=== PATIENT | male | born 1965 | race Two or more races ===

== ENCOUNTER 2020-04-29 16:09 | Outpatient (REF) | payer MEDICARE, MEDICAID, SELFPAY ==
--- NOTE | 2020-04-29 16:18 | XR_ITS ---
EXAMINATION: XR HAND, RIGHT CLINICAL INFORMATION: Pain in right hand COMPARISON: None TECHNIQUE: PA, lateral, and oblique views of the right hand. FINDINGS: The bones and soft tissues are normal. No fracture. Alignment is anatomic. Joint spaces are maintained. No erosions or soft tissue calcifications. XR/XR hand RT 2V IMPRESSION: Normal right hand.
== END 2020-04-29 16:10 | disposition home or self-care (01) ==
LOC: HO.XRAY 16:09
PROVIDERS: PCP Internal Medicine; Visit Provider Internal Medicine
DX: M79.641 Pain in right hand (principal)
CPT/HCPCS: 73120

== ENCOUNTER 2020-09-09 07:27 | Outpatient (REF) | payer MEDICARE, MEDICAID, SELFPAY | END 2020-09-09 07:28 | disposition home or self-care (01) | LOC: HO.HOSX 07:27 | PROVIDERS: Visit Provider Orthopaedic Surgery | DX: Z13.89 Encounter for screening for other disorder (principal) ==

== ENCOUNTER 2020-11-25 08:09 | Outpatient (REF) | payer MEDICARE, MEDICAID, SELFPAY ==
--- NOTE | ~2020-11-25 | XR_ITS ---
EXAMINATION: XR PELVIS CLINICAL INFORMATION: Pain COMPARISON: Previous x-ray March 2019 TECHNIQUE: AP view of the pelvis. FINDINGS: There is a left hip replacement in satisfactory position. No fracture or dislocation or x-ray evidence of loosening is seen. The right hip joint is normal. Bones of the pelvis are normal. XR/XR pelvis 1-2V IMPRESSION: Satisfactory appearance of left hip replacement.
== END 2020-11-25 08:10 | disposition home or self-care (01) ==
LOC: HO.HOSX 08:09
PROVIDERS: Visit Provider Orthopaedic Surgery
DX: M25.552 Pain in left hip (principal); Z96.649 Presence of unspecified artificial hip joint
CPT/HCPCS: 72170; 99212

== ENCOUNTER → 2021-07-22 12:50 | Outpatient (BNVA) | payer MEDICARE, MEDICAID, OTHER, SELFPAY | PROVIDERS: PCP Internal Medicine; Referring Provider Internal Medicine; Visit Provider Nurse Practitioner Family | DX: Z12.11 Encounter for screening for malignant neoplasm of colon (principal); K21.9 Gastro-esophageal reflux disease without esophagitis | CPT/HCPCS: 99202 ==

== ENCOUNTER 2021-09-17 10:38 | Outpatient (REF) | payer MEDICARE, OTHER, SELFPAY ==
[2021-09-17 11:14] LABS: MANUAL DIFF FLAG NO
[2021-09-17 12:11] LABS: Basophils Absolute Auto 0.1 X10*3/uL (0.0-0.2); Basophils Percent Auto 1.4 % (0-2); Eosinophils Absolute Auto 0.2 X10*3/uL (0.0-0.4); Eosinophils Percent Auto 2.9 % (0-4); Hematocrit 42.9 % (42.0-52.0); Hemoglobin 14.8 g/dl (14.0-18.0); Imm Gran Abs Auto 0.02 X10*3/uL (0.00-0.03); Imm Gran Pct Auto 0.3 % (0.0-0.4); Lymphocytes Absolute Auto 1.6 X10*3/uL (1.2-4.9); Lymphocytes Percent Auto 23.8 % (20-40); Mean Corpuscular HGB Conc 34.5 g/dl (31.0-36.0); Mean Corpuscular Hemoglobin 32.7 pg (27.0-33.0); Mean Corpuscular Volume 94.9 fL (80.0-98.0); Mean Platelet Volume 9.6 fL (9.4-12.4); Monocytes Absolute Auto 0.7 X10*3/uL (0.1-1.2); Monocytes Percent Auto 10.1 % (2-11); Neutrophils Percent Auto 61.5 % (45-73); Platelet Count 465 X10*3/uL (160-400); Red Blood Count 4.52 X10*6/uL (4.60-5.80); Red Cell Distribution Width 12.9 % (11.0-16.0); White Blood Count 6.5 X10*3/uL (4.8-10.8)
[2021-09-17 13:11] LABS: Thyroid Stimulating Hormone 0.95 uIU/mL (0.32-4.0)
[2021-09-17 13:12] LABS: Alanine Aminotransferase 90 U/L (0-40); Alkaline Phosphatase 281 U/L (39-117); Anion Gap 13 (12-20); Aspartate Amino Transferase 173 U/L (5-37); Bilirubin Total 0.2 mg/dL (0.0-1.0); Blood Urea Nitrogen 8 mg/dL (9-16); Calcium 8.8 mg/dL (8.4-10.2); Carbon Dioxide 24 mmol/L (22-29); Chloride 101 mmol/L (96-108); Cholesterol 176 mg/dL; Estimated Glomerular Filt Rate > 60; Glucose Random 108 mg/dL (60-115); HDL Cholesterol 38 mg/dL; Potassium 4.1 mmol/L (3.3-5.1); Sodium 134 mmol/L (135-145); Total Protein 7.4 g/dL (6.5-8.0); Triglycerides 570 mg/dL
[2021-09-17 13:28] LABS: Folate 12.7 ng/mL (> or = 4.0); Vitamin B12 345 pg/mL (200-900)
[2021-09-21 13:27] LABS: Vitamin D 25-OH, D2 <4 ng/mL; Vitamin D 25-OH, D3 23 ng/mL; Vitamin D 25-OH, Total 23 ng/mL (30-100)
== END 2021-09-17 10:39 | disposition home or self-care (01) ==
LOC: HO.LAB 10:38
PROVIDERS: Absent Provider Nurse Practitioner Family; PCP Internal Medicine; Visit Provider Nurse Practitioner Acute Care
DX: E78.00 Pure hypercholesterolemia, unspecified (principal); E55.9 Vitamin D deficiency, unspecified
CPT/HCPCS: 36415; 80053; 80061; 82306; 82607; 82746; 84443; 85025

== ENCOUNTER 2021-09-18 12:38 | Outpatient (REF) | payer MEDICARE, OTHER, SELFPAY | END 2021-09-18 12:39 | disposition home or self-care (01) | LOC: HO.LNP 12:38 | PROVIDERS: Visit Provider Nurse Practitioner Family | DX: K21.9 Gastro-esophageal reflux disease without esophagitis (principal) | CPT/HCPCS: 87338 ==

== ENCOUNTER 2022-11-13 06:05 | Emergency (ER) | payer MEDICARE, MEDICAID, SELFPAY ==
[2022-11-13] VITALS (7 sets, daily range): BP systolic 115–204; BP diastolic 72–136; PULSE 84–97; RESP 14–21; TEMP 36.6; O2SAT 95–100; BMI 23.8
--- NOTE | ~2022-11-13 | CT_ITS ---
EXAMINATION: CT HEAD WITHOUT CONTRAST CLINICAL INFORMATION: Facial numbness COMPARISON: 05/26/2018 TECHNIQUE: Contiguous axial imaging was performed from the skull base to vertex without intravenous administration of contrast. This CT examination was performed using dose optimization techniques as appropriate, variously including the following: *Automated exposure control *Adjustment of mA and/or kV according to patient size (this includes techniques or standardized protocols for targeted exams where dose is matched to indication/reason for exam; i.e. extremities or head) *Use of iterative reconstruction technique DLP: 611 mGy-cm FINDINGS: There is no evidence of acute intracranial hemorrhage or territorial infarction. No abnormal mass effect or midline shift is seen. Raman to white matter differentiation is well preserved. No extra-axial fluid collections are identified. No hydrocephalus. No significant volume loss. There is no abnormal attenuation within the brain parenchyma. No acute osseous or soft tissue abnormality. The mastoid air cells and visualized portions of the paranasal sinuses are well aerated. CT/CT head/brain wo IV con IMPRESSION: No acute intracranial pathology.
--- NOTE | 2022-11-13 06:11 | ECG_ITS ---
Test Reason : NUMBNESS Blood Pressure : / mmHG Vent. Rate : 086 BPM Atrial Rate : 086 BPM P-R Int : 144 ms QRS Dur : 080 ms QT Int : 382 ms P-R-T Axes : 027 -07 041 degrees QTc Int : 457 ms Normal sinus rhythm Minimal voltage criteria for LVH, may be normal variant ( R in aVL ) Nonspecific ST abnormality Abnormal ECG When compared with ECG of 14-MAY-2019 13:55, No significant change was found Referred By: Lisa Ward Electronically Signed By:NOE TRACY
--- NOTE | 2022-11-13 06:14 | ED.GENADULT ---
HPI - General Adult General Chief complaint: General Medical Stated complaint: Chest pain Time Seen by Provider: 11/13/22 06:10 Source: patient and family Mode of arrival: ambulatory Limitations: no limitations History of Present Illness HPI narrative: Patient comes to the emergency room complaining of right-sided chest pain, bilateral facial numbness, slurred speech, bilateral leg cramping. Patient states that all of his symptoms started approximately 6-1/2 hours ago. Related Data Home Medications Medication Instructions Recorded Confirmed thiamine HCl (vitamin B1) 100 mg 100 mg PO DAILY 04/26/20 11/13/22 tablet omeprazole 20 mg capsule,delayed 20 mg PO BID@0630,1630 11/13/22 11/13/22 release Previous Rx's Medication Instructions Recorded hydroxyzine HCl 50 mg tablet 50 mg PO BID #180 tabs 09/14/22 fluticasone propionate 50 1 spray intranasal DAILY #16 mL 10/10/22 mcg/actuation nasal spray,suspension tramadol 50 mg tablet 50 mg PO BID PRN pain #56 tabs 10/29/22 clonazepam 1 mg tablet 1 mg PO DAILY PRN anxiety 30 days 11/03/22 #30 tabs gabapentin 300 mg capsule 300 mg PO BID #180 caps 11/06/22 calcium carbonate 500 mg calcium 500 mg PO DAILY #30 tabs 11/13/22 (1,250 mg) tablet magnesium oxide 500 mg capsule 500 mg PO DAILY #30 caps 11/13/22 Allergies Allergy/AdvReac Type Severity Reaction Status Date / Time fenofibrate [Tricor] Allergy Unknown nausea, Verified 11/13/22 06:18 altered taste Review of Systems Review of Systems: Constitutional : No Weight loss, No Fever, No Chills, No Night Sweats, No Fatigue, No Malaise ENT/Mouth : No Hearing loss, No Ear Pain, No Nasal Congestion, No Sinus Pain, No Hoarseness, No sore throat, No Rhinorrhea, No Swallowing Difficulty Eyes: No Eye Pain, No Swelling, No Redness, No Foreign Body, No Discharge, No Vision Changes Cardiovascular : Complaining of right-sided Chest Pain, No SOB, No Dyspnea on Exertion, No Orthopnea, No Edema, No Palpitations Respiratory : No Cough, No Sputum, No Wheezing, No Smoke Exposure, No Dyspnea Gastrointestinal : No Nausea, No Vomiting, No Diarrhea, No Constipation, No abdominal Pain, No Hematochezia, No Melena Genitourinary : no irregular bleeding, No Dysuria, No Urinary Frequency, No Hematuria, No Urinary Incontinence, No Urgency, No Flank Pain, No Urinary Flow Changes, No Hesitancy Musculoskeletal : No joint pain, No Myalgias, No Joint Swelling Skin : No Skin Lesions, No rash Neuro : No Weakness, No Numbness, complain of paresthesias in the face bilaterally, both arms, both legs No Loss of Consciousness, No Dizziness, No Headache Psych : No Anxiety/Panic, No Depression, No SI/HI/AH/VH, No Social Issues, Heme/Lymph: No Bruising, No Bleeding,No Lymphadenopathy Endocrine : No Polyuria, No Polydipsia, No Temperature Intolerance FOR[facility], LAT[facility] Past Medical History Medical History Alcohol abuse Anxiety and depression Avascular necrosis of bone of left hip Colon cancer screening declined GERD (gastroesophageal reflux disease) History of pancreatitis Hypercholesterolemia Hypertriglyceridemia Insomnia Polysubstance abuse Surgical History H/O total hip arthroplasty History of drainage of abscess Family History Family History Father CAD (coronary artery disease) S/P CABG x 2 Mother Hypertension Osteoarthritis Brother Alive and well Sister Deaf Maternal Grandmother Cancer Maternal Grandfather Dementia Family/Other Alzheimers disease Social History Social History Housing: Apartment Alcohol intake: current Alcohol intake frequency: holidays/special occasions only Patient Tobacco Use Status: Former Tobacco user Tobacco use type: Cigarette Years Smoked: 2010 quit e-Cigarette/Vaping Use: Never Used Second Hand Smoke Exposure: No Advance Directives: No Advance Directives Information Provided: Yes Current occupational status: disabled and other Current occupation: right handed. Cognitive needs: No Hearing needs: No Vision needs: No Physical Exam ED Vital Signs: Vital Signs - 24 hr 11/13/22 06:11 11/13/22 06:25 11/13/22 06:43 Temperature 97.8 F Pulse Rate 97 87 85 Respiratory Rate 19 14 18 Blood Pressure 204/136 H 196/124 H 166/108 H Pulse Oximetry 100 98 97 Oxygen Delivery Method Room Air Room Air Room Air 05/26/23 08:44 11/13/22 10:09 11/13/22 10:10 Temperature Pulse Rate 91 84 85 Respiratory Rate 21 H 21 H 18 Blood Pressure 161/89 H 134/94 H 134/94 H Pulse Oximetry 97 95 Oxygen Delivery Method Room Air Room Air Room Air 11/13/22 11:41 Temperature Pulse Rate 94 Respiratory Rate 18 Blood Pressure 115/72 Pulse Oximetry 95 Oxygen Delivery Method Room Air BMI result Body Mass Index 23.8 Const Other: Constitutional : No Weight loss, No Fever, No Chills, No Night Sweats, No Fatigue, No Malaise ENT/Mouth : No Hearing loss, No Ear Pain, No Nasal Congestion, No Sinus Pain, No Hoarseness, No sore throat, No Rhinorrhea, No Swallowing Difficulty Eyes: No Eye Pain, No Swelling, No Redness, No Foreign Body, No Discharge, No Vision Changes Cardiovascular : No Chest Pain, No SOB, No Dyspnea on Exertion, No Orthopnea, No Edema, No Palpitations Respiratory : No Cough, No Sputum, No Wheezing, No Smoke Exposure, No Dyspnea Gastrointestinal : No Nausea, No Vomiting, No Diarrhea, No Constipation, No abdominal Pain, No Hematochezia, No Melena Genitourinary : no irregular bleeding, No Dysuria, No Urinary Frequency, No Hematuria, No Urinary Incontinence, No Urgency, No Flank Pain, No Urinary Flow Changes, No Hesitancy Musculoskeletal : No joint pain, No Myalgias, No Joint Swelling Skin : No Skin Lesions, No rash Neuro : No Weakness, No Numbness, No Paresthesias, No Loss of Consciousness, No Dizziness, No Headache Psych : No Anxiety/Panic, No Depression, No SI/HI/AH/VH, No Social Issues, Heme/Lymph: No Bruising, No Bleeding,No Lymphadenopathy Endocrine : No Polyuria, No Polydipsia, No Temperature Intolerance NIH Stroke Scale Level of Consciousness: Alert Level of Consciousness Questions: Answers both questions correctly Level of Consciousness Commands: Performs both tasks correctly Best Gaze: Normal Visual: No visual loss Facial Palsy: Normal Motor Arm (Right): No drift Motor Arm (Left): No drift Motor Leg (Right): No drift Motor Leg (Left): No drift Limb Ataxia: Absent Sensory: Normal Best Language: No aphasia Dysarthia: Normal Extinction and Inattention: No abnormality Score: 0 Course Course Course Narrative: -patient seems very anxious. Patient's description of symptoms do not match specific area of stroke. Patient is outside of the window of treatment, patient arrived 6-1/2 hours after the onset of treatment. Symptoms are very mild, NIH score 0, patient is not a candidate for tPA -of patient's labs and imaging pending Reevaluation(s) Reevaluation #1: Patient is feeling much better following treatment. He has received magnesium calcium and potassium. His paresthesias have resolved. Will place patient on oral supplementation and he already has follow-up on the 15 of November. I am recommending repeat blood work at that time Time: 11:52 Medications Administered Discontinued Medications Generic Name Dose Route Start Last Admin Trade Name [place] PRN Reason Stop Dose Admin Amlodipine Besylate 10 mg 11/13/22 06:29 11/13/22 06:44 Amlodipine Besylate 10 Mg Tablet PO 11/13/22 06:30 10 mg ONCE ONE Administration Protocol Aspirin 325 mg 11/13/22 06:12 11/13/22 06:20 Aspirin Enteric Coated 325 Mg Tablet. PO 11/13/22 06:13 325 mg ONCE ONE Administration Calcium Carbonate/Cholecalciferol 500 mg 11/13/22 08:09 11/13/22 08:21 Calcium + Vitamin D 250 Mg Tablet PO 11/13/22 08:10 500 mg ONCE ONE Administration Folic Acid 1 mg 11/13/22 08:08 11/13/22 08:21 Folic Acid 1 Mg Tablet PO 11/13/22 08:09 1 mg ONCE ONE Administration Magnesium Sulfate 2 gm in 50 mls @ 25 mls/hr 11/13/22 07:39 11/13/22 10:10 Magnesium Sulfate/H2o IV 11/13/22 09:38 Infused ONCE ONE Infusion Lorazepam 1 mg 11/13/22 06:12 11/13/22 06:24 Lorazepam 1 Mg Tablet PO 11/13/22 06:13 1 mg ONCE ONE Administration Magnesium Oxide 800 mg 11/13/22 11:12 11/13/22 11:40 Magnesium Oxide 400 Mg Tablet PO 11/13/22 11:13 800 mg ONCE ONE Administration Multivitamins/Vitamin C 1 tab 11/13/22 08:08 11/13/22 08:21 Multivitamin Tablet PO 11/13/22 08:09 1 tab ONCE ONE Administration Potassium Chloride 40 meq 11/13/22 07:40 11/13/22 08:09 Potassium Chloride Er 20 Meq Tab.Er.Prt PO 11/13/22 07:41 40 meq ONCE ONE Administration Thiamine HCl 100 mg 11/13/22 08:08 11/13/22 08:21 Thiamine Hcl 100 Mg Tablet PO 11/13/22 08:09 100 mg ONCE ONE Administration Medical Decision Making Medical Decision Making MDM Narrative: -NIH score 0, patient is outside of the window of treatment for tPA, patient is at 6 and 1/2 hours on arrival daily. -patient noted to be hypertensive on arrival, 204/136, patient states he has never been told he is hypertensive. Patient given p.o. amlodipine 10 mg -my interpretation head CT, no intracranial bleed Lab Data 11/13/22 06:17 11/13/22 06:17 Labs: Lab Results 11/13/22 11/13/22 11/13/22 Range/Units 06:17 06:17 06:17 WBC 9.3 (4.8-10.8) X10*3/uL RBC 4.35 L (4.60-5.80) X10*6/uL Hgb 14.6 (14.0-18.0) g/dl Hct 40.9 L (42.0-52.0) % MCV 94.0 (80.0-98.0) fL MCH 33.6 H (27.0-33.0) pg MCHC 35.7 (31.0-36.0) g/dl RDW 13.3 (11.0-16.0) % Plt Count 345 D (160-400) X10*3/uL MPV 9.6 (9.4-12.4) fL Immature Gran % (Auto) 0.6 H (0.0-0.4) % Neut % (Auto) 46.3 (45-73) % Lymph % (Auto) 38.7 (20-40) % [place] % (Auto) 10.3 (2-11) % Eos % (Auto) 2.9 (0-4) % Baso % (Auto) 1.2 (0-2) % Lymph # (Auto) 3.6 (1.2-4.9) X10*3/uL [place] # (Auto) 1.0 (0.1-1.2) X10*3/uL Eos # (Auto) 0.3 (0.0-0.4) X10*3/uL Baso # (Auto) 0.1 (0.0-0.2) X10*3/uL Abs Immat Gran (auto) 0.06 H (0.00-0.03) X10*3/uL Absolute Neuts (auto) 4.3 (2.0-8.3) x10*3/uL Absolute Nucleated RBC 0.030 H (0.0-0.012) X10*3/uL Nucleated RBC % (auto) 0.3 H (0.0-0.2) /100WBC Sodium 140 (135-145) mmol/L Potassium 3.7 (3.3-5.1) mmol/L Chloride 101 (96-108) mmol/L Carbon Dioxide 25 (22-29) mmol/L Anion Gap 18 (12-20) BUN 10 (9-16) mg/dL Creatinine 0.77 (0.5-1.4) mg/dL Estim Creat Clear Calc 82.7 Estimated GFR > 60 Random Glucose 94 (60-115) mg/dL Calcium 6.6 L D (8.4-10.2) mg/dL Phosphorus (2.7-4.5) mg/dL Magnesium < 0.6 L* (1.6-2.6) mg/dL Total Bilirubin 0.3 (0.0-1.0) mg/dL Direct Bilirubin < 0.1 (0.0-0.5) mg/dL AST 103 H (5-37) U/L ALT 35 (0-40) U/L Alkaline Phosphatase 140 H (39-117) U/L Troponin I High Sens 3.3 (<3.5-35.0) ng/L Total Protein 7.9 (6.5-8.0) g/dL Albumin 3.9 (3.5-5.0) g/dL Vitamin B12 (200-900) pg/mL Folate (> or = 4.0) ng/mL Urine Color Urine Appearance Urine pH (5.0-9.0) Ur Specific [place] (1.005-1.025) Urine Protein (Neg-Trace) mg/dL Urine Glucose (UA) (Negative) mg/dL Urine Ketones (Negative) mg/dL Urine Blood (Negative) Urine Nitrite (Negative) Ur Leukocyte Esterase (Negative) Urine Opiates Screen (Not Detect) Urine Fentanyl Screen (Not Detect) Ur Barbiturates Screen (Not Detect) Ur Phencyclidine Scrn (Not Detect) Ur Amphetamines Screen (Not Detect) U Benzodiazepines Scrn (Not Detect) Urine Cocaine Screen (Not Detect) U Marijuana (THC) Screen (Not Detect) Ethyl Alcohol < 10 mg/dL 11/13/22 11/13/22 11/13/22 Range/Units 10:16 10:16 10:16 WBC (4.8-10.8) X10*3/uL RBC (4.60-5.80) X10*6/uL Hgb (14.0-18.0) g/dl Hct (42.0-52.0) % MCV (80.0-98.0) fL MCH (27.0-33.0) pg MCHC (31.0-36.0) g/dl RDW (11.0-16.0) % Plt Count (160-400) X10*3/uL MPV (9.4-12.4) fL Immature Gran % (Auto) (0.0-0.4) % Neut % (Auto) (45-73) % Lymph % (Auto) (20-40) % [place] % (Auto) (2-11) % Eos % (Auto) (0-4) % Baso % (Auto) (0-2) % Lymph # (Auto) (1.2-4.9) X10*3/uL [place] # (Auto) (0.1-1.2) X10*3/uL Eos # (Auto) (0.0-0.4) X10*3/uL Baso # (Auto) (0.0-0.2) X10*3/uL Abs Immat Gran (auto) (0.00-0.03) X10*3/uL Absolute Neuts (auto) (2.0-8.3) x10*3/uL Absolute Nucleated RBC (0.0-0.012) X10*3/uL Nucleated RBC % (auto) (0.0-0.2) /100WBC Sodium 141 (135-145) mmol/L Potassium 3.3 (3.3-5.1) mmol/L Chloride 102 (96-108) mmol/L Carbon Dioxide 28 (22-29) mmol/L Anion Gap 14 (12-20) BUN 9 (9-16) mg/dL Creatinine 0.72 (0.5-1.4) mg/dL Estim Creat Clear Calc 88.4 Estimated GFR > 60 Random Glucose 110 (60-115) mg/dL Calcium 6.6 L (8.4-10.2) mg/dL Phosphorus 3.8 (2.7-4.5) mg/dL Magnesium 1.3 L* (1.6-2.6) mg/dL Total Bilirubin (0.0-1.0) mg/dL Direct Bilirubin (0.0-0.5) mg/dL AST (5-37) U/L ALT (0-40) U/L Alkaline Phosphatase (39-117) U/L Troponin I High Sens (<3.5-35.0) ng/L Total Protein (6.5-8.0) g/dL Albumin (3.5-5.0) g/dL Vitamin B12 261 (200-900) pg/mL Folate > 20.0 (> or = 4.0) ng/mL Urine Color Yellow Urine Appearance Clear Urine pH 6.0 (5.0-9.0) Ur Specific [place] 1.010 (1.005-1.025) Urine Protein Negative (Neg-Trace) mg/dL Urine Glucose (UA) Negative (Negative) mg/dL Urine Ketones Negative (Negative) mg/dL Urine Blood Negative (Negative) Urine Nitrite Negative (Negative) Ur Leukocyte Esterase Negative (Negative) Urine Opiates Screen Not Detected (Not Detect) Urine Fentanyl Screen Not Detected (Not Detect) Ur Barbiturates Screen Not Detected (Not Detect) Ur Phencyclidine Scrn Not Detected (Not Detect) Ur Amphetamines Screen Not Detected (Not Detect) U Benzodiazepines Scrn Not Detected (Not Detect) Urine Cocaine Screen POSITIVE H (Not Detect) U Marijuana (THC) Screen Not Detected (Not Detect) Ethyl Alcohol mg/dL Radiology Impression Discussion of test interpretation with radiology: I have reviewed the radiologist's reading. Radiologist Impression: FINDINGS: There is no evidence of acute intracranial hemorrhage or territorial infarction. No abnormal mass effect or midline shift is seen. Raman to white matter differentiation is well preserved. No extra-axial fluid collections are identified. No hydrocephalus. No significant volume loss. There is no abnormal attenuation within the brain parenchyma. No acute osseous or soft tissue abnormality. The mastoid air cells and visualized portions of the paranasal sinuses are well aerated. ? CT/CT head/brain wo IV con IMPRESSION: No acute intracranial pathology. Critical Care Time Critical Care Time Critical Care Time: Yes Total Critical Care Time: 35 Attestation: 35 minutes of a of critical care time spent outside of any procedures including bedside re-evaluations, interpretation of medical data, re-evaluations, documentation in terms of a potentially severe morbidity related illness including severe electrolyte abnormalities with neurologic manifestations Discharge Plan Discharge Clinical Impression: Chest pain, Hypomagnesemia, Hypocalcemia, Paresthesia, Alcohol abuse, Elevated LFTs Patient Disposition: Home, Self-Care Instructions: Chest Pain (DC), Abuse of Alcohol (DC), Paresthesia (ED), Hypocalcemia (ED), Hypomagnesemia (ED) Prescriptions: New magnesium oxide 500 mg capsule 500 mg PO DAILY Qty: 30 0RF calcium carbonate 500 mg calcium (1,250 mg) tablet 500 mg PO DAILY Qty: 30 0RF No Action hydroxyzine HCl 50 mg tablet 50 mg PO BID Qty: 180 2RF fluticasone propionate 50 mcg/actuation spray,suspension 1 spray intranasal DAILY Qty: 16 5RF tramadol 50 mg tablet 50 mg PO BID PRN (Reason: pain) Qty: 56 0RF clonazepam 1 mg tablet 1 mg PO DAILY PRN (Reason: anxiety) 30 Days Qty: 30 0RF gabapentin 300 mg capsule 300 mg PO BID Qty: 180 2RF omeprazole 20 mg Capsule,Delayed Release(Dr/Ec) 20 mg PO BID@0630,1630 thiamine HCl (vitamin B1) 100 mg tablet 100 mg PO DAILY Referrals: Physician,Unknown J [Primary Care Provider] - 3 days
--- NOTE | 2022-11-13 06:18 | PC.NURSE ---
Pt to CT.
[2022-11-13] MEDS: Aspirin Enteric Coated 325 MG TABLET.DR PO (06:20)
[2022-11-13 06:24] LABS: MANUAL DIFF FLAG NO
[2022-11-13] MEDS: LORazepam 1 MG TABLET PO (06:24)
[2022-11-13 06:31] LABS: Basophils Absolute Auto 0.1 X10*3/uL (0.0-0.2); Basophils Percent Auto 1.2 % (0-2); Eosinophils Absolute Auto 0.3 X10*3/uL (0.0-0.4); Eosinophils Percent Auto 2.9 % (0-4); Hematocrit 40.9 % (42.0-52.0); Hemoglobin 14.6 g/dl (14.0-18.0); Imm Gran Abs Auto 0.06 X10*3/uL (0.00-0.03); Imm Gran Pct Auto 0.6 % (0.0-0.4); Lymphocytes Absolute Auto 3.6 X10*3/uL (1.2-4.9); Lymphocytes Percent Auto 38.7 % (20-40); Mean Corpuscular HGB Conc 35.7 g/dl (31.0-36.0); Mean Corpuscular Hemoglobin 33.6 pg (27.0-33.0); Mean Platelet Volume 9.6 fL (9.4-12.4); Monocytes Percent Auto 10.3 % (2-11); NRBC Pct Auto 0.3 /100WBC (0.0-0.2); Neutrophils Absolute Auto 4.3 x10*3/uL (2.0-8.3); Neutrophils Percent Auto 46.3 % (45-73); Platelet Count 345 X10*3/uL (160-400); Red Blood Count 4.35 X10*6/uL (4.60-5.80); Red Cell Distribution Width 13.3 % (11.0-16.0); White Blood Count 9.3 X10*3/uL (4.8-10.8)
[2022-11-13] MEDS: amLODIPine Besylate 10 MG TABLET PO (06:44)
[2022-11-13 07:04] LABS: Troponin-I High Sensitivity 3.3 ng/L (<3.5-35.0)
--- NOTE | 2022-11-13 07:14 | PC.NURSE ---
Resumed care of this patient, He is a/ox4, reporting he is feeling much better, the numbness is gone, stating he is feeling much better, he feels it may have been an anxiety attack. Awaiting lab results at this time
[2022-11-13 07:18] LABS: Alanine Aminotransferase 35 U/L (0-40); Albumin Level 3.9 g/dL (3.5-5.0); Alkaline Phosphatase 140 U/L (39-117); Anion Gap 18 (12-20); Aspartate Amino Transferase 103 U/L (5-37); Bilirubin Direct < 0.1 mg/dL (0.0-0.5); Bilirubin Total 0.3 mg/dL (0.0-1.0); Blood Urea Nitrogen 10 mg/dL (9-16); Calcium 6.6 mg/dL (8.4-10.2); Carbon Dioxide 25 mmol/L (22-29); Chloride 101 mmol/L (96-108); Creatinine Clr Calc Pharmacy 82.7; Estimated Glomerular Filt Rate > 60; Ethanol < 10 mg/dL; Glucose Random 94 mg/dL (60-115); Potassium 3.7 mmol/L (3.3-5.1); Sodium 140 mmol/L (135-145); Total Protein 7.9 g/dL (6.5-8.0)
[2022-11-13 07:39] LABS: Magnesium < 0.6 mg/dL (1.6-2.6)
[2022-11-13] MEDS: Magnesium Sulfate/H2O 2 GM/50 ML PIGGYBACK IV (08:09)
[2022-11-13] MEDS: Potassium Chloride ER 20 MEQ TAB.ER.PRT 40 MEQ PO (08:09)
[2022-11-13] MEDS: Folic Acid 1 MG TABLET PO (08:21)
[2022-11-13] MEDS: Thiamine HCL 100 MG TABLET PO (08:21)
[2022-11-13] MEDS: Calcium + Vitamin D 250 MG TABLET 500 MG PO (08:21)
[2022-11-13] MEDS: Multivitamin TABLET 1 TAB PO (08:21)
--- NOTE | 2022-11-13 08:22 | PC.NURSE ---
plan to repeat labs when Mg is done, PO replacement given, per
--- NOTE | 2022-11-13 10:29 | PHA.MEDREC ---
Addendum entered by Kumar Mccord 11/13/22 10:48: Patient mentioned that they are supposed to be on calcitriol for their hip replacement surgery, but admitted that they haven't taken the medication in months. Patient's pharmacy states that they haven't filled calcitriol since 09/22/21. Original Note: Pharmacy Consult ? Medication Reconciliation Pharmacy has completed the medication reconciliation. Spoke to patient to confirm meds.
[2022-11-13 10:39] LABS: Appearance Urine Clear; Color Urine Yellow; Glucose Urine UA Negative (Negative); Leukocyte Esterase Urine Negative (Negative); Nitrite Urine Negative (Negative); Urine Blood Negative (Negative); Urine Ketones Negative (Negative); Urine Protein Negative (Neg-Trace)
[2022-11-13 10:47] LABS: Amphetamine Screen Urine Not Detected (Not Detect); Barbiturates, Urine Not Detected (Not Detect); Benzodiazepines Screen Urine Not Detected (Not Detect); Cannabinoid Screen Urine Not Detected (Not Detect); Cocaine Screen Urine POSITIVE (Not Detect); Fentanyl, urine Not Detected (Not Detect); Opiate Screen Urine Not Detected (Not Detect); Phencyclidine Screen Urine Not Detected (Not Detect)
[2022-11-13 11:02] LABS: Anion Gap 14 (12-20); Blood Urea Nitrogen 9 mg/dL (9-16); Calcium 6.6 mg/dL (8.4-10.2); Carbon Dioxide 28 mmol/L (22-29); Chloride 102 mmol/L (96-108); Creatinine Clr Calc Pharmacy 88.4; Estimated Glomerular Filt Rate > 60; Glucose Random 110 mg/dL (60-115); Magnesium 1.3 mg/dL (1.6-2.6); Phosphorus 3.8 mg/dL (2.7-4.5); Potassium 3.3 mmol/L (3.3-5.1); Sodium 141 mmol/L (135-145)
[2022-11-13 11:30] LABS: Folate > 20.0 ng/mL (> or = 4.0); Vitamin B12 261 pg/mL (200-900)
[2022-11-13] MEDS: Magnesium Oxide 400 MG TABLET 800 MG PO (11:40)
== END 2022-11-13 12:02 | disposition home or self-care (01) ==
PROVIDERS: Emergency Medicine; Emergency Provider Emergency Medicine
DX: R07.9 Chest pain, unspecified (principal); E83.42 Hypomagnesemia; E83.51 Hypocalcemia; R20.2 Paresthesia of skin; F10.10 Alcohol abuse, uncomplicated; Y90.0 Blood alcohol level of less than 20 mg/100 ml; R79.89 Other specified abnormal findings of blood chemistry; F19.10 Other psychoactive substance abuse, uncomplicated; Z79.899 Other long term (current) drug therapy
CPT/HCPCS: 36415; 70450; 80048; 80076; 80307; 81003; 82607; 82746; 83735; 84100; 84484; 85025; 93005; 96365; 96366; 99285; J3475

== ENCOUNTER 2022-11-19 12:17 | Outpatient (REF) | payer MEDICARE, MEDICAID, SELFPAY | END 2022-11-19 12:18 | disposition home or self-care (01) | LOC: HO.HOSX 12:17 | PROVIDERS: Visit Provider Orthopaedic Surgery | DX: Z13.89 Encounter for screening for other disorder (principal) ==

== ENCOUNTER 2023-01-28 11:41 | Outpatient (REF) | payer MEDICARE, MEDICAID, SELFPAY ==
[2023-01-28 14:54] LABS: Alanine Aminotransferase 28 U/L (0-40); Albumin Level 4.3 g/dL (3.5-5.0); Alkaline Phosphatase 101 U/L (39-117); Anion Gap 17 (12-20); Aspartate Amino Transferase 52 U/L (5-37); Bilirubin Total 0.5 mg/dL (0.0-1.0); Blood Urea Nitrogen 7 mg/dL (9-16); Calcium 8.5 mg/dL (8.4-10.2); Carbon Dioxide 30 mmol/L (22-29); Chloride 97 mmol/L (96-108); Cholesterol 224 mg/dL; Estimated Glomerular Filt Rate > 60; Glucose Random 95 mg/dL (60-115); HDL Cholesterol 64 mg/dL; LDL Cholesterol Calculated 97 mg/dl; Potassium 2.8 mmol/L (3.3-5.1); Sodium 141 mmol/L (135-145); Triglycerides 318 mg/dL
== END 2023-01-28 11:42 | disposition home or self-care (01) ==
LOC: HO.LAB 11:41
PROVIDERS: PCP Internal Medicine; Visit Provider Internal Medicine
DX: E78.00 Pure hypercholesterolemia, unspecified (principal)
CPT/HCPCS: 36415; 80053; 80061

== ENCOUNTER 2023-02-16 09:34 | Outpatient (AMB) | payer MEDICARE, MEDICAID, SELFPAY ==
--- NOTE | 2023-02-16 09:37 | MHC.PC.OV ---
Vital Signs 02/16/23 09:42 Height 5 ft 2 in Weight 133 lb BMI 24.3 BP 138/72 Blood Pressure Location Lt brachial Position Sitting Pulse 82 Pulse Source Pulse Oximeter Pulse Oximetry (%) 97 Oxygen Delivery Method Room Air Intake Visit Reasons: Med visit follow up Allergies fenofibrate [Tricor] Allergy (Unknown, Verified 02/16/23 09:38) nausea, altered taste Medication List - Last Reconciled 02/16/23 by Gillian Dupree MD clonazepam 1 mg PO DAILY PRN 30 days fluticasone propionate 50 mcg/actuation 1 spray intranasal DAILY gabapentin 300 mg PO BID hydroxyzine HCl 50 mg PO BID omeprazole 20 mg PO BID@0630,1630 thiamine HCl (vitamin B1) 100 mg PO DAILY tramadol 50 mg PO BID PRN Tobacco use date assessed: 02/16/23 Dental Screening Dental Screen Date: 02/16/23 Did you have a dental visit in the last 12 months?: Yes Did you have a dental problem in the last 6 months where you did not have access to dental care?: No Was dental information given to patient?: Patient has dentist HPI Med visit follow up HPI Details 57-year-old male with a history of alcohol abuse GERD hypercholesterolemia gel as anxiety disorder last seen in November 2021. ER visit October 2022 chest pain hypo magnesemia hypocalcemia paresthesia alcohol abuse elevated liver function test replacement of the electrolytes. Discussed with the patient regarding the blood work that was done January 28 showing hypokalemia and the magnesium was not tested. Patient was given request today for blood work. Discussed the patient with the patient to take care of himself as he has not been. Patient drinks a pt of vodka week and occasional beer. Discussed the need to lower this down did notice liver function did come down but still a problem. [facility] Medical History Alcohol abuse Anxiety and depression Avascular necrosis of bone of left hip Colon cancer screening declined GERD (gastroesophageal reflux disease) History of pancreatitis Hypercholesterolemia Hypertriglyceridemia Insomnia Polysubstance abuse Surgical History H/O total hip arthroplasty History of drainage of abscess Family History (Updated 02/16/23 @ 09:40 by Perez Lau MA) Father CAD (coronary artery disease) S/P CABG x 2 Mother Hypertension Osteoarthritis Brother Alive and well Sister Deaf Maternal Grandmother Cancer Maternal Grandfather Dementia Family/Other Alzheimers disease Social History Housing: Apartment Alcohol intake: current Alcohol intake frequency: holidays/special occasions only Patient Tobacco Use Status: Former Tobacco user Tobacco use type: Cigarette Years Smoked: 2011 quit e-Cigarette/Vaping Use: Never Used Second Hand Smoke Exposure: No Current occupational status: disabled and other Current occupation: right handed. Cognitive needs: No Hearing needs: No Vision needs: No Questionnaire Thrive Questionnaire Date Thrive assessed: 02/16/23 I am a: Patient What is your living situation today?: I have a steady place to live Within the past 12 months, did the food you bought not last and you didn't have the money to get more?: Never true Within the past 12 months, did you worry whether your food would run out before you got money to buy more?: Never true Do you have trouble paying for medicines?: No Do you have trouble getting transportation to medical appointments?: No Do you have trouble paying your heating and electricity bill?: No Do you have trouble taking care of your child, family member or friend?: No Do you have trouble with day-to-day activities such as bathing, preparing meals, shopping, managing finances, etc.?: No Are you currently unemployed and looking for a job?: No Are you interested in more education?: No Please select the resources that you would like help with: None Currently or been in a relationship where the following occur: no concerns reported AUDIT C Alcohol Use Questionnaire (AUDIT-C) 1. How often do you have a drink containing alcohol?: 2-4 times a month 2. How many drinks containing alcohol do you have on a typical day when you are drinking?: 3 or 4 3. How often do you have six or more drinks on one occasion?: Never Total Score: 3 Score Reviewed/Action Taken: Yes (education provided on health risks associated with alcohol use. ) PRADIP-7 AMB Questionnaire PRADIP-7 Date PRADIP - 7 assessed: 02/16/23 Feeling nervous, anxious, or on edge: 1 = Several days Not being able to stop or control worryin = Several days Worrying too much about different things: 1 = Several days Trouble relaxin = Several days Being so restless that it is hard to sit still: 1 = Several days Becoming easily annoyed or irritable: 1 = Several days Feeling afraid as if something awful might happen: 1 = Several days Total PRADIP-7 score (0-4 normal; 5-9 mild; 10-14 moderate; 15-21 severe): 7 Source: Developed by Drs. Andrae Del Rio, Jennifer Ahmadi, Zeferino Villarreal and colleagues, with an educational medardo from [employer]. Physical exam (Primary Care) Vital Signs: Last Vital Signs Pulse 82 02/16/23 09:42 BP 138/72 02/16/23 09:42 Pulse Ox 97 02/16/23 09:42 Oxygen Delivery Method Room Air 02/16/23 09:42 BMI result Body Mass Index 24.3 Tobacco/Smoking Status: Tobacco use Status Tobacco use date assessed 02/16/23 02/16/23 09:41 Patient Tobacco Use Status Former Tobacco user 02/16/23 09:41 Tobacco use type Cigarette 02/16/23 09:41 e-Cigarette/Vaping Use Never Used 02/16/23 09:41 Thrive Assessment: Date of Thrive Assessment Date Thrive assessed 02/16/23 02/16/23 09:41 Currently or been in a relationship where the following occur: no concerns reported Const General: alert; No acute distress Eyes Conjunctivae: conjunctivae normal Resp Auscultation: clear to auscultation bilaterally Cardio Rate: regular rate Rhythm: regular rhythm GI Inspection: Yes normal to inspection Extrem General: Yes normal to inspection and No edema Assessment and Plan Assessment & Plan (1) GERD (gastroesophageal reflux disease): Code(s): K21.9 - Gastro-esophageal reflux disease without esophagitis Qualifiers: Esophagitis presence: esophagitis presence not specified Qualified Code(s): K21.9 - Gastro-esophageal reflux disease without esophagitis Plan: Avoid the foods that causes that usually spicy foods, tomato products, juices, coffee, soda and foods that your sensitive to. After eating do not lie down, allow 3-4 hours before in lie down. And keep the head of bed above 30 degrees to avoid the acid from going up. (2) Hypercholesterolemia: Code(s): E78.00 - Pure hypercholesterolemia, unspecified Plan: Avoid fried foods, chicken skin, eggs, butter margarine, pastries and meat. Be it pork or beef they have a lot of cholesterol LDL goal of less than 130 and triglyceride of less than 150 (3) Generalized anxiety disorder: Code(s): F41.1 - Generalized anxiety disorder Plan: Continue with anxiety medication (4) Colon cancer screening: Code(s): Z12.11 - Encounter for screening for malignant neoplasm of colon Plan: Patient is reminded about colonoscopy (5) Hypomagnesemia: Code(s): E83.42 - Hypomagnesemia (6) Hypokalemia: Code(s): E87.6 - Hypokalemia (7) Colonoscopy refused: Code(s): Z53.20 - Procedure and treatment not carried out because of patient's decision for unspecified reasons Orders: Orders Comprehensive Met. Panel Today E87.6 - Hypokalemia Magnesium Today E87.6 - Hypokalemia Phosphorus Today E87.6 - Hypokalemia Medications: Refilled clonazepam 1 mg PO DAILY 30 days PRN 30 tabs 0RF anxiety F32.9 - Major depressive disorder, single episode, unspecified, F41.9 - Anxiety disorder, unspecified tramadol 50 mg PO BID PRN 56 tabs 0RF pain E78.00 - Pure hypercholesterolemia, unspecified Discontinued calcium carbonate Discontinued Reason: Ancillary Entered New Order 500 mg PO DAILY 30 tabs 0RF magnesium oxide Discontinued Reason: Doctor's Order 500 mg PO DAILY 30 caps 0RF Coding Level of Care Code Est Pt Level 4 (61153) Diagnoses GERD (gastroesophageal reflux disease) K21.9 Esophagitis presence: esophagitis presence not specified Hypercholesterolemia E78.00 Generalized anxiety disorder F41.1 Colon cancer screening Z12.11 Hypomagnesemia E83.42 Hypokalemia E87.6 Colonoscopy refused Z53.20
[2023-02-16 09:42] VITALS: BP 138/72; PULSE 82; O2SAT 97; BMI 24.3
== END 2023-02-16 10:19 | disposition home or self-care (01) ==
PROVIDERS: PCP Internal Medicine; Visit Provider Internal Medicine
DX: K21.9 Gastro-esophageal reflux disease without esophagitis (principal); E78.00 Pure hypercholesterolemia, unspecified; E83.42 Hypomagnesemia; F41.1 Generalized anxiety disorder; E87.6 Hypokalemia
CPT/HCPCS: 99214

== ENCOUNTER 2023-02-25 05:20 | Emergency (ER) | payer OTHER, SELFPAY ==
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
[2023-02-25 07:47] VITALS: BP 177/113; PULSE 87; RESP 16; TEMP 36.2; O2SAT 97; BMI 24.1
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
[2023-02-25 09:48] VITALS: BP 201/117; PULSE 84; RESP 16; TEMP 36.7; O2SAT 96
[2023-02-25 10:42] VITALS: BP 212/122; PULSE 83; RESP 16; TEMP 36.6; O2SAT 99
[2023-02-25 11:02] LABS: MANUAL DIFF FLAG NO
[2023-02-25 11:05] LABS: Basophils Absolute Auto 0.1 X10*3/uL (0.0-0.2); Basophils Percent Auto 1.2 % (0-2); Eosinophils Absolute Auto 0.2 X10*3/uL (0.0-0.4); Eosinophils Percent Auto 2.6 % (0-4); Hematocrit 33.8 % (42.0-52.0); Hemoglobin 12.6 g/dl (14.0-18.0); Imm Gran Abs Auto 0.02 X10*3/uL (0.00-0.03); Imm Gran Pct Auto 0.3 % (0.0-0.4); Lymphocytes Absolute Auto 2.2 X10*3/uL (1.2-4.9); Lymphocytes Percent Auto 29.8 % (20-40); Mean Corpuscular HGB Conc 37.3 g/dl (31.0-36.0); Mean Corpuscular Hemoglobin 33.8 pg (27.0-33.0); Mean Corpuscular Volume 90.6 fL (80.0-98.0); Mean Platelet Volume 8.9 fL (9.4-12.4); Monocytes Absolute Auto 0.5 X10*3/uL (0.1-1.2); Monocytes Percent Auto 6.9 % (2-11); NRBC Pct Auto 0.3 /100WBC (0.0-0.2); Neutrophils Absolute Auto 4.3 x10*3/uL (2.0-8.3); Neutrophils Percent Auto 59.2 % (45-73); Platelet Count 363 X10*3/uL (160-400); Red Blood Count 3.73 X10*6/uL (4.60-5.80); White Blood Count 7.3 X10*3/uL (4.8-10.8)
[2023-02-25 11:21] LABS: Prothrombin Time 11.8 SEC (11.1-13.3)
[2023-02-25 11:23] LABS: Partial Thromboplastin Time 29.6 SEC (26.0-36.4)
[2023-02-25 11:28] LABS: Alanine Aminotransferase 30 U/L (0-40); Albumin Level 4.2 g/dL (3.5-5.0); Alkaline Phosphatase 122 U/L (39-117); Anion Gap 13 (12-20); Aspartate Amino Transferase 53 U/L (5-37); Bilirubin Direct 0.2 mg/dL (0.0-0.5); Bilirubin Total 0.6 mg/dL (0.0-1.0); Blood Urea Nitrogen 11 mg/dL (9-16); Calcium 9.1 mg/dL (8.4-10.2); Carbon Dioxide 28 mmol/L (22-29); Chloride 101 mmol/L (96-108); Estimated Glomerular Filt Rate > 60; Glucose Random 103 mg/dL (60-115); Magnesium 1.1 mg/dL (1.6-2.6); Potassium 3.2 mmol/L (3.3-5.1); Sodium 139 mmol/L (135-145); Total Protein 7.6 g/dL (6.5-8.0)
[2023-02-25] MEDS: iohexoL 350 MG/ML 100 ML INFUS..BTL IV (12:06)
[2023-02-25] MEDS: HYDROcodone Bit/Acetam 5/325 TABLET 1 TAB PO (12:21)
[2023-02-25] MEDS: amLODIPine Besylate 10 MG TABLET PO (12:21)
[2023-02-25] MEDS: Magnesium Sulfate/H2O 2 GM/50 ML PIGGYBACK IV (12:22)
[2023-02-25 12:56] VITALS: BP 185/106; PULSE 93; RESP 16; TEMP 36.3; O2SAT 99
[2023-02-25] MEDS: LORazepam 2 MG/ML VIAL IVPUSH (14:03)
[2023-02-25 14:16] VITALS: BP 176/112; PULSE 95; RESP 16; TEMP 36.5; O2SAT 98
--- NOTE | 2023-02-25 14:42 | PC.NURSE ---
report given to lane delgado rn at [facility]
[2023-02-25 15:12] LABS: Troponin-I High Sensitivity < 2.7 ng/L (<3.5-35.0)
--- NOTE | 2023-02-25 15:18 | PC.NURSE ---
PT TX TO [facility] CALM, COOP, NO RESPIR DISTRESS, NO PAIN VISUALIZED/REPORTED TO RN.
== END 2023-02-25 14:45 | disposition short-term general hospital (02) ==
PROVIDERS: Physician Assistant; Emergency Provider Emergency Medicine; PCP Internal Medicine
DX: S22.21XA Fracture of manubrium, initial encounter for closed fracture (principal); M54.2 Cervicalgia; M25.532 Pain in left wrist; M25.551 Pain in right hip; M25.562 Pain in left knee; V43.52XA Car driver injured in collision with other type car in traffic accident, initial encounter; Y93.9 Activity, unspecified; Y92.410 Unspecified street and highway as the place of occurrence of the external cause; Y99.9 Unspecified external cause status; Z87.891 Personal history of nicotine dependence; Z79.899 Other long term (current) drug therapy; M54.6 Pain in thoracic spine
CPT/HCPCS: 36415; 71250; 71275; 80048; 80076; 83735; 84484; 85025; 85610; 85730; 86850; 86900; 86901; 96374; 96375; 99285; J2060; J3475; Q9967

== ENCOUNTER 2023-05-20 10:52 | Outpatient (AMB) | payer MEDICARE, MEDICAID, SELFPAY ==
--- OUTSIDE RECORDS SUMMARY | 2023-05-20 10:52 | XMS_ITS | Continuity of Care Document ---
Author Name Unknown Organization [facility] Address [address] [place] [address] [address] [place] [address]- Care Team Providers Care Hoop Maker Machine Name Role Phone Arnoldo Stanley MD Primary Care Physician [phone] Encounter [facility] ACCT R [id number] Date(s): 03/24/23 - 04/30/[address] [place] [address]- Attending Physician: Uche Ojeda MD Allergies, Adverse Reactions, Alerts No Known Allergies Immunizations Given and Recorded Vaccine Date Status Refusal Reason pneumococcal 23-valent vaccine 04/11/17 Given Medications clonazePAM 0.5 mg oral tablet = 0.5 mg, By Mouth, 2 times a day, PRN Anxiety, 0 Refills, Maintenance, 04/16/17 7:21:30, Tablet Start Date: 04/16/17 Status: Ordered clonazePAM 1 mg oral tablet = 1 mg, By Mouth, Daily at bedtime, PRN Anxiety Sleep, 0 Refills, Maintenance, 04/16/17 7:21:32, Tablet Start Date: 04/16/17 Status: Ordered omeprazole 20 mg oral delayed release tablet 2 tablet = 40 mg, By Mouth, Daily, # 120 tablet, 0 Refills, Maintenance, 11/29/16 21:14:18, EC Tablet Start Date: 11/29/16 Status: Ordered traMADol 50 mg oral tablet = 50 mg, By Mouth, 3 times a day, 0 Refills, Maintenance, 04/16/17 7:21:50, Tablet Start Date: 04/16/17 Status: Ordered Zoloft 100 mg oral tablet = 100 mg, By Mouth, Daily, # 30 tablet, 1 Refills, Maintenance, 04/16/17 7:21:41, Tablet Start Date: 04/16/17 Status: Ordered Patient Care team information Care Team Personnel Name: Mica Perez RN Position: [facility] Ambulatory (view) Member Role: Primary Care Nurse Name: Arnoldo Stanley MD Position: Reference Physician Member Role: PCP Address: Address: [address] [place] [address] [place] [address]- Name: Hodan Newberry RN Position: [facility] Hospital Creative Art Director Member Role: Primary Care Nurse Care Team Related Persons Name: DOUG HENSON Address: [address] [address]
--- OUTSIDE RECORDS SUMMARY | 2023-05-20 10:52 | XMS_ITS | Continuity of Care Document ---
Author Name Unknown Organization [facility] Address [address] [place] [address] [address] [place] [address]- Care Team Providers Care Rat Poisoner Name Role Phone Arnoldo Stanley MD Primary Care Physician [phone] En[place] [facility] [place] [place] [id number] Date(s): 03/31/23 - 04/30/[address] [place], [place] [address] Attending Physician: Dayanna Rust Admitting Physician: Admtr, Dayanna Referring Physician: Admtr, Ar8 Allergies, Adverse Reactions, Alerts No Known Allergies [...] Team Personnel Name: Mica Perez RN Position: [facility] Ambulatory (view) Member Role: Primary Care Nurse Name: Arnoldo Stanley MD Position: Reference Physician Member Role: PCP Address: Address: [address] [place] [address] [place] [address]- Name: Hodan Newberry RN Position: [facility] Hospital Technician Trainee Member Role: Primary Care Nurse Care Team Related Persons Name: DOUG HENSON Address: home [address] [place] [address] [address]
--- OUTSIDE RECORDS SUMMARY | 2023-05-20 10:52 | XMS_ITS | Continuity of Care Document ---
Author Name Unknown Organization [facility] Address [address] [place] [address] [address] [place] [address]- Care Team Providers Care Dry Cleaner Helper Name Role Phone Arnoldo Stanley MD Primary Care Physician Encounter [facility] Date(s): 03/11/23 - 03/18/[address] [place], [place] [address] Attending Physician: Nicola Redmond DO Allergies, Adverse Reactions, Alerts No Known Allergies [...] 7:21:41, Tablet Start Date: 04/16/17 Status: Ordered Vital Signs Most recent to oldest [Reference Range]: 1 Height 157.48 cm (03/11/23 10:19 AM) Weight 60.5 kg (03/11/23 10:19 AM) Oxygen Saturation [94-100 %] 97 % (03/11/23 10:19 AM) Pulse Rate [55-90 bpm] 92 bpm *H* (03/11/23 10:19 AM) Body Mass Index [18.5-24.99 kg/m2] 24.4 kg/m2 (03/11/23 10:19 AM) Blood Pressure [90-138/55-84 mm Hg] 170/ 111mm Hg *H* (03/11/23 10:19 AM) Temperature [96.8-100.4 DegF] 96.9 DegF (03/11/23 10:19 AM) Mode of Delivery (Oxygen) Room air (03/11/23 10:19 AM) Blood pressure sites Arm, left (03/11/23 10:19 AM) Temperature Route Temporal (03/11/23 10:19 AM) Weight Obtained Via Standing scale (03/11/23 10:19 AM) Patient Care team information Care Team Personnel Name: Mica Perez RN Position: [facility] Ambulatory (view) Member Role: Primary Care Nurse Name: Jaden WALKER, Arnoldo Freire Position: Reference Physician Member Role: PCP Address: Address: [address] [place] [address] [place] [address]- Name: Hodan Newberry RN Position: [facility] Hospital Business Process Representative Member Role: Primary Care Nurse Care Team Related Persons Name: DAMION HENSONDIA Address: home [address] [place] [id number]
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
[2023-05-20 10:53] VITALS: BP 162/82; PULSE 81; O2SAT 98; BMI 25.4
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
--- OUTSIDE RECORDS SUMMARY | 2023-05-20 10:53 | XMS_ITS | Continuity of Care Document ---
Author Name Unknown Organization [facility] Address [address] [place] [address] [address] [place] [address]- Care Team Providers Care Custom Furrier Name Role Phone Arnoldo Stanley MD Primary Care Physician [phone] Encounter [facility] R [id number] Date(s): 03/04/23 - 04/03/[address] [place], [place] [address] Allergies, Adverse Reactions, Alerts No Known Allergies [...] Team Personnel Name: Mica Perez RN Position: [facility] Ambulatory (view) Member Role: Primary Care Nurse Name: Jaden WALKER, Arnoldo Freire Position: Reference Physician Member Role: PCP Address: Address: [address] [place] [address] [place] [address]- Name: Rohith JOVEL, Hodan [place] Position: [facility] Hospital Bus Driver Supervisor Member Role: Primary Care Nurse Care Team Related Persons Name: DOUG HENSON Address: home [address] [place] [id number]
== END 2023-05-20 12:12 | disposition home or self-care (01) ==
PROVIDERS: PCP Internal Medicine; Visit Provider Internal Medicine
DX: E83.42 Hypomagnesemia (principal); D64.9 Anemia, unspecified; E78.00 Pure hypercholesterolemia, unspecified; K21.9 Gastro-esophageal reflux disease without esophagitis; F41.1 Generalized anxiety disorder; I10 Essential (primary) hypertension
CPT/HCPCS: 99214

== ENCOUNTER 2023-09-14 13:44 | Outpatient (REF) | payer MEDICARE, MEDICAID, SELFPAY ==
[2023-09-14 13:59] LABS: MANUAL DIFF FLAG NO
[2023-09-14 14:36] LABS: Basophils Absolute Auto 0.1 X10*3/uL (0.0-0.2); Eosinophils Absolute Auto 0.2 X10*3/uL (0.0-0.4); Eosinophils Percent Auto 2.1 % (0-4); Hematocrit 35.9 % (42.0-52.0); Hemoglobin 12.8 g/dl (14.0-18.0); Imm Gran Abs Auto 0.05 X10*3/uL (0.00-0.03); Imm Gran Pct Auto 0.6 % (0.0-0.4); Immature Retic Fraction 24.1 % (2.3-13.4); Lymphocytes Percent Auto 34.2 % (20-40); Mean Corpuscular HGB Conc 35.7 g/dl (31.0-36.0); Mean Corpuscular Hemoglobin 33.9 pg (27.0-33.0); Mean Platelet Volume 9.8 fL (9.4-12.4); Monocytes Percent Auto 11.7 % (2-11); Neutrophils Absolute Auto 4.5 x10*3/uL (2.0-8.3); Neutrophils Percent Auto 50.4 % (45-73); Platelet Count 324 X10*3/uL (160-400); Red Blood Count 3.78 X10*6/uL (4.60-5.80); Red Cell Distribution Width 14.5 % (11.0-16.0); Reticulocyte Percent 4.8 % (0.5-1.8); Reticulocytes Absolute 0.181 X10*6/uL (0.026-0.095); White Blood Count 8.9 X10*3/uL (4.8-10.8)
[2023-09-14 15:22] LABS: Ferritin 121 ng/mL (20-250); Free T4 (Free Thyroxine) 0.75 ng/dL (0.71-1.85); Thyroid Stimulating Hormone 0.36 uIU/mL (0.32-4.0)
[2023-09-14 15:26] LABS: Alanine Aminotransferase 36 U/L (0-40); Albumin Level 3.9 g/dL (3.5-5.0); Alkaline Phosphatase 108 U/L (39-117); Anion Gap 14 (12-20); Aspartate Amino Transferase 62 U/L (5-37); Bilirubin Total 0.4 mg/dL (0.0-1.0); Blood Urea Nitrogen 11 mg/dL (9-16); Calcium 8.2 mg/dL (8.4-10.2); Carbon Dioxide 28 mmol/L (22-29); Chloride 105 mmol/L (96-108); Cholesterol 183 mg/dL (<200); Estimated Glomerular Filt Rate > 60; Glucose Random 109 mg/dL (60-115); HDL Cholesterol 46 mg/dL (>40); Iron 182 mcg/dL (45-160); Magnesium 0.9 mg/dL (1.6-2.6); Percent Iron Saturation 65 % (15-50); Sodium 144 mmol/L (135-145); Total Iron Binding Capacity 282 mcg/dL (228-428); Triglycerides 431 mg/dL (<150); Unsaturated Iron Binding 100 ug/dL
[2023-09-14 15:41] LABS: Folate 4.5 ng/mL (> or = 4.0); Prostate Specific Antigen Scr 1.75 ng/mL (<0.05-4.0)
[2023-09-14 19:47] LABS: Vitamin B12 335 pg/mL (200-900)
== END 2023-09-14 13:45 | disposition home or self-care (01) ==
LOC: HO.LAB 13:44
PROVIDERS: PCP Internal Medicine; Visit Provider Internal Medicine
DX: Z12.5 Encounter for screening for malignant neoplasm of prostate (principal); E87.6 Hypokalemia; E78.00 Pure hypercholesterolemia, unspecified; D64.9 Anemia, unspecified
CPT/HCPCS: 36415; 80053; 80061; 82607; 82728; 82746; 83540; 83735; 84100; 84153; 84439; 84443; 85025; 85045

== ENCOUNTER 2023-09-14 14:09 | Outpatient (AMB) | payer MEDICARE, MEDICAID, SELFPAY ==
[2023-09-14 14:17] VITALS: BP 138/76; PULSE 80; O2SAT 99; BMI 24.7
--- NOTE | 2023-09-14 14:17 | A.OFFPC_ITS ---
Vital Signs 09/14/23 14:17 Height 5 ft 2 in Weight 135 lb BMI 24.7 BP 138/76 Blood Pressure Location Lt brachial Position Sitting Pulse 80 Pulse Source Pulse Oximeter Pulse Oximetry (%) 99 Oxygen Delivery Method Room Air Intake Visit Reasons: FOLLOW UP Intake Note: Patient is here to follow up on follow up Clinic Assistant Required: No Allergies povidone-iodine Allergy (Verified 09/14/23 14:23) Rash Tobacco use date assessed: 09/14/23 Dental Screening Dental Screen Date: 09/14/23 HPI FOLLOW UP HPI Details 58-year-old male with a history of anemi a hypercholesterolemia GERD generalized anxiety disorder and hypertension last seen in April 2023. [facility] Medical History (Updated 09/14/23 @ 14:48 by Gillian Dupree MD) Anxiety and depression Blood pressure elevated without history of HTN Hypomagnesemia Colon cancer screening declined Hypertriglyceridemia Hypercholesterolemia Avascular necrosis of bone of left hip Insomnia Polysubstance abuse Alcohol abuse History of pancreatitis GERD (gastroesophageal reflux disease) Surgical History History of drainage of abscess H/O total hip arthroplasty Family History (Updated 02/16/23 @ 09:40 by DENISE Cochran) Father CAD (coronary artery disease) S/P CABG x 2 Mother Hypertension Osteoarthritis Brother Alive and well Sister Deaf Maternal Grandmother Cancer Maternal Grandfather Dementia Family/Other Alzheimers disease Social History Housing: Apartment Alcohol intake: current Alcohol intake frequency: 0-2 drinks per day Alcohol type: hard liquor Patient Tobacco Use Status: Former Tobacco user Tobacco use type: Cigarette Years Smoked: 2010 quit e-Cigarette/Vaping Use: Never Used Second Hand Smoke Exposure: No Current occupational status: disabled and other Current occupation: right handed. Cognitive needs: No Hearing needs: No Vision needs: No Questionnaire Thrive Questionnaire Date Thrive assessed: 09/14/23 I am a: Patient What is your living situation today?: I have a steady place to live Within the past 12 months, did the food you bought not last and you didn't have the money to get more?: Never true Within the past 12 months, did you worry whether your food would run out before you got money to buy more?: Never true Do you have trouble paying for medicines?: No Do you have trouble getting transportation to medical appointments?: No Do you have trouble paying your heating and electricity bill?: No Do you have trouble taking care of your child, family member or friend?: No Do you have trouble with day-to-day activities such as bathing, preparing meals, shopping, managing finances, etc.?: No Are you currently unemployed and looking for a job?: No Are you interested in more education?: No Please select the resources that you would like help with: None Currently or been in a relationship where the following occur: no concerns reported THRIVE Score: 0 AUDIT C Alcohol Use Questionnaire (AUDIT-C) 1. How often do you have a drink containing alcohol?: 2-4 times a month 2. How many drinks containing alcohol do you have on a typical day when you are drinking?: 3 or 4 3. How often do you have six or more drinks on one occasion?: Never Total Score: 3 Score Reviewed/Action Taken: Yes (education provided on health risks associated with alcohol use. ) PRADIP-7 AMB Questionnaire PRADIP-7 Date PRADIP - 7 assessed: 09/14/23 Source: Developed by Drs. Andrae Del Rio, Jennifer Ahmadi, Zeferino Villarreal and colleagues, with an educational mdeardo from [employer]. Physical exam (Primary Care) Vital Signs: Last Vital Signs Pulse 80 09/14/23 14:17 BP 138/76 09/14/23 14:17 Pulse Ox 99 09/14/23 14:17 Oxygen Delivery Method Room Air 09/14/23 14:17 BMI result Body Mass Index 24.7 Tobacco/Smoking Status: Tobacco use Status Tobacco use date assessed 09/14/23 09/14/23 14:20 Patient Tobacco Use Status Former Tobacco user 09/14/23 14:20 Tobacco use type Cigarette 09/14/23 14:20 e-Cigarette/Vaping Use Never Used 09/14/23 14:20 Thrive Assessment: Date of Thrive Assessment Date Thrive assessed 09/14/23 09/14/23 14:20 Currently or been in a relationship where the following occur: no concerns reported Const General: alert; No acute distress Eyes Conjunctivae: conjunctivae normal Resp Auscultation: clear to auscultation bilaterally Cardio Rate: regular rate Rhythm: regular rhythm GI Inspection: Yes normal to inspection Extrem General: Yes normal to inspection and No edema Assessment and Plan Assessment & Plan (1) Hypertension: Code(s): I10 - Essential (primary) hypertension Plan: Patient is presently on lisinopril 5 mg once a day (2) Anemia: Code(s): D64.9 - Anemia, unspecified Plan: Workup pending blood work (3) Generalized anxiety disorder: Comment: decline counselling referral Code(s): F41.1 - Generalized anxiety disorder Plan: Continue with present medication as needed (4) Colon cancer screening: Code(s): Z12.11 - Encounter for screening for malignant neoplasm of colon Plan: Patient is reminded about colonoscopy. colonoscopy decline , ok with cologuard (5) Hypercholesterolemia: Code(s): E78.00 - Pure hypercholesterolemia, unspecified Plan: Avoid fried foods, chicken skin, eggs, butter margarine, pastries and meat. Be it pork or beef they have a lot of cholesterol LDL goal of less than 130 and triglyceride of less than 150. (6) GERD (gastroesophageal reflux disease): Code(s): K21.9 - Gastro-esophageal reflux disease without esophagitis Qualifiers: Esophagitis presence: esophagitis presence not specified Qualified Code(s): K21.9 - Gastro-esophageal reflux disease without esophagitis Plan: Avoid the foods that causes that usually spicy foods, tomato products, juices, coffee, soda and foods that your sensitive to. After eating do not lie down, allow 3-4 hours before in lie down. And keep the head of bed above 30 degrees to avoid the acid from going up. (7) Alcohol abuse: Code(s): F10.10 - Alcohol abuse, uncomplicated Plan: Patient is aware of the damage that the alcohol can do but is hesitant with abstaining. Orders: Referrals Cologuard Test Z12.11 - Encounter for screening for malignant neoplasm of colon, Z12.12 - Encounter for screening for malignant neoplasm of rectum Coding Level of Care Code Est Pt Level 4 (11200) Diagnoses Hypertension I10 Anemia D64.9 Generalized anxiety disorder F41.1 Colon cancer screening Z12.11 Hypercholesterolemia E78.00 Gastroesophageal reflux disease, unspecified whether esophagitis present K21.9 Esophagitis presence: esophagitis presence not specified Alcohol abuse F10.10
== END 2023-09-14 14:55 | disposition home or self-care (01) ==
PROVIDERS: PCP Internal Medicine; Visit Provider Internal Medicine
DX: I10 Essential (primary) hypertension (principal); D64.9 Anemia, unspecified; F41.1 Generalized anxiety disorder; Z12.11 Encounter for screening for malignant neoplasm of colon; E78.00 Pure hypercholesterolemia, unspecified; K21.9 Gastro-esophageal reflux disease without esophagitis; F10.10 Alcohol abuse, uncomplicated
CPT/HCPCS: 99214

== ENCOUNTER 2024-04-19 09:35 | Emergency (ER) | payer OTHER, MEDICARE, MEDICAID, SELFPAY ==
[2024-04-19 09:51] VITALS: BP 166/107; PULSE 89; RESP 16; TEMP 37; O2SAT 97; BMI 22.6
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
[2024-04-19 11:31] VITALS: BP 160/120
[2024-04-19] MEDS: lisinopriL 5 MG TABLET PO (11:31)
[2024-04-19 11:35] VITALS: BP 160/120; PULSE 83; RESP 18; TEMP 36.7; O2SAT 98
--- NOTE | 2024-04-19 11:53 | PC.NURSE ---
PT wanted to leave AMA, pt aware that BP was high stated that he didn't take his BP meds today at home yet, pt medicated per mar and still wishes to leave AMA. PT verbalizes understanding of risks leaving AMA. AMA form signed, witness and PA signatures provided.
[2024-04-19 12:06] VITALS: BP 160/120; PULSE 83; RESP 18; TEMP 36.7; O2SAT 98
[2024-04-19 12:27] LABS: Influenza A PCR NEGATIVE (Negative); Influenza B PCR NEGATIVE (Negative); Resp Syncy Virus RNA Qual PCR NEGATIVE (Negative); SARS COV2 PCR INHOUSE NEGATIVE (Negative)
== END 2024-04-19 11:58 | disposition left against medical advice (07) ==
PROVIDERS: Physician Assistant; Emergency Provider Emergency Medicine Emergency Medical Services; PCP Internal Medicine
DX: M79.10 Myalgia, unspecified site (principal); Z53.29 Procedure and treatment not carried out because of patient's decision for other reasons; Z79.899 Other long term (current) drug therapy; Z03.818 Encounter for observation for suspected exposure to other biological agents ruled out
CPT/HCPCS: 0241U; 99283; 99284

== ENCOUNTER → 2024-07-21 15:11 | Outpatient (BNVA) | payer MEDICARE, MEDICAID, OTHER, SELFPAY | PROVIDERS: PCP Internal Medicine; Visit Provider Internal Medicine | DX: D64.9 Anemia, unspecified (principal); E87.6 Hypokalemia; E78.00 Pure hypercholesterolemia, unspecified; K21.9 Gastro-esophageal reflux disease without esophagitis; F10.10 Alcohol abuse, uncomplicated; F41.1 Generalized anxiety disorder; L30.9 Dermatitis, unspecified; N52.9 Male erectile dysfunction, unspecified; I10 Essential (primary) hypertension | CPT/HCPCS: 99212 ==

== ENCOUNTER 2024-07-29 08:31 | Inpatient (IN) | payer MEDICARE, MEDICAID, SELFPAY ==
[2024-07-29] VITALS (10 sets, daily range): BP systolic 111–188; BP diastolic 75–116; PULSE 68–104; RESP 16–18; TEMP 36.2–37.1; O2SAT 95–99; BMI 21.3
--- NOTE | ~2024-07-29 | CT_ITS ---
CLINICAL HISTORY: L sided abd pain CT abdomen and pelvis with contrast Comparison: CT - CT ABDOMEN PELVIS W IV CON - 07/29/24 09:50 EST US - ABDOMEN ULTRASOUND [id number] - 03/28/17 07:[address]/CA/SR - ABD PELV W IV CON ONLY [id number] - 02/27/16 03:16 EDT Findings: No acute process evident in the lower chest. Liver, gallbladder, biliary tree, pancreas, spleen, adrenals and kidneys intact. No stones or hydronephrosis. Resolution of the changes of interstitial edematous pancreatitis on prior CT. Extensive melchor colitis most pronounced in the ascending through descending colon. Sigmoid and rectosigmoid involved although less pronounced. Changes appear to spare the cecum and terminal ileum. Normal appendix. May reflect extensive infectious or inflammatory colitis. Pattern and extent atypical for ischemic colitis, with absence of significant vascular disease. No bowel obstruction. Stomach decompressed with nonspecific accentuation of the gastric mucosa. Small bowel nondilated. Trace ascites. No free air. No pathologic adenopathy. Normal caliber abdominal aorta and major branch vessels. Patent hepatic veins, IVC and portal vein. Urinary bladder intact. Mildly enlarged prostate. Pelvis detail limited due to severe streak artifact from left hip arthroplasty. No acute or aggressive appearing bone lesion. Soft tissues intact. Impression: Severe nonspecific melchor colitis either infectious or inflammatory as detailed. No apparent obstruction. Trace ascites. No pneumatosis or free air. This document has been electronically signed by: Beto Magana MD on 07/29/2024 12:00:59
--- NOTE | 2024-07-29 08:43 | ED.GENADULT ---
HPI - General Adult General Chief complaint: Abdominal Pain Stated complaint: pancreatitis , unable to eat, sweats Time Seen by Provider: 07/29/24 08:40 Source: patient Mode of arrival: ambulatory Limitations: no limitations History of Present Illness ED Provider: XIOMY Jennings HPI narrative: This is a 59-year-old male history of hypomagnesemia, polysubstance abuse, pancreatitis, GERD, alcohol use disorder, anxiety, depression, insomnia, avascular necrosis, hyperlipidemia, hypertension presenting to the emergency department with mid abdominal pain, nausea, vomiting, diarrhea ongoing for the past 2 days he also reports he has not been able to eat or drink much, he reports this feels like his typical episode of pancreatitis. Pain does not radiate. He denies fevers, chills, chest pain, shortness of breath, headache, vision changes, dizziness, weakness. Related Data Home Medications ?Medication ?Instructions ?Recorded ?Confirmed thiamine HCl (vitamin B1) 100 mg 100 mg PO DAILY 04/26/20 05/20/23 tablet omeprazole 20 mg capsule,delayed 20 mg PO BID@0630,1630 11/13/22 05/20/23 release Previous Rx's ?Medication ?Instructions ?Recorded blood pressure monitor (Blood #1 ea 05/20/23 Pressure Kit) hydroxyzine HCl 50 mg tablet 50 mg PO BID #180 tabs 07/27/23 magnesium oxide 400 mg (241.3 mg 400 mg PO BID #20 tabs 09/14/23 magnesium) tablet (MagOx) potassium chloride 20 mEq 20 meq PO BID #20 tabs 09/14/23 tablet,extended release(part/cryst) (Klor-Con M) fluticasone propionate 50 1 spray intranasal DAILY #16 mL 11/07/23 mcg/actuation nasal spray,suspension gabapentin 300 mg capsule 300 mg PO BID #180 caps 11/08/23 acetaminophen 500 mg tablet 500 mg PO Q6H PRN fever or pain 04/19/24 (Tylenol Extra Strength) #14 tabs cyclobenzaprine 5 mg tablet 5 mg PO Q8H PRN pain (scale score 04/19/24 7-10) 5 days #14 tabs lidocaine 5 % topical patch 1 patch topical DAILY PRN pain #30 04/19/24 (Lidoderm) ea naproxen 500 mg tablet 500 mg PO BID PRN pain 10 days #20 04/19/24 tabs clonazepam 1 mg tablet 1 mg PO DAILY PRN anxiety 30 days 07/21/24 #30 tabs lisinopril 5 mg tablet 5 mg PO DAILY #30 tabs 07/21/24 sildenafil 50 mg tablet 50 mg PO DAILY PRN sexual activity 07/21/24 #5 tabs tramadol 50 mg tablet 50 mg PO BID PRN pain #60 tabs 07/21/24 triamcinolone acetonide 0.5 % 1 appl topical BID #30 grams 07/21/24 topical cream Allergies Allergy/AdvReac Type Severity Reaction Status Date / Time povidone-iodine Allergy Rash Verified 07/29/24 08:36 Review of Systems Review of Systems: Yes all other systems are reviewed and are negative PMFSH Past Medical History Attestation statement: The following information was validated with the patient. Source: old records reviewed and nursing notes reviewed Medical History Blood pressure elevated without history of HTN Hypomagnesemia Colon cancer screening declined Hypertriglyceridemia Hypercholesterolemia Avascular necrosis of bone of left hip Insomnia Polysubstance abuse Anxiety and depression Alcohol abuse History of pancreatitis GERD (gastroesophageal reflux disease) Surgical History History of drainage of abscess H/O total hip arthroplasty Family History Family History Father CAD (coronary artery disease) S/P CABG x 2 Mother Hypertension Osteoarthritis Brother Alive and well Sister Deaf Maternal Grandmother Cancer Maternal Grandfather Dementia Family/Other Alzheimers disease Social History Social History Housing: Apartment Unable to assess alcohol history related to: Unknown Alcohol intake: current Alcohol intake frequency: 3 or more drinks per day Alcohol type: beer and hard liquor Patient Tobacco Use Status: Former Tobacco user Tobacco use type: Cigarette Years Smoked: 2011 quit Smoked in Last 30 Days: No e-Cigarette/Vaping Use: Never Used Second Hand Smoke Exposure: Yes Use of substances other than those prescribed or required for medical reasons: No Advance Directives: No Advance Directives Information Provided: No service: No Current occupational status: disabled and other Current occupation: right handed. Cognitive needs: No Hearing needs: No Vision needs: No Physical Exam ED Vital Signs: Vital Signs - 24 hr 07/29/24 08:35 07/29/24 10:07 07/29/24 11:37 Temperature 97.9 F 98.3 F Pulse Rate 104 H 85 90 Respiratory Rate 18 16 18 Blood Pressure 139/100 H 188/110 H 177/116 H Pulse Oximetry 99 95 97 Oxygen Delivery Method Room Air Room Air Room Air 07/29/24 12:07 07/29/24 12:36 Temperature Pulse Rate 86 Respiratory Rate Blood Pressure 152/99 H 162/100 H Pulse Oximetry Oxygen Delivery Method BMI result Body Mass Index 21.3 vss Appearance: Alert.? Oriented X3.? No acute distress.? Head: Normocephalic, atraumatic, no step-offs or deformities Eyes: Pupils equal, round and reactive to light.? ENT: Pharynx normal.? Neck: Normal inspection.? Neck supple.? CVS: Normal heart rate and rhythm.? Pulses normal.? Respiratory: No respiratory distress.? Breath sounds normal.? Abdomen: Soft and mild tenderness on epigastric/left upper quadrant region..? Skin: Skin warm and dry.? Normal skin color.? Normal skin turgor.? Extremities: No lower extremity edema.? No calf ttp. 5/5 strength to bilateral upper and lower extremities Neuro: Oriented X 3.? No motor deficit.? No sensory deficit. CN 2-12 intact Course Reevaluation(s) Reevaluation #1: Patient's see with leukocytosis and left shift, I gave him ceftriaxone and Zosyn. Chemistry with low Mag IV Mag given. Normal lactic. Mild transaminase elevation nonspecific he has abdominal pain and abdominal imaging was ordered. CT abdomen and pelvis nonspecific melchor colitis either infectious or inflammatory he is still in significant discomfort however does not at morphine. Toradol was given. Patient to be admitted as he is not tolerating p.o.. Time: 12:57 Medications Administered Generic Name Dose Route Start Last Admin Trade Name Freq PRN Reason Stop Dose Admin Piperacillin Sod/Tazobactam 50 mls @ 100 mls/hr 07/29/24 12:28 07/29/24 12:37 Sod 3.375 gm/ Sodium Chloride IV 07/29/24 12:57 100 mls/hr ONCE ONE Administration Discontinued Medications Generic Name Dose Route Start Last Admin Trade Name Freq PRN Reason Stop Dose Admin Ceftriaxone Sodium 1 gm 07/29/24 09:24 07/29/24 09:46 Ceftriaxone Sodium 1 Gm Vial IVPUSH 07/29/24 09:25 1 gm ONCE ONE Administration Sodium Chloride 1,632.93 mls @ 1,632.93 mls/hr 07/29/24 09:24 07/29/24 11:22 Ns 30 ml/kg infuse over 1 hr (1632.93 ml) 07/29/24 10:23 Infused IV Infusion .Q1H STA Magnesium Sulfate 2 gm in 50 mls @ 25 mls/hr 07/29/24 09:24 07/29/24 12:40 Magnesium Sulfate/H2o IV 07/29/24 11:23 Infused ONCE ONE Infusion Iohexol 100 ml 07/29/24 10:14 07/29/24 10:15 Iohexol 350 Mg/Ml 100 Ml Infus..Btl IV 07/29/24 10:15 85 ml ONCE ONE Administration Ketorolac Tromethamine 30 mg 07/29/24 08:53 07/29/24 09:03 Ketorolac Tromethamine 15 Mg/Ml Vial IVPUSH 07/29/24 08:54 30 mg ONCE ONE Administration Lisinopril 5 mg 07/29/24 11:38 07/29/24 12:36 Lisinopril 5 Mg Tablet PO 07/29/24 11:39 5 mg ONCE ONE Administration Protocol Ondansetron HCl 4 mg 07/29/24 08:46 07/29/24 09:03 Ondansetron Hcl 4 Mg/2 Ml Vial IVPUSH 07/29/24 08:47 4 mg ONCE ONE Administration Medical Decision Making Medical Decision Making [facility] Narrative: 59-year-old male presents with abdominal pain, nausea, vomiting, diarrhea ongoing for the past 2 days history of pancreatitis and alcohol use disorder. Not tolerating p.o.. History and physical exam epigastric and left upper quadrant tenderness to palpation on exam. History and physical exam concerning for pancreatitis versus renal colic versus viral illness. Unlikely appendicitis, obstruction, abdominal aortic aneurysm, dissection, acute abdomen, renal stones. Plan labs, imaging, NPO Differential Diagnosis Differential Diagnoses: The differential diagnosis associated with the presentation includes (History and physical exam concerning for pancreatitis versus renal colic versus viral illness. Unlikely appendicitis, obstruction, abdominal aortic aneurysm, dissection, acute abdomen, renal stones.) Admission/Observation Consideration of admission/observation: Escalation of care including admission/observation considered Lab Data MDM Lab Attestation statement: I reviewed the patient's lab results. 07/29/24 08:52 07/29/24 08:52 Labs: Lab Results 07/29/24 07/29/24 07/29/24 Range/Units 08:52 09:42 11:35 WBC 14.9 H (4.8-10.8) X10*3/uL RBC 4.33 L (4.60-5.80) X10*6/uL Hgb 13.3 L (14.0-18.0) g/dl Hct 39.2 L (42.0-52.0) % MCV 90.5 (80.0-98.0) fL MCH 30.7 (27.0-33.0) pg MCHC 33.9 (31.0-36.0) g/dl RDW 15.1 (11.0-16.0) % Plt Count 550 H D (160-400) X10*3/uL MPV 8.9 L (9.4-12.4) fL Immature Gran % (Auto) 0.5 H (0.0-0.4) % Neut % (Auto) 80.6 H (45-73) % Lymph % (Auto) 12.3 L (20-40) % [place] % (Auto) 5.6 (2-11) % Eos % (Auto) 0.3 (0-4) % Baso % (Auto) 0.7 (0-2) % Lymph # (Auto) 1.8 (1.2-4.9) X10*3/uL [place] # (Auto) 0.8 (0.1-1.2) X10*3/uL Eos # (Auto) 0.1 (0.0-0.4) X10*3/uL Baso # (Auto) 0.1 (0.0-0.2) X10*3/uL Abs Immat Gran (auto) 0.07 H (0.00-0.03) X10*3/uL Absolute Neuts (auto) 12.0 H (2.0-8.3) x10*3/uL Absolute Nucleated RBC 0.000 (0.0-0.012) X10*3/uL Nucleated RBC % (auto) 0.0 (0.0-0.2) /100WBC Sodium 137 (135-145) mmol/L Potassium 3.4 (3.3-5.1) mmol/L Chloride 103 (96-108) mmol/L Carbon Dioxide 24 (22-29) mmol/L Anion Gap 13 (12-20) BUN 11 (9-16) mg/dL Creatinine 0.77 (0.5-1.4) mg/dL Estim Creat Clear Calc 80.5 Estimated GFR > 60 Random Glucose 168 H (60-115) mg/dL Lactic Acid 1.2 (0.5-2.0) mmol/L Calcium 8.9 D (8.4-10.2) mg/dL Magnesium 1.4 L* (1.6-2.6) mg/dL Total Bilirubin 0.9 (0.0-1.0) mg/dL AST 45 H (5-37) U/L ALT 42 H (0-40) U/L Alkaline Phosphatase 165 H (39-117) U/L Total Protein 7.5 (6.5-8.0) g/dL Albumin 3.9 (3.5-5.0) g/dL Lipase 19 (8-78) U/L Urine Color Yellow Urine Appearance Clear Urine pH 6.0 (5.0-9.0) Ur Specific [place] >= 1.030 H (1.005-1.025) Urine Protein Negative (Neg-Trace) mg/dL Urine Glucose (UA) Negative (Negative) mg/dL Urine Ketones Negative (Negative) mg/dL Urine Blood Negative (Negative) Urine Nitrite Negative (Negative) Ur Leukocyte Esterase Negative (Negative) Independent Interpretation I performed an independent interpretation of an: CT Scan Radiology Impression Discussion of test interpretation with radiology: I have reviewed the radiologist's reading. Critical Care Time Critical Care Time Critical Care Time: Yes Total Critical Care Time: 35 Attestation: I attest to this time spent taking care of the patient, obtaining history, physical, reviewing labs, imaging, treatment of patients condition +/- specialist/hospitalist consult Discharge Plan Discharge Clinical Impression: Colitis, Nausea & vomiting, Acute diarrhea Patient Disposition: Admitted as Observation Prescriptions: No Action hydroxyzine HCl 50 mg tablet 50 mg PO BID Qty: 180 2RF potassium chloride [Klor-Con M20] 20 mEq tablet,ER particles/crystals 20 meq PO BID Qty: 20 0RF magnesium oxide [MagOx] 400 mg (241.3 mg magnesium) tablet 400 mg PO BID Qty: 20 0RF fluticasone propionate 50 mcg/actuation spray,suspension 1 spray intranasal DAILY Qty: 16 5RF gabapentin 300 mg capsule 300 mg PO BID Qty: 180 2RF omeprazole 20 mg Capsule,Delayed Release(Dr/Ec) 20 mg PO BID@0630,1630 acetaminophen [Tylenol Extra Strength] 500 mg tablet 500 mg PO Q6H PRN (Reason: fever or pain) Qty: 14 0RF lidocaine [Lidoderm] 5 % adhesive patch,medicated 1 patch topical DAILY MDD remove after 12 hours PRN (Reason: pain) Qty: 30 0RF Rx Instructions: leave on most painful area for up to 12 hrs naproxen 500 mg tablet 500 mg PO BID PRN (Reason: pain) 10 Days Qty: 20 0RF cyclobenzaprine 5 mg tablet 5 mg PO Q8H PRN (Reason: pain (scale score 7-10)) 5 Days Qty: 14 0RF thiamine HCl (vitamin B1) 100 mg tablet 100 mg PO DAILY (DME) blood pressure monitor [Blood Pressure Kit] Kit See Rx Instructions .ROUTE .[facility] Qty: 1 0RF Rx Instructions: As directed lisinopril 5 mg tablet 5 mg PO DAILY Qty: 30 3RF clonazepam 1 mg tablet 1 mg PO DAILY PRN (Reason: anxiety) 30 Days Qty: 30 0RF tramadol 50 mg tablet 50 mg PO BID PRN (Reason: pain) Qty: 60 3RF triamcinolone acetonide 0.5 % cream 1 appl topical BID Qty: 30 0RF sildenafil 50 mg tablet 50 mg PO DAILY PRN (Reason: sexual activity) Qty: 5 0RF Rx Instructions: administer 30 minutes to 4 hours before activity Print Language: English
[2024-07-29 08:59] LABS: MANUAL DIFF FLAG NO
[2024-07-29 09:01] LABS: Basophils Absolute Auto 0.1 X10*3/uL (0.0-0.2); Basophils Percent Auto 0.7 % (0-2); Eosinophils Absolute Auto 0.1 X10*3/uL (0.0-0.4); Eosinophils Percent Auto 0.3 % (0-4); Hematocrit 39.2 % (42.0-52.0); Hemoglobin 13.3 g/dl (14.0-18.0); Imm Gran Abs Auto 0.07 X10*3/uL (0.00-0.03); Imm Gran Pct Auto 0.5 % (0.0-0.4); Lymphocytes Absolute Auto 1.8 X10*3/uL (1.2-4.9); Lymphocytes Percent Auto 12.3 % (20-40); Mean Corpuscular HGB Conc 33.9 g/dl (31.0-36.0); Mean Corpuscular Hemoglobin 30.7 pg (27.0-33.0); Mean Corpuscular Volume 90.5 fL (80.0-98.0); Mean Platelet Volume 8.9 fL (9.4-12.4); Monocytes Absolute Auto 0.8 X10*3/uL (0.1-1.2); Monocytes Percent Auto 5.6 % (2-11); Neutrophils Percent Auto 80.6 % (45-73); Platelet Count 550 X10*3/uL (160-400); Red Blood Count 4.33 X10*6/uL (4.60-5.80); Red Cell Distribution Width 15.1 % (11.0-16.0); White Blood Count 14.9 X10*3/uL (4.8-10.8)
[2024-07-29] MEDS: Ketorolac Tromethamine 15 MG/ML VIAL 30 MG IVPUSH (09:03)
[2024-07-29] MEDS: ondansetron HCL 4 MG/2 ML VIAL IVPUSH (09:03)
[2024-07-29 09:24] LABS: Alanine Aminotransferase 42 U/L (0-40); Albumin Level 3.9 g/dL (3.5-5.0); Alkaline Phosphatase 165 U/L (39-117); Anion Gap 13 (12-20); Aspartate Amino Transferase 45 U/L (5-37); Bilirubin Total 0.9 mg/dL (0.0-1.0); Blood Urea Nitrogen 11 mg/dL (9-16); Calcium 8.9 mg/dL (8.4-10.2); Carbon Dioxide 24 mmol/L (22-29); Chloride 103 mmol/L (96-108); Creatinine Clr Calc Pharmacy 80.5; Estimated Glomerular Filt Rate > 60; Glucose Random 168 mg/dL (60-115); Lipase 19 U/L (8-78); Magnesium 1.4 mg/dL (1.6-2.6); Potassium 3.4 mmol/L (3.3-5.1); Sodium 137 mmol/L (135-145); Total Protein 7.5 g/dL (6.5-8.0)
[2024-07-29] MEDS: cefTRIAXone sodium 1 GM VIAL IVPUSH (09:46)
[2024-07-29] MEDS: 0.9 % Sodium Chloride 1,632.93 ML 1632.93 ML IV (09:46)
[2024-07-29 10:04] LABS: Lactic Acid 1.2 mmol/L (0.5-2.0)
[2024-07-29] MEDS: Magnesium Sulfate/H2O 2 GM/50 ML PIGGYBACK IV (10:13)
[2024-07-29] MEDS: iohexoL 350 MG/ML 100 ML INFUS..BTL IV (10:15)
[2024-07-29 11:52] LABS: Appearance Urine Clear; Color Urine Yellow; Glucose Urine UA Negative (Negative); Leukocyte Esterase Urine Negative (Negative); Nitrite Urine Negative (Negative); Specific Gravity - Urine >= 1.030 (1.005-1.025); Urine Blood Negative (Negative); Urine Ketones Negative (Negative); Urine Protein Negative (Neg-Trace)
[2024-07-29] MEDS: lisinopriL 5 MG TABLET PO (12:36)
[2024-07-29] MEDS: Piperacillin Sodium/Tazobactam 3.375 GM in 0.9 % Sodium Chloride 50 ML IV (12:37)
--- NOTE | 2024-07-29 13:16 | P.HPHOSP_ITS ---
History of Present Illness Date of Service: 07/29/24 Chief Complaint: abdominal pain, Colitis A 59 years old male with PMH of ED, Anxiety, Alcohol abuse, GERD, HLD among others presenting to the hospital with abdominal pain and N\V\D with decrease PO intake for the last 2 days. The patient reports 2 days of ongoing mid abdominal pain, nausea, vomiting, diarrhea and being unable to tolerate any PO or keep it down. No reported fever but had chills. No chest pain, palpitations, SOB, or urinary symptoms. He continues to drink alcohol with last drink In ED noted to have Leukocytosis, transaminitis and hypomagnesemia with CT scan showing evidence of Severe nonspecific melchor colitis either infectious or inflammatory. Started on IV fluids and IV antibiotics and admitted for further work up and management. Review of Systems 2 Review of Systems: No fever, chills No chest pain, palpitation No shortness of breath or coughing reporting abdominal pain, nausea or vomiting No urinary symptoms No any rash or wounds PMFSH Medical History Blood pressure elevated without history of HTN Hypomagnesemia Colon cancer screening declined Hypertriglyceridemia Hypercholesterolemia Avascular necrosis of bone of left hip Insomnia Polysubstance abuse Anxiety and depression Alcohol abuse History of pancreatitis GERD (gastroesophageal reflux disease) Family History Father CAD (coronary artery disease) S/P CABG x 2 Mother Hypertension Osteoarthritis Brother Alive and well Sister Deaf Maternal Grandmother Cancer Maternal Grandfather Dementia Family/Other Alzheimers disease Surgical History History of drainage of abscess H/O total hip arthroplasty Social History Housing: Apartment Unable to assess alcohol history related to: Unknown Alcohol intake: current Alcohol intake frequency: 3 or more drinks per day Alcohol type: beer and hard liquor Patient Tobacco Use Status: Former Tobacco user Tobacco use type: Cigarette Years Smoked: 2011 quit Smoked in Last 30 Days: No e-Cigarette/Vaping Use: Never Used Second Hand Smoke Exposure: Yes Use of substances other than those prescribed or required for medical reasons: No Advance Directives: No Advance Directives Information Provided: No service: No Current occupational status: disabled and other Current occupation: right handed. Cognitive needs: No Hearing needs: No Vision needs: No Meds Allergies Allergy/AdvReac Type Severity Reaction Status Date / Time povidone-iodine Allergy Rash Verified 07/29/24 08:36 Home Medications ?Medication ?Instructions ?Recorded ?Confirmed ?Last Taken ?Type thiamine HCl (vitamin B1) 100 mg 100 mg PO DAILY 04/26/20 07/29/24 07/27/24 History tablet omeprazole 20 mg capsule,delayed 20 mg PO BID@0630,1630 11/13/22 07/29/24 07/27/24 History release clonazepam 1 mg tablet 1 mg PO DAILY anxiety 07/29/24 07/29/24 07/27/24 History magnesium oxide 400 mg (241.3 mg 400 mg PO DAILY 07/29/24 07/29/24 07/27/24 History magnesium) tablet (MagOx) potassium chloride 20 mEq 20 meq PO DAILY 07/29/24 07/29/24 07/27/24 History tablet,extended release(part/cryst) (Klor-Con M) Physical Exam 2 Vital Signs and Narrative: Vital Signs: Last Vital Signs Temp 98.3 F 07/29/24 10:07 Pulse 86 07/29/24 12:07 Resp 18 07/29/24 11:37 BP 162/100 H 07/29/24 12:36 Pulse Ox 97 07/29/24 11:37 O2 Del Method Room Air 07/29/24 11:37 BMI result Body Mass Index 21.3 Const: Other: Constitutional : Awake, interactive, not in distress Neck : Normal inspection, Supple Cardiovascular : RRR, no JVP, no lower extremity edema Respiratory : good bilateral air entry, no crackles, wheezes or rhonchi Gastrointestinal: soft, lax, decreased bowel sounds, generalized tenderness with no rebound or surgical signs Skin : Warm, Dry Neurological : Alert & oriented x3, No focal deficit Results Labs 07/29/24 08:52 07/29/24 08:52 Labs: Laboratory Results - last 24 hr 07/29/24 07/29/24 07/29/24 08:52 09:42 11:35 MCV 90.5 MCH 30.7 MCHC 33.9 RDW 15.1 Plt Count 550 H D MPV 8.9 L Immature Gran % (Auto) 0.5 H Neut % (Auto) 80.6 H Lymph % (Auto) 12.3 L [place] % (Auto) 5.6 Eos % (Auto) 0.3 Baso % (Auto) 0.7 Lymph # (Auto) 1.8 [place] # (Auto) 0.8 Eos # (Auto) 0.1 Baso # (Auto) 0.1 Abs Immat Gran (auto) 0.07 H Absolute Neuts (auto) 12.0 H Absolute Nucleated RBC 0.000 Nucleated RBC % (auto) 0.0 Anion Gap 13 Estim Creat Clear Calc 80.5 Estimated GFR > 60 Random Glucose 168 H Lactic Acid 1.2 Calcium 8.9 D Magnesium 1.4 L* Total Bilirubin 0.9 AST 45 H ALT 42 H Alkaline Phosphatase 165 H Total Protein 7.5 Albumin 3.9 Lipase 19 Urine Color Yellow Urine Appearance Clear Urine pH 6.0 Ur Specific [place] >= 1.030 H Urine Protein Negative Urine Glucose (UA) Negative Urine Ketones Negative Urine Blood Negative Urine Nitrite Negative Ur Leukocyte Esterase Negative Assessment and Plan (1) Acute diarrhea: Status: Acute (2) Nausea & vomiting: Status: Acute (3) Colitis: Status: Acute Plan A 59 years old male with PMH of ED, Anxiety, Alcohol abuse, GERD, HLD among others presenting to the hospital with abdominal pain and N\V\D with decrease PO intake for the last 2 days. Acute Pancolitis Could be infectious vs inflammatory, no terminal ileum or Cecum involvement meets sepsis criteria with leukocytosis and tachycardia CT showing Severe nonspecific melchor colitis either infectious or inflammatory as detailed. pending cultures IV fluids IV Ceftriaxone and Flagyl Get GI evaluation NEuropathy Gabapentin Anxiety Hydorxyzine HTN Lisinopril GERD Omeprazole DVT PPx Lovenox The patient will need 2 overnight hospital stay for treatment of Colitis pending tolerance of PO on IV fluids and Antibiotics Quality Stroke Does the patient have a stroke diagnosis?: No VTE Prior VTE?: No VTE Risk Level:: Medical - moderate - high VTE Device Contraindication: Treatment Not Indicated VTE Drug Contraindication: N/A - Med Ordered
[2024-07-29] MEDS: metroNIDAZOLE/NS 500 MG/100 ML PIGGYBACK 100 MG IV ×2 (15:21→22:07)
[2024-07-29] MEDS: Lactated Ringers 1,000 ML 100 ML IVCONT ×2 (15:21→23:17)
[2024-07-29] MEDS: Heparin Sodium,Porcine 5,000 UNIT/ML VIAL 5000 UNIT SUBCUT ×2 (15:23→22:10)
--- NOTE | 2024-07-29 15:35 | PHA.MEDREC ---
Addendum entered by Riaz Geronimo RPh 07/29/24 16:11: Med rec was reviewed by [facility]. Original Note: Pharmacy Consult ? Medication Reconciliation Pharmacy has completed the medication reconciliation. Spoke to pt to confirm meds. Pt speaks Estonian. Patient reports to take clonazepam scheduled, no longer uses lidocaine pathces, takes magnesium daily, and takes potassium daily.
[2024-07-29] MEDS: Omeprazole 20 MG CAPSULE.DR PO (16:28)
[2024-07-29] MEDS: clonazePAM 1 MG TABLET PO (16:28)
--- NOTE | 2024-07-29 21:48 | PC.NURSE ---
Patient states drinks one sleeve of vodka nips every day. Per admission he meets positive ETOH screening but is refusing addiction intervention/consult. CIWA added to care plan. At this time CIWA is 0.
[2024-07-29] MEDS: hydrOXYzine HCL 50 MG TABLET PO (22:10)
[2024-07-29] MEDS: Gabapentin 300 MG CAPSULE PO (22:10)
[2024-07-29] MEDS: Melatonin 3 MG TABLET 6 MG PO (22:16)
[2024-07-30 03:11] VITALS: BP 128/80; PULSE 73; RESP 18; TEMP 36.3; O2SAT 98
[2024-07-30] MEDS: metroNIDAZOLE/NS 500 MG/100 ML PIGGYBACK 100 MG IV ×3 (06:12→21:46)
[2024-07-30] MEDS: Heparin Sodium,Porcine 5,000 UNIT/ML VIAL 5000 UNIT SUBCUT ×3 (06:14→22:57)
[2024-07-30] MEDS: Omeprazole 20 MG CAPSULE.DR PO ×2 (06:14→16:33)
[2024-07-30 06:44] LABS: MANUAL DIFF FLAG NO
[2024-07-30 07:03] LABS: Basophils Absolute Auto 0.1 X10*3/uL (0.0-0.2); Eosinophils Absolute Auto 0.1 X10*3/uL (0.0-0.4); Eosinophils Percent Auto 1.2 % (0-4); Hematocrit 31.6 % (42.0-52.0); Hemoglobin 10.5 g/dl (14.0-18.0); Imm Gran Abs Auto 0.02 X10*3/uL (0.00-0.03); Imm Gran Pct Auto 0.2 % (0.0-0.4); Lymphocytes Absolute Auto 2.1 X10*3/uL (1.2-4.9); Lymphocytes Percent Auto 22.8 % (20-40); Mean Corpuscular HGB Conc 33.2 g/dl (31.0-36.0); Mean Corpuscular Hemoglobin 30.7 pg (27.0-33.0); Mean Corpuscular Volume 92.4 fL (80.0-98.0); Mean Platelet Volume 9.5 fL (9.4-12.4); Monocytes Absolute Auto 0.6 X10*3/uL (0.1-1.2); Monocytes Percent Auto 7.1 % (2-11); Neutrophils Absolute Auto 6.1 x10*3/uL (2.0-8.3); Neutrophils Percent Auto 67.7 % (45-73); Platelet Count 417 X10*3/uL (160-400); Red Blood Count 3.42 X10*6/uL (4.60-5.80); Red Cell Distribution Width 15.2 % (11.0-16.0)
[2024-07-30 07:53] LABS: Alanine Aminotransferase 21 U/L (0-40); Albumin Level 2.9 g/dL (3.5-5.0); Anion Gap 10 (12-20); Aspartate Amino Transferase 30 U/L (5-37); Bilirubin Total 0.2 mg/dL (0.0-1.0); Blood Urea Nitrogen 9 mg/dL (9-16); Carbon Dioxide 24 mmol/L (22-29); Chloride 107 mmol/L (96-108); Creatinine Clr Calc Pharmacy 88.5; Estimated Glomerular Filt Rate > 60; Glucose Random 115 mg/dL (60-115); Magnesium 1.9 mg/dL (1.6-2.6); Potassium 3.1 mmol/L (3.3-5.1); Sodium 138 mmol/L (135-145); Total Protein 5.7 g/dL (6.5-8.0)
[2024-07-30 08:10] VITALS: BP 157/89; PULSE 77; RESP 18; TEMP 36.2; O2SAT 97
[2024-07-30 08:11] LABS: Alkaline Phosphatase 118 U/L (39-117); Calcium 8.1 mg/dL (8.4-10.2)
[2024-07-30] MEDS: 0.9 % Sodium Chloride Flush 3 ML SYRINGE IVFLUSH (09:39)
[2024-07-30] MEDS: hydrOXYzine HCL 50 MG TABLET PO ×2 (09:39→21:45)
[2024-07-30] MEDS: Gabapentin 300 MG CAPSULE PO ×2 (09:39→21:45)
[2024-07-30] MEDS: Potassium Chloride ER 20 MEQ TAB.ER.PRT PO (09:39)
[2024-07-30] MEDS: lisinopriL 5 MG TABLET PO (09:39)
[2024-07-30] MEDS: Thiamine HCL 100 MG TABLET PO (09:39)
[2024-07-30] MEDS: Magnesium Oxide 400 MG TABLET PO (09:39)
[2024-07-30] MEDS: cefTRIAXone sodium 1 GM VIAL IVPUSH (09:40)
--- NOTE | 2024-07-30 11:11 | MHC.CM.PN ---
IMM DELIVERED. 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 LIVES IN AN APARTMENT W/ HIS MOTHER. FUNCTIONALLY INDEPENDENT. DENIES USE OF DME OR SERVICES. PCP DR DOWELL HCP ON FILE AND VERIFIED. IMM DELIVERED. DP: HOME SELF CARE. CAR IN LOT FOR SELF TRANSPORT. CM WILL CONTINUE TO FOLLOW.
--- NOTE | 2024-07-30 11:41 | HO.PM.IMPN ---
Subjective Subjective Date of Service: 07/30/24 Interval History: seen and evaluated feels better, tolerating full liquids still reporting semi-formed diarrha no other events Review of Systems No fever, chills No chest pain, palpitation No shortness of breath or coughing improved abdominal pain, no nausea or vomiting No urinary symptoms No any rash or wounds Physical Exam Vital Signs: Vital Signs: Last Vital Signs Temp 97.1 F 07/30/24 08:10 Pulse 77 07/30/24 08:10 Resp 18 07/30/24 08:10 BP 157/89 H 07/30/24 08:10 Pulse Ox 97 07/30/24 08:10 O2 Del Method Room Air 07/30/24 08:10 BMI result Body Mass Index 21.3 Const: Other: Constitutional : Awake, interactive, not in distress Neck : Normal inspection, Supple Cardiovascular : RRR, no JVP, no lower extremity edema Respiratory : good bilateral air entry, no crackles, wheezes or rhonchi Gastrointestinal: soft, lax, bowel sounds, no significant tenderness with no rebound or surgical signs Skin : Warm, Dry Neurological : Alert & oriented x3, No focal deficit Objective Data Active Medications Acetaminophen (Acetaminophen 325 Mg Tablet) 650 mg PO Q6H PRN PRN Reason: Pain, Mild 1-3,fever,headache Calcium Carbonate (Calcium Carbonate 750 Mg Tab.Chew) 750 mg PO Q4H PRN PRN Reason: Heartburn Ceftriaxone Sodium (Ceftriaxone Sodium 1 Gm Vial) 1 gm IVPUSH Q24H [facility] Last Admin: 07/30/24 09:40 Dose: 1 gm Documented By: ADEN Clonazepam (Clonazepam 1 Mg Tablet) 1 mg PO DAILY PRN PRN Reason: Anxiety Last Admin: 07/29/24 16:28 Dose: 1 mg Documented By: BIBI Fluticasone Propionate (Fluticasone Propionate Nasal 16 Gm [place]) 1 spray NOSTRIL-B DAILY [facility] Last Admin: 07/30/24 09:42 Dose: Not Given Documented By: ADEN Non-Admin Reason: Med Not Available Gabapentin (Gabapentin 300 Mg Capsule) 300 mg PO BID [facility] Last Admin: 07/30/24 09:39 Dose: 300 mg Documented By: ADNE Heparin Sodium (Porcine) (Heparin Sodium,Porcine 5,000 Unit/Ml Vial) 5,000 unit SUBCUT Q8H [facility] Last Admin: 07/30/24 06:14 Dose: 5,000 unit Documented By: IMELDA Hydroxyzine HCl (Hydroxyzine Hcl 50 Mg Tablet) 50 mg PO BID [facility] Last Admin: 07/30/24 09:39 Dose: 50 mg Documented By: ADEN Lactated Ringer's (Lr) 1,000 mls @ 100 mls/hr IVCONT .Q10H [facility] Last Infusion: 07/30/24 06:13 Dose: 0 mls/hr Documented By: IMELDA Metronidazole (Flagyl) 500 mg in 100 mls @ 100 mls/hr IV Q8H [facility] Last Infusion: 07/30/24 07:19 Dose: Infused Documented By: ADEN Lisinopril (Lisinopril 5 Mg Tablet) 5 mg PO DAILY [facility]; Protocol Last Admin: 07/30/24 09:39 Dose: 5 mg Documented By: ADEN Magnesium Hydroxide (Milk Of Magnesia 30 Ml Oral.Susp) 30 ml PO DAILY PRN PRN Reason: Constipation Magnesium Oxide (Magnesium Oxide 400 Mg Tablet) 400 mg PO DAILY [facility] Last Admin: 07/30/24 09:39 Dose: 400 mg Documented By: ADEN Melatonin (Melatonin 3 Mg Tablet) 6 mg PO BEDTIME PRN PRN Reason: Insomnia Last Admin: 07/29/24 22:16 Dose: 6 mg Documented By: IMELDA Morphine Sulfate (Morphine Sulfate 4 Mg/Ml Cartridge) 2 mg IVPUSH Q4H PRN; Protocol PRN Reason: Pain, Severe (Pain Scale 7-10) Omeprazole (Omeprazole 20 Mg Capsule.) 20 mg PO BID@0630,1630 [facility] Last Admin: 07/30/24 06:14 Dose: 20 mg Documented By: IMELDA Ondansetron HCl (Ondansetron Hcl 4 Mg/2 Ml Vial) 4 mg IVPUSH Q8H PRN PRN Reason: Nausea and Vomiting Potassium Chloride (Potassium Chloride Er 20 Meq Tab.Er.Prt) 20 meq PO DAILY [facility] Last Admin: 07/30/24 09:39 Dose: 20 meq Documented By: ADEN Sodium Chloride (0.9 % Sodium Chloride Flush 3 Ml Syringe) 3 ml IVFLUSH QSHIFT [facility] Last Admin: 07/30/24 09:39 Dose: 3 ml Documented By: ADEN Thiamine HCl (Thiamine Hcl 100 Mg Tablet) 100 mg PO DAILY [facility] Last Admin: 07/30/24 09:39 Dose: 100 mg Documented By: ADEN Triamcinolone Acetonide (Triamcinolone Acet 0.5 % Cream 15 Gm Tube) 1 appl TOPICAL BID [facility]; Protocol Last Admin: 07/30/24 09:42 Dose: Not Given Documented By: ADEN Non-Admin Reason: Med Not Available Labs 07/30/24 05:57 07/30/24 05:57 Labs: Laboratory Results - last 24 hr 07/29/24 07/30/24 11:35 05:57 MCV 92.4 MCH 30.7 MCHC 33.2 RDW 15.2 Plt Count 417 H MPV 9.5 Immature Gran % (Auto) 0.2 Neut % (Auto) 67.7 Lymph % (Auto) 22.8 [place] % (Auto) 7.1 Eos % (Auto) 1.2 Baso % (Auto) 1.0 Lymph # (Auto) 2.1 [place] # (Auto) 0.6 Eos # (Auto) 0.1 Baso # (Auto) 0.1 Abs Immat Gran (auto) 0.02 Absolute Neuts (auto) 6.1 Absolute Nucleated RBC 0.000 Nucleated RBC % (auto) 0.0 Anion Gap 10 L Estim Creat Clear Calc 88.5 Estimated GFR > 60 Random Glucose 115 Calcium 8.1 L D Magnesium 1.9 Total Bilirubin 0.2 AST 30 ALT 21 Alkaline Phosphatase 118 H Total Protein 5.7 L Albumin 2.9 L Urine Color Yellow Urine Appearance Clear Urine pH 6.0 Ur Specific [place] >= 1.030 H Urine Protein Negative Urine Glucose (UA) Negative Urine Ketones Negative Urine Blood Negative Urine Nitrite Negative Ur Leukocyte Esterase Negative Assessment and Plan (1) Acute diarrhea: Status: Acute (2) Nausea & vomiting: Status: Acute (3) Colitis: Status: Acute (4) Sepsis: Status: Acute Plan A 59 years old male with PMH of ED, Anxiety, Alcohol abuse, GERD, HLD among others presenting to the hospital with abdominal pain and N\V\D with decrease PO intake for the last 2 days. Acute Pancolitis sepsis resolved Could be infectious vs inflammatory, no terminal ileum or Cecum involvement CT showing Severe nonspecific melchor colitis either infectious or inflammatory as detailed. pending cultures IV fluids IV Ceftriaxone and Flagyl pending stool panel Get GI evaluation if worsens otherwise OP follow up NEuropathy Gabapentin Anxiety Hydorxyzine HTN Lisinopril GERD Omeprazole DVT PPx Lovenox The patient will need overnight hospital stay for treatment of Colitis pending tolerance of PO on IV fluids and Antibiotics Quality Stroke Does the patient have a stroke diagnosis?: No VTE Prior VTE?: No VTE Risk Level:: Medical - moderate - high VTE Device Contraindication: Treatment Not Indicated VTE Drug Contraindication: N/A - Med Ordered
[2024-07-30] MEDS: Lactated Ringers 1,000 ML 100 ML IVCONT ×2 (11:46→23:00)
[2024-07-30 12:09] VITALS: BP 146/91; PULSE 85; RESP 18; TEMP 36.3; O2SAT 99
[2024-07-30 13:43] LABS: Leukocytes Stool Qualitative NEGATIVE (NEGATIVE)
[2024-07-30 14:02] LABS: Adenovirus F 40/41 Not Detected (Not Detect.); Astrovirus Not Detected (Not Detect.); Campylobacter Not Detected (Not Detect.); Cryptosporidium Not Detected (Not Detect.); Cyclospora cayetanensis Not Detected (Not Detect.); E. coli EAEC Not Detected (Not Detect.); E. coli EPEC Not Detected (Not Detect.); E. coli ETEC Not Detected (Not Detect.); E. coli STEC Not Detected (Not Detect.); Entamoeba histolytica Not Detected (Not Detect.); Giardia lamblia Not Detected (Not Detect.); Norovirus GI/GII Not Detected (Not Detect.); Plesiomonas shigelloides Not Detected (Not Detect.); Rotavirus A Not Detected (Not Detect.); Salmonella Not Detected (Not Detect.); Sapovirus Not Detected (Not Detect.); Shigella sp./EIEC Not Detected (Not Detect.); Vibrio Not Detected (Not Detect.); Vibrio Cholerae Not Detected (Not Detect.); Yersinia enterocolitica Not Detected (Not Detect.)
[2024-07-30 15:47] VITALS: BP 148/90; PULSE 89; RESP 18; TEMP 36.1; O2SAT 99
[2024-07-30 17:17] LABS: CDiff Gene PCR NEGATIVE (Negative)
[2024-07-30 19:26] VITALS: BP 172/74; PULSE 90; RESP 18; TEMP 36.2; O2SAT 99
[2024-07-30] MEDS: Acetaminophen 325 MG TABLET 650 MG PO (20:06)
--- NOTE | 2024-07-30 20:14 | PC.NURSE ---
Bloop pressure elevated 172/74, hr 90, pt reporting mild abdominal pain no other complaints at this time. Patient reports takes lisinopril 5 mg for htn at home, pt did receive the 5 mg lisinopril this morning. Dr. Uriostegui notified of elevated bp.
[2024-07-30] MEDS: clonazePAM 1 MG TABLET PO (22:57)
[2024-07-30] MEDS: Melatonin 3 MG TABLET 6 MG PO (23:06)
[2024-07-30 23:25] VITALS: BP 168/84; PULSE 80; RESP 18; TEMP 36.1; O2SAT 99
[2024-07-31 03:33] VITALS: BP 154/68; PULSE 70; RESP 18; TEMP 37.1; O2SAT 100
[2024-07-31] MEDS: metroNIDAZOLE/NS 500 MG/100 ML PIGGYBACK 100 MG IV (05:41)
[2024-07-31] MEDS: Omeprazole 20 MG CAPSULE.DR PO (05:50)
[2024-07-31 06:18] LABS: Anion Gap 10 (12-20); Blood Urea Nitrogen 5 mg/dL (9-16); Calcium 8.3 mg/dL (8.4-10.2); Carbon Dioxide 29 mmol/L (22-29); Chloride 106 mmol/L (96-108); Creatinine Clr Calc Pharmacy 87.3; Estimated Glomerular Filt Rate > 60; Glucose Random 109 mg/dL (60-115); Potassium 3.7 mmol/L (3.3-5.1); Sodium 141 mmol/L (135-145)
[2024-07-31] MEDS: Heparin Sodium,Porcine 5,000 UNIT/ML VIAL 5000 UNIT SUBCUT (06:32)
[2024-07-31 07:58] VITALS: BP 160/90; PULSE 75; RESP 18; TEMP 36.1; O2SAT 97
[2024-07-31] MEDS: lisinopriL 5 MG TABLET PO (08:40)
[2024-07-31] MEDS: hydrOXYzine HCL 50 MG TABLET PO (08:41)
[2024-07-31] MEDS: Thiamine HCL 100 MG TABLET PO (08:41)
[2024-07-31] MEDS: Gabapentin 300 MG CAPSULE PO (08:41)
[2024-07-31] MEDS: Potassium Chloride ER 20 MEQ TAB.ER.PRT PO (08:41)
[2024-07-31] MEDS: Magnesium Oxide 400 MG TABLET PO (08:41)
[2024-07-31] MEDS: cefTRIAXone sodium 1 GM VIAL IVPUSH (08:41)
--- NOTE | 2024-07-31 11:44 | PM.DS ---
DS: Providers Provider Date of Service: 07/31/24 Date of admission: 07/29/24 13:23 Date of discharge: 07/31/24 Primary care physician: Gillian Dupree MD DS: Diagnosis Discharge Diagnosis (1) Acute diarrhea: Status: Acute (2) Nausea & vomiting: Status: Acute (3) Colitis: Status: Acute (4) Sepsis: Status: Acute DS: Summary Hospital Course Hospital Course: Admission note HPI A 59 years old male with PMH of ED, Anxiety, Alcohol abuse, GERD, HLD among others presenting to the hospital with abdominal pain and N\V\D with decrease PO intake for the last 2 days. The patient reports 2 days of ongoing mid abdominal pain, nausea, vomiting, diarrhea and being unable to tolerate any PO or keep it down. No reported fever but had chills. No chest pain, palpitations, SOB, or urinary symptoms. He continues to drink alcohol with last drink In ED noted to have Leukocytosis, transaminitis and hypomagnesemia with CT scan showing evidence of Severe nonspecific melchor colitis either infectious or inflammatory. Started on IV fluids and IV antibiotics and admitted for further work up and management. Hospital course The patient was admitted for treatment of Acute Pancolitis as CT showing Severe nonspecific melchor colitis either infectious or inflammatory in nature. complicated by sepsis on admission. treated with IV fluids, IV antibiotics and advancing diet as tolerated over the course of hospital stay with good tolerance. blood cultures remained negative. Negative stool panel and stool WBCs. He was also treated for acute hypomagnesemia with IV replacement. He was advised to quit drinking alcohol. To be discharged home on Ceftin and Flagyl for 5 more days with a plan to follow with PCP to arrange for Colonoscopy as he never did it before. Discharge plan Continue Flagyl and Ceftin Advance diet as tolerated We advise you total abstinence from alcohol Magnesium supplement as prescribed Follow up with PCP to arrange for Colonoscopy Time Attestation Discharge Coordination Time (in mins): 38 Quality: Safe Use of Opioids Does Pt have an Active Cancer Diagnosis on the Problem List?: No Quality: Stroke Does the patient have a stroke diagnosis?: No Physical Exam Vital Signs: Vital Signs: Last Vital Signs Temp 97.0 F 07/31/24 07:58 Pulse 75 07/31/24 07:58 Resp 18 07/31/24 07:58 BP 160/90 H 07/31/24 07:58 Pulse Ox 97 07/31/24 07:58 O2 Del Method Room Air 07/31/24 07:58 BMI result Body Mass Index 21.3 Const: Other: Constitutional : Awake, interactive, not in distress Neck : Normal inspection, Supple Cardiovascular : RRR, no JVP, no lower extremity edema Respiratory : good bilateral air entry, no crackles, wheezes or rhonchi Gastrointestinal: soft, lax, bowel sounds, no tenderness with no rebound or surgical signs Skin : Warm, Dry Neurological : Alert & oriented x3, No focal deficit DS: Data Data Completed and Pending Labs on day of discharge: Laboratory Results - last 24 hr 07/30/24 07/30/24 07/31/24 11:58 11:59 05:28 Sodium 141 Potassium 3.7 Chloride 106 Carbon Dioxide 29 Anion Gap 10 L BUN 5 L Creatinine 0.71 Estim Creat Clear Calc 87.3 Estimated GFR > 60 Random Glucose 109 Calcium 8.3 L Stool Leukocytes, Qual NEGATIVE Stl C. cayetanensis PCR Not Detected Stool Rotavirus A PCR Not Detected Stl Adenov F 40/41 PCR Not Detected Stool Astrovirus (PCR) Not Detected Stool Campylobacter PCR Not Detected Stool Cryptosporidium PCR Not Detected Stl Sh Tox Pr E STEC PCR Not Detected Stool E coli O157 PCR Not applicable Stl Enterotoxigenic E PCR Not Detected Stool EPEC (PCR) Not Detected Stool EAEC (PCR) Not Detected Stl E. histolytica PCR Not Detected Stool Giardia Lamblia PCR Not Detected Stl P. shigelloides PCR Not Detected Stool Salmonella PCR Not Detected Stool Sapovirus (PCR) Not Detected Stl Shigella/EIEC PCR Not Detected St Y.enterocolitica PCR Not Detected Stool Vibrio (PCR) Not Detected Stl Vibrio cholerae PCR Not Detected Stl Norovirus GI/GII PCR Not Detected C. difficile Tox B Gene NEGATIVE Preliminary micro results at discharge 07/29/24 09:42 Blood Culture - Preliminary Blood - Venous No growth after 24 hours. 07/29/24 09:42 Blood Culture - Preliminary Blood - Venous No growth after [address] scan - abdomen: Radiologist's impression: Impression: Severe nonspecific melchor colitis either infectious or inflammatory as detailed. No apparent obstruction. Trace ascites. No pneumatosis or free air. This document has been electronically signed by: Beto Magana MD on 07/29/2024 12:00:59 Discharge Plan Discharge Anticipated Discharge Date/Time: 07/31/24 11:29 Patient Disposition: Home, Self-Care Discharge Diagnosis: Colitis Referrals: Po,Gillian Cook MD [Primary Care Provider] - 1 Week Discharge Medications: New metronidazole 500 mg tablet 500 mg PO Q8H Qty: 15 0RF cefuroxime axetil 500 mg tablet 500 mg PO BID Qty: 10 0RF Continued hydroxyzine HCl 50 mg tablet 50 mg PO BID Qty: 180 2RF fluticasone propionate 50 mcg/actuation spray,suspension 1 spray intranasal DAILY Qty: 16 5RF gabapentin 300 mg capsule 300 mg PO BID Qty: 180 2RF clonazepam 1 mg tablet 1 mg PO DAILY potassium chloride [Klor-Con M20] 20 mEq tablet,ER particles/crystals 20 meq PO DAILY omeprazole 20 mg Capsule,Delayed Release(Dr/Ec) 20 mg PO BID@0630,1630 acetaminophen [Tylenol Extra Strength] 500 mg tablet 500 mg PO Q6H PRN (Reason: fever or pain) Qty: 14 0RF thiamine HCl (vitamin B1) 100 mg tablet 100 mg PO DAILY (DME) blood pressure monitor [Blood Pressure Kit] Kit See Rx Instructions .ROUTE .MEDSUPPLY Qty: 1 0RF Rx Instructions: As directed lisinopril 5 mg tablet 5 mg PO DAILY Qty: 30 3RF tramadol 50 mg tablet 50 mg PO BID PRN (Reason: pain) Qty: 60 3RF triamcinolone acetonide 0.5 % cream 1 appl topical BID Qty: 30 0RF sildenafil 50 mg tablet 50 mg PO DAILY PRN (Reason: sexual activity) Qty: 5 0RF Rx Instructions: administer 30 minutes to 4 hours before activity Changed magnesium oxide [MagOx] 400 mg (241.3 mg magnesium) tablet 400 mg PO DAILY Qty: 90 0RF Discharge Orders: Discharge Order (Routine); Ordered 07/31/24 Ordered By: Amos Sahu Diet: Advance to usual diet Activity on Discharge: As tolerated Stand Alone Forms: Patient Portal Discharge page Print Language: Hebrew Care Plan Goals: Continue Flagyl and Ceftin Advance diet as tolerated We advise you total abstinence from alcohol Magnesium supplement as prescribed Follow up with PCP to arrange for Colonoscopy Health Concerns: Colitis Plan of Treatment: Antibiotics Assessment: as above
[2024-07-31 12:03] VITALS: BP 131/90; PULSE 92; RESP 18; TEMP 36.1; O2SAT 97
--- NOTE | 2024-07-31 12:08 | MHC.CM.PN ---
DP: PT HAS BEEN MEDICALLY CLEARED FOR DC HOME, NO SERVICES, CAR IS IN LOT.
== END 2024-07-31 13:16 | disposition home or self-care (01) | DRG 872 ==
LOC: HO.ED 12:59 → HO.EDOVER 13:31 → HO.S3 19:40
PROVIDERS: Physician Assistant; Admitting Provider Student in an Organized Health Care Education/Training Program; Emergency Provider Emergency Medicine; PCP Internal Medicine; Visit Provider Student in an Organized Health Care Education/Training Program
DX: A41.9 Sepsis, unspecified organism (principal); K52.9 Noninfective gastroenteritis and colitis, unspecified; F10.11 Alcohol abuse, in remission; E83.42 Hypomagnesemia; I10 Essential (primary) hypertension; G62.9 Polyneuropathy, unspecified; F41.9 Anxiety disorder, unspecified; Z87.891 Personal history of nicotine dependence; Z79.51 Long term (current) use of inhaled steroids; Z79.899 Other long term (current) drug therapy
CPT/HCPCS: 36415; 74177; 80048; 80053; 81003; 83605; 83690; 83735; 85025; 87040; 87493; 87507; 89055; 99285; J0696; J1644; J1836; J1885; J2405; J2543; J3475; J7120; Q9967

== ENCOUNTER → 2024-07-29 08:41 | Outpatient (BNV) | payer MEDICARE, MEDICAID, SELFPAY | PROVIDERS: Emergency Provider Emergency Medicine; PCP Internal Medicine; Visit Provider Radiology Diagnostic Radiology | DX: K51.018 Ulcerative (chronic) pancolitis with other complication (principal) | CPT/HCPCS: 74177 ==

== ENCOUNTER → 2024-07-29 13:23 | Outpatient (BNV) | payer MEDICARE, MEDICAID, SELFPAY | PROVIDERS: Admitting Provider Student in an Organized Health Care Education/Training Program; Emergency Provider Emergency Medicine; PCP Internal Medicine; Visit Provider Student in an Organized Health Care Education/Training Program | DX: A41.9 Sepsis, unspecified organism (principal); R11.2 Nausea with vomiting, unspecified; K52.9 Noninfective gastroenteritis and colitis, unspecified | CPT/HCPCS: 99223; 99232; 99239 ==

== ENCOUNTER 2024-08-02 13:56 | Outpatient (AMB) | payer MEDICARE, MEDICAID, SELFPAY ==
--- NOTE | 2024-08-02 14:13 | MHC.PC.OV ---
Vital Signs 08/02/24 14:15 Height 5 ft 2 in Weight 124 lb 2 oz BMI 22.7 BP 140/92 H Blood Pressure Location Lt brachial Position Sitting Pulse 94 Pulse Source Pulse Oximeter Temp 97.3 F Temp Source Skin Pulse Oximetry (%) 96 Oxygen Delivery Method Room Air Intake Visit Reasons: [facility] 07/31 Pancolitis Intake Note: Patient is here for hospital discharge and TCM follow up. Patient was discharged from [facility] on 07/31/24. Director Radio News Required: Yes Director Radio News Language: Bulgarian Information Interpreted: non-clinical & clinical Accountancy Professor: Not Required per policy Accompanied by: Self / Same As Patient Allergies povidone-iodine Allergy (Verified 08/02/24 14:15) Rash Tobacco use date assessed: 08/02/24 Dental Screening Dental Screen Date: 07/21/24 HPI [facility] 07/31 Pancolitis HPI Details 59 year old male with past history of generalized anxiety disorder, GERD, avascular necrosis of the left hip, and hypercholesterolemia last seen by Dr. Dupree 06/2024 coming in for hospital discharge follow up. In review of the notes, patient was seen in [facility] ED 07/29/2024 abdominal pain with nausea and vomiting CT scan showing evidence for pancolitis started on IV fluids and IV antibiotics and admitted for further evaluation. Patient was stabilized and discharged home on Ceftin and Flagyl and arrange for colonoscopy. Patient states he has been feeling generally well since discharge from the hospital. He has advanced to a normal diet but has been avoiding trigger foods such as foods high in fat and greasy foods. He did not take his blood pressure medication this morning because he was dealing with his mother and we will take it later today. He has been taking his blood pressure at home intermittently and states they have all been in the normal range. [facility] TCM Information Date of Discharge 07/31/24 Discharged From [facility] Interactive Contact Date (Reference documentation from this date) 08/02/24 [facility] Medical History (Updated 08/02/24 @ 14:45 by Sarahy Bledsoe PA-C) Hypomagnesemia Blood pressure elevated without history of HTN Colon cancer screening declined Hypertriglyceridemia Hypercholesterolemia Avascular necrosis of bone of left hip Insomnia Polysubstance abuse Anxiety and depression Alcohol abuse History of pancreatitis GERD (gastroesophageal reflux disease) Surgical History History of drainage of abscess H/O total hip arthroplasty Family History Father CAD (coronary artery disease) S/P CABG x 2 Mother Hypertension Osteoarthritis Brother Alive and well Sister Deaf Maternal Grandmother Cancer Maternal Grandfather Dementia Family/Other Alzheimers disease Social History Household Members: Significant Other Housing: Apartment Do you presently have visiting nurse or other home services: No Unable to assess alcohol history related to: Unknown Alcohol intake: current Alcohol intake frequency: 3 or more drinks per day Alcohol type: beer and hard liquor Patient Tobacco Use Status: Former Tobacco user Tobacco use type: Cigarette Years Smoked: 2010 quit e-Cigarette/Vaping Use: Never Used Second Hand Smoke Exposure: Yes service: No Current occupational status: disabled and other Current occupation: right handed. Cognitive needs: No Hearing needs: No Vision needs: No Questionnaire Thrive Questionnaire Date Thrive assessed: 07/30/24 PRADIP-7 AMB Questionnaire PRADIP-7 Date PRADIP - 7 assessed: 07/21/24 Source: Developed by Drs. Andrae Del Rio, Jennifer Ahmadi, Zeferino Villarreal and colleagues, with an educational medardo from [employer]. Review of Systems Const Denies body aches, Denies chills, Denies fever(s), Denies headache(s) and Denies poor appetite Eyes Reports no additional complaints ENT Denies dysphagia, Denies dizziness, Denies headache(s) and Denies odynophagia Card Denies chest pain, Denies syncope, Denies edema, Denies irregular heart rhythm, Denies lightheadedness and Denies dyspnea Resp Denies cough and Denies dyspnea GI Denies abdominal pain, Denies constipation, Denies dysphagia, Denies diarrhea, Denies nausea, Denies odynophagia and Denies vomiting Reports no additional complaints Musc Reports no additional complaints and Denies abnormal gait Skin/Breast Reports system reviewed and no additional complaints, except as documented Neuro Denies abnormal gait, Denies dizziness, Denies syncope and Denies headache(s) Psych Reports no additional complaints Physical exam (Primary Care) Vital Signs: Last Vital Signs Temp 97.3 F 08/02/24 14:15 Oxygen Delivery Method Room Air 08/02/24 14:15 BMI result Body Mass Index 22.0 Tobacco/Smoking Status: Tobacco use Status Tobacco use date assessed 07/21/24 08/02/24 14:13 Patient Tobacco Use Status Former Tobacco user 08/02/24 14:13 Tobacco use type Cigarette 08/02/24 14:13 e-Cigarette/Vaping Use Never Used 08/02/24 14:13 Thrive Assessment: Date of Thrive Assessment Date Thrive assessed 07/30/24 08/02/24 14:13 Const General: cooperative, healthy appearing, comfortable and no acute distress Orientation/consciousness: patient oriented x3 HENMT Head: Yes normocephalic Ears: hearing grossly normal bilaterally General nose exam: Normal external nose present Eyes General: appearance normal, both eyes and all related structures Conjunctivae: conjunctivae normal Neck Neck: Yes full ROM and Yes no lymphadenopathy Resp Effort & Inspection: normal respiratory effort Auscultation: clear to auscultation bilaterally, no crackles, no rales, no rhonchi and no wheezes Cardio Rate: regular rate Rhythm: regular rhythm GI Inspection: Yes normal to inspection Palpation (GI): Soft to palpation, not firm, nontender, no guarding, not rigid and No Rebound tenderness present Skin General skin exam: no rashes or lesions noted Neuro General: patient oriented x3 Gait exam (Neuro): Normal gait present Extrem General: Yes normal to inspection, Yes full ROM and No edema Psych Affect: normal affect Attitude: cooperative Insight: Good insight present (Psych) Judgement: Good judgement present (Psych) Coding Level of Care Code TCM Mod MDM <= 7 Days Complex EM visit Add On G2211 Diagnoses Pancolitis K51.00 Cough R05.9 Nausea & vomiting R11.2 Hypertension I10 Hypomagnesemia E83.42 Assessment & Plan Assessment & Plan (1) Pancolitis: Code(s): K51.00 - Ulcerative (chronic) pancolitis without complications Category: Medical Plan: Patient having been diagnosed with pancolitis while admitted to [facility]. Per hospitalist recommending follow up with GI with colonoscopy and endoscopy referral placed to GI today. Patient is asymptomatic at this time continue to avoid trigger foods and please reach out to the office if symptoms develop. Reviewed red flag symptoms and when to present for re-evaluation (2) Cough: Code(s): R05.9 - Cough, unspecified Category: Medical Plan: Patient having cough that began last night denies any chest pains or shortness of breath but does have a dry cough. Given recent hospitalization likely patient picked up a viral cough. Ordered for viral testing for COVID flu and RSV. (3) Nausea & vomiting: Code(s): R11.2 - Nausea with vomiting, unspecified Category: Medical Plan: Resolved (4) Hypertension: Code(s): I10 - Essential (primary) hypertension Category: Medical Plan: Continue on current blood pressure medication. Avoid salt intake and encourage healthy diet and regular exercise. Patient states blood pressures at home have been within normal limits. Discussed with patient his blood pressure reading today likely is not accurate due to not having taken lisinopril. Advised to continue to take blood pressures at home and please reach out to the office if blood pressures are over 140/90. (5) Hypomagnesemia: Code(s): E83.42 - Hypomagnesemia Category: Medical Plan: Patient having hypomagnesemia while admitted. Advised to continue on magnesium supplement as prescribed by hospitalist and repeat blood work next week. Plan Patient was informed and verbally consented to the use of an ambient scribe for clinic note documentation during this visit. This note was constructed using voice recognition software. While every effort has been made to ensure accuracy and craft coordinator, still areas may have been included sometimes these areas may affect the content or meeting of the given symptoms. Total time spent caring for the patient today was 20 minutes. This includes time spent before the visit reviewing the chart, time spent during the visit, and time spent after the visit and documentation. Orders: Orders SARS-CoV2/FLU/RSV Today R09.89 - Other specified symptoms and signs involving the circulatory and respiratory systems Referrals Gastroenterology Referral K51.00 - Ulcerative (chronic) pancolitis without complications
[2024-08-02 14:15] VITALS: BP 140/92; PULSE 94; TEMP 36.3; O2SAT 96; BMI 22.7
--- OUTSIDE RECORDS SUMMARY | 2024-08-02 15:15 | XMS_ITS ---
Author Organization [facility] Address Unknown Problems Problem Status Start Date End Date PRESENCE OF LEFT ARTIFICIAL HIP JOINT (Primary) (Z96.642 - ICD-10-CM) ACTIVE 09/02/2018 MUSCLE WEAKNESS (GENERALIZED) (M62.81 - ICD-10-CM) ACT DEMAR 09/02/2018 OTHER ABNORMALITIES OF GAIT AND MOBILITY (R26.89 - ICD-10-CM) ACTIVE 09/02/2018 UNSPECIFIED OSTEOARTHRITIS, UNSPECIFIED SITE (M19.90 - ICD-10-CM) ACTIVE 09/02/2018 IDIOPATHIC ASEPTIC NECROSIS OF LEFT FEMUR (M87.052 - ICD-10-CM) ACTIVE 09/02/2018 ENCOUNTER FOR OTHER SPECIFIE D SURGICAL AFTERCARE (Z48.89 - ICD-10-CM) ACTIVE 09/02/2018 ANXIETY DISORDER, UNSPECIFIED (F41.9 - ICD-10-CM) ACTI VE 09/02/2018 MAJOR DEPRESSIVE DISORDER, R ECURRENT, UNSPECIFIED (F33.9 - ICD-10-CM) ACTIVE 09/02/2018 ALCOHOL ABUSE, UNCOMPLICATED (F10.10 - ICD-10-CM) ACTI VE 09/02/2018 GASTRO-ESOPHAGEAL REFLUX DIS EASE WITHOUT ESOPHAGITIS (K21.9 - ICD-10-CM) ACTIVE 09/02/2018 LIVER DISEASE, UNSPECIFIED (K76.9 - ICD-10-CM) ACTIVE 09/02/2018 OTHER CHRONIC PANCREATITIS (K86.1 - ICD-10-CM) ACTIVE 09/02/2018 Encounters Encounter Performer Performer Role Encounter Diagnoses Location Date Discharge - Home - Other [facility] 09/02/2018 11:39 am EDT - 09/04/2018 09:00 pm EDT Immunizations Vaccine Date Influenza TB 2 Step Mantoux Skin Test 09/02/2018 0 6:00 pm EDT PCV13 (Pneumococcal Conjugate)Vaccine 12:00 am EDT Social History
--- OUTSIDE RECORDS SUMMARY | 2024-08-02 15:15 | XMS_ITS | Clinical Summary ---
Author Organization [facility] Address [address] [place] [address] Care Team Providers Care Boat Camp Operator Name Role Phone Unavailable Primary Care Provider Unavailabl e Immunizations Name Administration Dates Next Due Moderna Covid-19 Vaccine 6+ Bivalent 07/13/2022 Social History Tobacco Use Types Packs/Day Years Used Date Smoking Tobacco: Never Assessed Sex and Gender Information Value Date Recorded Sex Assigned at Male 04/20/2022 10:18 AM EDT Legal Sex Male 10:18 AM EDT Gender Identity Male 04/20/2022 10:18 AM EDT Sexual Orientation Don't know 04/20/2022 10 :18 AM EDT Plan of Treatment Health Maintenance Due Date Last Done Comments CT Colonography 1966 Colonoscopy 1966 Colorectal Cancer Screening 1966 Depression Screening 1966 FIT DNA/Cologuard 1966 FIT 1966 FOBT 1966 HIV Screening 1966 Lipid Panel 1966 SDOH Screening 1966 Sigmoidoscopy 1966 Alcohol/Substance Use Screening 1978 Tobacco Screening 1978 Hepatitis C Screening 1984 Hepatitis A Vaccines (1 of 2 - Risk 2-dose series) 1985 Hepatitis B Vaccines (1 of 3 - 19+ 3-dose series) 1985 Zoster Vaccines (1 of 2) 2016 Pneumococcal Vaccine: 50+ Years (3 of 3 - PCV20 or PCV21) 01/13/2023 01/13/2018, 03/21/2017 COVID-19 Vaccine ( season) 2024 03/18/2023, 07/13/2022, 11/16/2020, Additional history exists Influenza Vaccine (#1) 2024 3, 02/25/2021, 06/05/2020, Additional history exists DTaP/Tdap/Td Vaccines (2 - Td or Tdap) 10/25/2024 10/25/2014 RSV Patients and Patients Aged 60 years or older (1 - 1-dose 75+ series) 2041 Pneumococcal Vaccine: Pediatrics (0 to 5 Years) and At-Risk Patients (6 to 49) Years) Aged Out 01/13/2018, 03/21/2017 No longer eligibl e based on patient's age to complete this topic HIB Vaccines Aged Out No longer eligi ble based on patient's age to complete this topic HPV Vaccines Aged Out No longer eligi ble based on patient's age to complete this topic IPV Vaccines Aged Out No longer eligi ble based on patient's age to complete this topic Meningococcal Vaccine Aged Out No barbara andie eligible based on patient's age to complete this topic RSV under 20 months Aged Out No longe r eligible based on patient's age to complete this topic Rotavirus Vaccines Aged Out No longer eligible based on patient's age to complete this topic Insurance MEDICARE [facility]
== END 2024-08-02 14:38 | disposition home or self-care (01) ==
PROVIDERS: PCP Internal Medicine
DX: K51.00 Ulcerative (chronic) pancolitis without complications (principal); R05.9 Cough, unspecified; R11.2 Nausea with vomiting, unspecified; I10 Essential (primary) hypertension; E83.42 Hypomagnesemia

== ENCOUNTER → 2024-08-02 13:56 | Outpatient (BNVA) | payer MEDICARE, MEDICAID, SELFPAY | PROVIDERS: PCP Internal Medicine | DX: K51.00 Ulcerative (chronic) pancolitis without complications (principal); R05.9 Cough, unspecified; R11.2 Nausea with vomiting, unspecified; I10 Essential (primary) hypertension; E83.42 Hypomagnesemia | CPT/HCPCS: 99495 ==

== ENCOUNTER 2024-08-03 13:41 | Outpatient (REF) | payer MEDICARE, MEDICAID, SELFPAY ==
--- OUTSIDE RECORDS SUMMARY | 2024-08-03 13:49 | XMS_ITS | Clinical Summary ---
Author Organization [facility] Address [address] [place] [address] Care Team Providers Care Rock Contractor Name Role Phone Unavailable Primary Care Provider [...] age to complete this topic Insurance MEDICARE [facility]
[2024-08-03 15:06] LABS: Influenza A PCR POSITIVE (Negative); Influenza B PCR NEGATIVE (Negative); Resp Syncy Virus RNA Qual PCR NEGATIVE (Negative); SARS COV2 PCR INHOUSE NEGATIVE (Negative)
== END 2024-08-03 13:42 | disposition home or self-care (01) ==
LOC: HO.LAB 13:41
PROVIDERS: PCP Internal Medicine; Visit Provider Internal Medicine
DX: R09.89 Other specified symptoms and signs involving the circulatory and respiratory systems (principal)
CPT/HCPCS: 0241U

== ENCOUNTER 2024-08-04 11:50 | Outpatient (REF) | payer MEDICARE, MEDICAID, SELFPAY ==
[2024-08-04 12:02] LABS: MANUAL DIFF FLAG NO
--- OUTSIDE RECORDS SUMMARY | 2024-08-04 12:31 | XMS_ITS | Clinical Summary ---
Author Organization [facility] Address [address] [place] [address] Care Team Providers Care Retail Assistant Manager Name Role Phone Unavailable Primary Care Provider [...] age to complete this topic Insurance MEDICARE [facility]
[2024-08-04 12:32] LABS: Basophils Absolute Auto 0.1 X10*3/uL (0.0-0.2); Basophils Percent Auto 2.5 % (0-2); Eosinophils Percent Auto 0.4 % (0-4); Hematocrit 36.2 % (42.0-52.0); Hemoglobin 12.2 g/dl (14.0-18.0); Imm Gran Abs Auto 0.01 X10*3/uL (0.00-0.03); Imm Gran Pct Auto 0.2 % (0.0-0.4); Lymphocytes Absolute Auto 2.3 X10*3/uL (1.2-4.9); Lymphocytes Percent Auto 50.7 % (20-40); Mean Corpuscular HGB Conc 33.7 g/dl (31.0-36.0); Mean Corpuscular Hemoglobin 30.8 pg (27.0-33.0); Mean Corpuscular Volume 91.4 fL (80.0-98.0); Monocytes Absolute Auto 0.7 X10*3/uL (0.1-1.2); Monocytes Percent Auto 16.6 % (2-11); Neutrophils Absolute Auto 1.3 x10*3/uL (2.0-8.3); Neutrophils Percent Auto 29.6 % (45-73); Platelet Count 498 X10*3/uL (160-400); Red Blood Count 3.96 X10*6/uL (4.60-5.80); Red Cell Distribution Width 14.9 % (11.0-16.0); White Blood Count 4.5 X10*3/uL (4.8-10.8)
[2024-08-04 12:41] LABS: Estimated Average Glucose 91 mg/dL; Hemoglobin A1C 92.5607 umol/L; Hemoglobin A1c % 4.8 % (<6.0)
[2024-08-04 13:16] LABS: Alanine Aminotransferase 159 U/L (0-40); Albumin Level 3.9 g/dL (3.5-5.0); Alkaline Phosphatase 244 U/L (39-117); Anion Gap 15 (12-20); Aspartate Amino Transferase 280 U/L (5-37); Bilirubin Total 0.3 mg/dL (0.0-1.0); Blood Urea Nitrogen 18 mg/dL (9-16); Carbon Dioxide 23 mmol/L (22-29); Chloride 104 mmol/L (96-108); Cholesterol 131 mg/dL (<200); Estimated Glomerular Filt Rate > 60; Glucose Random 100 mg/dL (60-115); HDL Cholesterol 24 mg/dL (>40); Lipase 25 U/L (8-78); Magnesium 1.7 mg/dL (1.6-2.6); Potassium 4.6 mmol/L (3.3-5.1); Sodium 137 mmol/L (135-145); Total Protein 7.7 g/dL (6.5-8.0); Triglycerides 864 mg/dL (<150)
[2024-08-04 13:34] LABS: Free T4 (Free Thyroxine) 0.99 ng/dL (0.71-1.85); Thyroid Stimulating Hormone 1.05 uIU/mL (0.32-4.0)
[2024-08-04 13:49] LABS: Folate 12.1 ng/mL (> or = 4.0); Prostate Specific Antigen Scr 0.97 ng/mL (<0.05-4.0); Vitamin B12 453 pg/mL (200-900)
== END 2024-08-04 11:51 | disposition home or self-care (01) ==
LOC: HO.LAB 11:50
PROVIDERS: PCP Internal Medicine; Visit Provider Internal Medicine
DX: I10 Essential (primary) hypertension (principal); E78.00 Pure hypercholesterolemia, unspecified; D64.9 Anemia, unspecified; Z12.5 Encounter for screening for malignant neoplasm of prostate; Z13.1 Encounter for screening for diabetes mellitus
CPT/HCPCS: 36415; 80053; 80061; 82607; 82746; 83036; 83690; 83735; 84153; 84439; 84443; 85025

== ENCOUNTER 2024-09-04 10:02 | Outpatient (REF) | payer MEDICARE, MEDICAID, SELFPAY ==
--- NOTE | ~2024-09-04 | XR_ITS ---
CLINICAL HISTORY: M25.559 - Pain in unspecified hip 1 view pelvis Comparison: CT of the pelvis and bone windows from 07/29/2024 Findings: Moderate osteoarthritis of the right hip with small os acetabulum versus superior loose body. Portions of the pelvis are obscured, including majority of the sacrum No hardware loosening of the left hip arthroplasty bifrontal radiographs. Superficial metal in left lateral hip abductor muscular region. Phleboliths are noted in the pelvis. [id number] stool burden in the [id number]. IMPRESSION: 1. Moderate osteoarthritis of the right hip. 2. No hardware loosening of the left hip arthroplasty by one view x-ray This document has been electronically signed by: Willis Flores MD on 09/05/2024 20:00:34
== END 2024-09-04 10:03 | disposition home or self-care (01) ==
LOC: HO.HOSX 10:02
PROVIDERS: Visit Provider Orthopaedic Surgery
DX: M25.559 Pain in unspecified hip (principal); M16.0 Bilateral primary osteoarthritis of hip; Z96.642 Presence of left artificial hip joint
CPT/HCPCS: 72170; 99212

== ENCOUNTER 2024-09-04 12:55 | Outpatient (AMB) | payer MEDICARE, MEDICAID, SELFPAY ==
--- NOTE | 2024-09-04 13:05 | A.OFFVIS_ITS ---
Intake Visit Reasons: New Pt - Left ANTHONY 2019 - Increased pain Intake Note: Jose is a 59 year old male who presents today as a new patient with complaints of left hip pain. He has been seen previously in the office in 2020 as he has history of Left ANTHONY 08/30/2018 w/ NE. Patient reports that he is having a pinchin g feeling of the left hip, he is unsure if this is a pinched nerve or a muscle. Allergies povidone-iodine Allergy (Verified 08/02/24 14:15) Rash HPI HPI New Pt - Left ANTHONY 2019 - Increased pain: Details: Jose has occasional pain in the posterolateral aspect of his greater trochanter. Denies groin pain. States his pain is minimal. Just wanted to make sure his x-rays look okay. [facility] Medical History Hypomagnesemia Blood pressure elevated without history of HTN Colon cancer screening declined Hypertriglyceridemia Hypercholesterolemia Avascular necrosis of bone of left hip Insomnia Polysubstance abuse Anxiety and depression Alcohol abuse History of pancreatitis GERD (gastroesophageal reflux disease) Surgical History History of drainage of abscess H/O total hip arthroplasty Family History Father CAD (coronary artery disease) S/P CABG x 2 Mother Hypertension Osteoarthritis Brother Alive and well Sister Deaf Maternal Grandmother Cancer Maternal Grandfather Dementia Family/Other Alzheimers disease Social History Household Members: Significant Other Housing: Apartment Do you presently have visiting nurse or other home services: No Unable to assess alcohol history related to: Unknown Alcohol intake: current Alcohol intake frequency: 3 or more drinks per day Alcohol type: beer and hard liquor Patient Tobacco Use Status: Former Tobacco user Tobacco use type: Cigarette Years Smoked: 2010 quit e-Cigarette/Vaping Use: Never Used Second Hand Smoke Exposure: Yes service: No Current occupational status: disabled and other Current occupation: right handed. Cognitive needs: No Hearing needs: No Vision needs: No Physical Exam Extrem Other: On exam he has a normal gait. No pain with hip range of motion. Mild tenderness to deep palpation posterolateral greater trochanter. Results Reviewed Results Reviewed: I personally reviewed relevant radiographs. Left ANTHONY in expected post operative position with no hardware complications or evidence of loosening. No changes compared to prior. Assessment & Plan Assessment & Plan (1) Avascular necrosis of bone of left hip: Comment: March 2018 left hip arthroplasty August 2018 Dr. 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 Some mild bursal symptoms. Discussed treatment options but he is satisfied that the x-rays look unchanged compared to prior. Follow up p.r.n.. Orders: Orders XR pelvis 1-2V Today M25.559 - Pain in unspecified hip Coding Level of Care Code Est Pt Level 3 (01280) Diagnoses Avascular necrosis of bone of left hip M87.052
== END 2024-09-04 13:13 | disposition home or self-care (01) ==
LOC: HO.HOS 12:55
PROVIDERS: PCP Internal Medicine; Visit Provider Orthopaedic Surgery
DX: M87.052 Idiopathic aseptic necrosis of left femur (principal); Z96.642 Presence of left artificial hip joint
CPT/HCPCS: 99213

== ENCOUNTER → 2024-09-04 12:59 | Outpatient (BNV) | payer MEDICARE, MEDICAID, SELFPAY | PROVIDERS: Visit Provider Radiology Neuroradiology | DX: M16.11 Unilateral primary osteoarthritis, right hip (principal) | CPT/HCPCS: 72170 ==

== ENCOUNTER 2024-09-11 12:14 | Emergency (ER) | payer MEDICARE, MEDICAID, SELFPAY ==
[2024-09-11] VITALS (7 sets, daily range): BP systolic 96–131; BP diastolic 64–87; PULSE 81–88; RESP 16–22; TEMP 36.7–36.8; O2SAT 97–100; BMI 19.5
--- NOTE | ~2024-09-11 | US_ITS ---
EXAMINATION: US ABDOMEN LIMITED CLINICAL INFORMATION: Elevated liver function tests.. COMPARISON: March 28, 2017. Correlated to CT dated July 29, 2024 TECHNIQUE: Real-time imaging of the right upper quadrant abdominal viscera. FINDINGS: PANCREAS: No peripancreatic fluid collections. LIVER: Liver measures 17 cm. No nodular surface. Coarse echotexture. No solid or cystic lesion identified by the technologist. No intrahepatic biliary ductal dilatation. Main portal vein is patent with normal hepatopedal flow direction. GALLBLADDER: Contracted. No pericholecystic fluid collection or gallbladder wall thickening. COMMON BILE DUCT: 4 mm. RIGHT KIDNEY: 10 cm. Normal echotexture. No solid or cystic lesion. No hydronephrosis. Normal renal cortical thickness. Normal flow on color Doppler interrogation of the renal hilum. FREE FLUID: None. US/US abdomen limited IMPRESSION: Hepatomegaly, mild. No ascites. No hydronephrosis right kidney. Electronically signed by: Alvaro Gomez MD 09/11/2024 03:18 PM EDT
--- NOTE | ~2024-09-11 | XR_ITS ---
EXAMINATION: XR CHEST CLINICAL INFORMATION: Weakness COMPARISON: May 14, 2019. TECHNIQUE: Frontal view of the chest was obtained. FINDINGS: No consolidation, pleural effusion or pneumothorax. No hyperinflation. Cardiomediastinal silhouette size is normal. Osseous structures are intact. XR/XR chest 1V IMPRESSION: No acute airspace disease. Stable chest. Electronically signed by: Alvaro Gomez MD 09/11/2024 01:34 PM EDT
--- NOTE | 2024-09-11 12:41 | ED.GENADULT ---
HPI - General Adult General Chief complaint: Allergic Reaction Stated complaint: UPPER LIP SWELLING PER EMS Time Seen by Provider: 09/11/24 12:40 Source: patient, EMS, RN notes reviewed and old records reviewed Mode of arrival: EMS History of Present Illness ED Provider: Zari Hernández PA-C HPI narrative: 59-year-old male with a past medical history avascular necrosis of left hip, HLD, polysubstance abuse, anxiety, depression, ETOH abuse, pancreatitis, GERD, HTN, presenting to the ED complaining of upper lip swelling x 45 minute [employer]. Also reports generalized fatigue/weakness and lightheadedness/presyncope. Denies recent change in medications, new medications, new foods or exposures including soap, lotion, detergent. Denies SOB, throat closing sensation, CP, headache, focal weakness, room spinning dizziness Related Data Home Medications ?Medication ?Instructions ?Recorded ?Confirmed thiamine HCl (vitamin B1) 100 mg 100 mg PO DAILY 04/26/20 08/02/24 tablet potassium chloride 20 mEq 20 meq PO DAILY 07/29/24 08/02/24 tablet,extended release(part/cryst) (Klor-Con M) Previous Rx's ?Medication ?Instructions ?Recorded blood pressure monitor (Blood #1 ea 05/20/23 Pressure Kit) hydroxyzine HCl 50 mg tablet 50 mg PO BID #180 tabs 07/27/23 fluticasone propionate 50 1 spray intranasal DAILY #16 mL 11/07/23 mcg/actuation nasal spray,suspension gabapentin 300 mg capsule 300 mg PO BID #180 caps 11/08/23 acetaminophen 500 mg tablet 500 mg PO Q6H PRN fever or pain 04/19/24 (Tylenol Extra Strength) #14 tabs lisinopril 5 mg tablet 5 mg PO DAILY #30 tabs 07/21/24 sildenafil 50 mg tablet 50 mg PO DAILY PRN sexual activity 07/21/24 #5 tabs tramadol 50 mg tablet 50 mg PO BID PRN pain #60 tabs 07/21/24 triamcinolone acetonide 0.5 % 1 appl topical BID #30 grams 07/21/24 topical cream cefuroxime axetil 500 mg tablet 500 mg PO BID #10 tabs 07/31/24 magnesium oxide 400 mg (241.3 mg 400 mg PO DAILY #90 tabs 07/31/24 magnesium) tablet (MagOx) metronidazole 500 mg tablet 500 mg PO Q8H #15 tabs 07/31/24 omeprazole 20 mg capsule,delayed 20 mg PO BID@0630,1630 #60 caps 08/03/24 release oseltamivir 75 mg capsule (Tamiflu) 75 mg PO Q12H 5 days #10 caps 08/03/24 clonazepam 1 mg tablet 1 mg PO DAILY anxiety #30 tabs 08/30/24 Allergies Allergy/AdvReac Type Severity Reaction Status Date / Time povidone-iodine Allergy Rash Verified 09/11/24 12:50 Review of Systems Review of Systems: Yes all other systems are reviewed and are negative Constitutional: Constitutional: Reports as per HPI Neurologic: Denies Abnormal speech present [facility] Past Medical History Attestation statement: The following information was validated with the patient. Source: old records reviewed Medical History Hypomagnesemia Blood pressure elevated without history of HTN Colon cancer screening declined Hypertriglyceridemia Hypercholesterolemia Avascular necrosis of bone of left hip Insomnia Polysubstance abuse Anxiety and depression Alcohol abuse History of pancreatitis GERD (gastroesophageal reflux disease) Surgical History History of drainage of abscess H/O total hip arthroplasty Family History Family History Father CAD (coronary artery disease) S/P CABG x 2 Mother Hypertension Osteoarthritis Brother Alive and well Sister Deaf Maternal Grandmother Cancer Maternal Grandfather Dementia Family/Other Alzheimers disease Social History Social History Household Members: Significant Other Housing: Apartment Do you presently have visiting nurse or other home services: No Unable to assess alcohol history related to: Unknown Alcohol intake: current Alcohol intake frequency: 3 or more drinks per day Alcohol type: hard liquor Patient Tobacco Use Status: Former Tobacco user Tobacco use type: Cigarette Years Smoked: 2011 quit Smoked in Last 30 Days: No e-Cigarette/Vaping Use: Never Used Second Hand Smoke Exposure: Yes Use of substances other than those prescribed or required for medical reasons: No Advance Directives: Yes Advance Directives on File: Yes Advance Directives Date on File: 08/01/24 Do you have a plan to hurt others: No Plan service: No Current occupational status: disabled and other Current occupation: right handed. Cognitive needs: No Hearing needs: No Vision needs: No Physical Exam ED Vital Signs: Vital Signs - 24 hr 09/11/24 12:48 09/11/24 13:00 09/11/24 13:02 Temperature 98.0 F Pulse Rate 88 81 86 Respiratory Rate 22 H 18 20 Blood Pressure 96/67 101/64 107/68 Pulse Oximetry 99 Oxygen Delivery Method Room Air 09/11/24 13:05 09/11/24 13:18 09/11/24 14:00 Temperature 98.2 F Pulse Rate 84 81 87 Respiratory Rate 20 16 Blood Pressure 111/70 128/77 Pulse Oximetry 97 100 Oxygen Delivery Method Room Air Room Air BMI result Body Mass Index 19.5 Const General: cooperative, healthy appearing and no acute distress Orientation/consciousness: patient oriented x3 Limitations: no limitations HENMT Other: + upper lip swelling appreciated > right. No erythema or warmth Head: Yes normal to inspection and Yes atraumatic Ears: hearing grossly normal bilaterally General nose exam: Normal external nose present Mouth: tongue normal, no audible dysphonia, no drooling and no muffled voice Throat: Yes tonsils normal, Yes uvula midline, No peritonsillar mass, No uvula laterally displaced and No uvular edema Eyes General: appearance normal, both eyes and all related structures EOM: EOMs intact bilaterally Neck Neck: Yes normal visual inspection and Yes no meningeal signs Resp Effort & Inspection: normal respiratory effort, no respiratory distress and no stridor Auscultation: clear to auscultation bilaterally, no crackles, no rhonchi and no wheezes Cardio Rate: regular rate Heart sounds: S1 normal heart sound present and S2 normal heart sound present GI Inspection: Yes normal to inspection Palpation (GI): Soft to palpation, nontender, no guarding and not rigid Skin Rashes: no rashes Wounds: no wounds Neuro General: patient oriented x3, tone normal, moves all extremities, no meningeal signs, no focal motor deficits and CN's II-XI intact bilaterally Cranial nerves: Yes CN's II-XII intact bilaterally and Yes Bilaterally intact EOM present Cognition (Neuro): normal cognition Speech: No Abnormal speech present Gait exam (Neuro): Normal gait present Motor exam (neuro): 5/5 motor strength present throughout Extrem General: Yes normal to inspection Course Course Course Narrative: -1352-- no leukocytosis. Chronic anemia. Magnesium 1.5 > IV repletion ordered -acute on chronic transaminitis likely from ETOH abuse however will obtain abdomen limited ultrasound. -Troponin 3.7 > will obtain repeat XR chest 1V IMPRESSION: No acute airspace disease. Stable chest. -1420--on re-evaluation entire top lip appears swollen/edematous. No tongue swelling. Tolerating p.o. No respiratory compromise. We will continue to monitor -ethanol 74 US abdomen limited IMPRESSION: Hepatomegaly, mild. No ascites. No hydronephrosis right kidney. > 1630--ED care transferred to [facility] pending repeat troponin and re-evaluation. Anticipated discharge home Medications Administered Discontinued Medications Generic Name Dose Route Start Last Admin Trade Name Freq PRN Reason Stop Dose Admin Diphenhydramine HCl 50 mg 09/11/24 12:48 09/11/24 13:11 Diphenhydramine Hcl 50 Mg/Ml Vial IVPUSH 09/11/24 12:49 50 mg ONCE ONE Administration Famotidine 20 mg 09/11/24 12:48 09/11/24 13:11 Famotidine/Pf 20 Mg/2 Ml Vial IVPUSH 09/11/24 12:49 20 mg ONCE ONE Administration Sodium Chloride 1,000 mls @ 999 mls/hr 09/11/24 13:00 09/11/24 14:37 Ns IV 09/11/24 14:00 Infused .Q1H1M LEVI Infusion Methylprednisolone Sodium Succinate 125 mg 09/11/24 12:48 09/11/24 13:11 Methylprednisolone Sod Succ 125 Mg/2 Ml Vial IVPUSH 09/11/24 12:49 125 mg ONCE ONE Administration Medical Decision Making Medical Decision Making [facility] Narrative: 59-year-old male with a past medical history avascular necrosis of left hip, HLD, polysubstance abuse, anxiety, depression, ETOH abuse, pancreatitis, GERD, HTN, presenting to the ED complaining of upper lip swelling x 45 minute [employer]. Also reports generalized fatigue/weakness and lightheadedness/presyncope. On exam vital signs stable, NAD, nontoxic appearing, upper lip swelling appreciated greater on the right, talking in complete sentences, no respiratory distress, no drooling, no stridor. Lungs CTA. No rash. Concern for Goldy inhibitor induced angioedema (patient has been on Lisinopril x years) vs allergic reaction vs atypical ACS. Rule out metabolic abnormalities. No evidence of anaphylaxis at this time. No airway compromise, no tongue involvement Plan: EKG, labs, UA, orthostatics, CXR, re-evaluate Please refer to course for remaining clinical decision making, interpretation of labs/imaging results, and discussions with consultants and/or family members. Differential Diagnosis Differential Diagnoses: The differential diagnosis associated with the presentation includes As above Admission/Observation Consideration of admission/observation: Escalation of care including admission/observation considered Lab Data MDM Lab Attestation statement: I reviewed the patient's lab results. 09/11/24 13:14 09/11/24 13:14 Labs: Lab Results 09/11/24 09/11/24 Range/Units 13:14 15:04 WBC 4.5 L (4.8-10.8) X10*3/uL RBC 3.43 L (4.60-5.80) X10*6/uL Hgb 10.5 L (14.0-18.0) g/dl Hct 31.0 L (42.0-52.0) % MCV 90.4 (80.0-98.0) fL MCH 30.6 (27.0-33.0) pg MCHC 33.9 (31.0-36.0) g/dl RDW 15.3 (11.0-16.0) % Plt Count 337 D (160-400) X10*3/uL MPV 9.3 L (9.4-12.4) fL Immature Gran % (Auto) 0.4 (0.0-0.4) % Neut % (Auto) 52.7 (45-73) % Lymph % (Auto) 31.9 (20-40) % Tyler % (Auto) 11.9 H (2-11) % Eos % (Auto) 1.1 (0-4) % Baso % (Auto) 2.0 (0-2) % Lymph # (Auto) 1.4 (1.2-4.9) X10*3/uL Tyler # (Auto) 0.5 (0.1-1.2) X10*3/uL Eos # (Auto) 0.1 (0.0-0.4) X10*3/uL Baso # (Auto) 0.1 (0.0-0.2) X10*3/uL Abs Immat Gran (auto) 0.02 (0.00-0.03) X10*3/uL Absolute Neuts (auto) 2.4 (2.0-8.3) x10*3/uL Absolute Nucleated RBC 0.030 H (0.0-0.012) X10*3/uL Nucleated RBC % (auto) 0.7 H (0.0-0.2) /100WBC Sodium 136 (135-145) mmol/L Potassium 3.7 (3.3-5.1) mmol/L Chloride 106 (96-108) mmol/L Carbon Dioxide 21 L (22-29) mmol/L Anion Gap 13 (12-20) BUN 17 H (9-16) mg/dL Creatinine 1.36 (0.5-1.4) mg/dL Estim Creat Clear Calc 37.9 Estimated GFR 54 Random Glucose 104 (60-115) mg/dL Calcium 8.2 L D (8.4-10.2) mg/dL Magnesium 1.5 L (1.6-2.6) mg/dL Total Bilirubin 1.3 H (0.0-1.0) mg/dL Direct Bilirubin 0.6 H (0.0-0.5) mg/dL AST 239 H (5-37) U/L ALT 139 H (0-40) U/L Alkaline Phosphatase 517 H (39-117) U/L Troponin I High Sens 3.7 (<3.5-35.0) ng/L Total Protein 6.8 (6.5-8.0) g/dL Albumin 3.4 L (3.5-5.0) g/dL Urine Color Yellow Urine Appearance Clear Urine pH 7.0 (5.0-9.0) Ur Specific Jeffers 1.010 (1.005-1.025) Urine Protein 30 (1+) H (Neg-Trace) mg/dL Urine Glucose (UA) Negative (Negative) mg/dL Urine Ketones Negative (Negative) mg/dL Urine Blood Negative (Negative) Urine Nitrite Negative (Negative) Ur Leukocyte Esterase Negative (Negative) Urine RBC 0-2 (0-2) /HPF Urine WBC 0-5 (0-5) /HPF Ur Squamous Epith Cells 0-2 (0-2) /HPF Urine Bacteria None Seen (None Seen) Hyaline Casts 3-5 (0-2) /LPF Ethyl Alcohol 74 mg/dL Influenza Type A (PCR) NEGATIVE (Negative) Influenza Type B (PCR) NEGATIVE (Negative) RSV RNA Qual (PCR) NEGATIVE (Negative) SARS-CoV-2 RNA (RT-PCR) NEGATIVE (Negative) Independent Interpretation I performed an independent interpretation of an: EKG Radiology Impression Discussion of test interpretation with radiology: I have reviewed the radiologist's reading. Independent Historian Clinical information obtained from an independent historian. History obtained from or confirmed by: EMS External Record Review External record reviewed: Inpatient record, Office record, Outpatient record, Prior outpatient labs, Prior outpatient radiology, Primary care record and Outside ED record Tests considered The following testing was considered but not selected: As above Prescription Management I considered prescription management with: Other Chronic Conditions Patient?s care impacted by: Hypertension Social Determinants Patient?s care significantly limited by Social Determinants of Health including: Other Social Determinant of Health Discharge Plan Discharge Clinical Impression: Angioedema of lips, Adverse reaction to GOLDY-I (angiotensin-converting enzyme inhibitor) Patient Disposition: Still a Patient Instructions: Angioedema (ED) Additional Instructions: PLEASE STOP TAKING YOUR PRESCRIBED LISINOPRIL You need to have close follow up with your primary care doctor. Call tomorrow morning to make an appointment If you are swelling persists, worsens, you develop any tongue swelling, rash, mouth swelling, shortness of breath, throat closing sensation, oral itching return to the ED IMMEDIATELY Prescriptions: No Action hydroxyzine HCl 50 mg tablet 50 mg PO BID Qty: 180 2RF fluticasone propionate 50 mcg/actuation spray,suspension 1 spray intranasal DAILY Qty: 16 5RF gabapentin 300 mg capsule 300 mg PO BID Qty: 180 2RF omeprazole 20 mg capsule,delayed release(DR/EC) 20 mg PO BID@0630,1630 Qty: 60 0RF oseltamivir [Tamiflu] 75 mg capsule 75 mg PO Q12H 5 Days Qty: 10 0RF clonazepam 1 mg tablet 1 mg PO DAILY Qty: 30 0RF potassium chloride [Klor-Con M20] 20 mEq tablet,ER particles/crystals 20 meq PO DAILY metronidazole 500 mg tablet 500 mg PO Q8H Qty: 15 0RF cefuroxime axetil 500 mg tablet 500 mg PO BID Qty: 10 0RF magnesium oxide [MagOx] 400 mg (241.3 mg magnesium) tablet 400 mg PO DAILY Qty: 90 0RF acetaminophen [Tylenol Extra Strength] 500 mg tablet 500 mg PO Q6H PRN (Reason: fever or pain) Qty: 14 0RF thiamine HCl (vitamin B1) 100 mg tablet 100 mg PO DAILY (DME) blood pressure monitor [Blood Pressure Kit] Kit See Rx Instructions .ROUTE .MEDSUPPLY Qty: 1 0RF Rx Instructions: As directed lisinopril 5 mg tablet 5 mg PO DAILY Qty: 30 3RF tramadol 50 mg tablet 50 mg PO BID PRN (Reason: pain) Qty: 60 3RF triamcinolone acetonide 0.5 % cream 1 appl topical BID Qty: 30 0RF sildenafil 50 mg tablet 50 mg PO DAILY PRN (Reason: sexual activity) Qty: 5 0RF Rx Instructions: administer 30 minutes to 4 hours before activity Referrals: Po,Gillian Cook MD [Primary Care Provider] - 1 day Print Language: Stateless
--- NOTE | 2024-09-11 12:48 | ECG_ITS ---
Test Reason : ALLERGIC REACTION Blood Pressure : */* mmHG Vent. Rate : 77 BPM Atrial Rate : 77 BPM P-R Int : 170 ms QRS Dur : 74 ms QT Int : 462 ms P-R-T Axes : 50 -11 6 degrees QTcB Int : 522 ms Normal sinus rhythm Minimal voltage criteria for LVH, may be normal variant ( R in aVL ) Prolonged QT Abnormal ECG No previous ECGs available Referred By: Zari Hernández Electronically Signed By: CESAR DAI MD
[2024-09-11] MEDS: Famotidine/PF 20 MG/2 ML VIAL IVPUSH (13:11)
[2024-09-11] MEDS: methylPREDNISolone Sod Succ 125 MG/2 ML VIAL IVPUSH (13:11)
[2024-09-11] MEDS: diphenhydrAMINE HCL 50 MG/ML VIAL IVPUSH (13:11)
[2024-09-11] MEDS: 0.9 % Sodium Chloride 1,000 ML 999 ML IV (13:12)
[2024-09-11 13:29] LABS: MANUAL DIFF FLAG NO
[2024-09-11 13:30] LABS: Basophils Absolute Auto 0.1 X10*3/uL (0.0-0.2); Eosinophils Absolute Auto 0.1 X10*3/uL (0.0-0.4); Eosinophils Percent Auto 1.1 % (0-4); Hemoglobin 10.5 g/dl (14.0-18.0); Imm Gran Abs Auto 0.02 X10*3/uL (0.00-0.03); Imm Gran Pct Auto 0.4 % (0.0-0.4); Lymphocytes Absolute Auto 1.4 X10*3/uL (1.2-4.9); Lymphocytes Percent Auto 31.9 % (20-40); Mean Corpuscular HGB Conc 33.9 g/dl (31.0-36.0); Mean Corpuscular Hemoglobin 30.6 pg (27.0-33.0); Mean Corpuscular Volume 90.4 fL (80.0-98.0); Mean Platelet Volume 9.3 fL (9.4-12.4); Monocytes Absolute Auto 0.5 X10*3/uL (0.1-1.2); Monocytes Percent Auto 11.9 % (2-11); NRBC Pct Auto 0.7 /100WBC (0.0-0.2); Neutrophils Absolute Auto 2.4 x10*3/uL (2.0-8.3); Neutrophils Percent Auto 52.7 % (45-73); Platelet Count 337 X10*3/uL (160-400); Red Blood Count 3.43 X10*6/uL (4.60-5.80); Red Cell Distribution Width 15.3 % (11.0-16.0); White Blood Count 4.5 X10*3/uL (4.8-10.8)
[2024-09-11 13:49] LABS: Alanine Aminotransferase 139 U/L (0-40); Albumin Level 3.4 g/dL (3.5-5.0); Alkaline Phosphatase 517 U/L (39-117); Anion Gap 13 (12-20); Aspartate Amino Transferase 239 U/L (5-37); Bilirubin Direct 0.6 mg/dL (0.0-0.5); Bilirubin Total 1.3 mg/dL (0.0-1.0); Blood Urea Nitrogen 17 mg/dL (9-16); Calcium 8.2 mg/dL (8.4-10.2); Carbon Dioxide 21 mmol/L (22-29); Chloride 106 mmol/L (96-108); Creatinine Clr Calc Pharmacy 37.9; Estimated Glomerular Filt Rate 54; Glucose Random 104 mg/dL (60-115); Magnesium 1.5 mg/dL (1.6-2.6); Potassium 3.7 mmol/L (3.3-5.1); Sodium 136 mmol/L (135-145); Total Protein 6.8 g/dL (6.5-8.0)
[2024-09-11 13:50] LABS: Troponin-I High Sensitivity 3.7 ng/L (<3.5-35.0)
[2024-09-11 14:04] LABS: Ethanol 74 mg/dL
[2024-09-11 14:15] LABS: Influenza A PCR NEGATIVE (Negative); Influenza B PCR NEGATIVE (Negative); Resp Syncy Virus RNA Qual PCR NEGATIVE (Negative); SARS COV2 PCR INHOUSE NEGATIVE (Negative)
--- NOTE | 2024-09-11 15:02 | PC.NURSE ---
orthostatics obtained [id number]
[2024-09-11 15:14] LABS: Appearance Urine Clear; Color Urine Yellow; Glucose Urine UA Negative (Negative); Leukocyte Esterase Urine Negative (Negative); Nitrite Urine Negative (Negative); UMIC TRIGGER UACC YES; Urine Blood Negative (Negative); Urine Ketones Negative (Negative); Urine Protein 30 (1+) mg/dL (Neg-Trace)
[2024-09-11 15:22] LABS: Bacteria Urine None Seen (None Seen); RBC Urine 0-2 /HPF (0-2); Squamous Epithelial Cell Urine 0-2 /HPF (0-2); WBC Urine 0-5 /HPF (0-5)
[2024-09-11 17:26] LABS: Troponin-I High Sensitivity < 2.7 ng/L (<3.5-35.0)
== END 2024-09-11 18:07 | disposition home or self-care (01) ==
PROVIDERS: Physician Assistant; Emergency Provider Emergency Medicine Emergency Medical Services; PCP Internal Medicine
DX: R22.0 Localized swelling, mass and lump, head (principal); R94.31 Abnormal electrocardiogram [ECG] [EKG]; R79.89 Other specified abnormal findings of blood chemistry; K13.0 Diseases of lips; R53.1 Weakness; R42 Dizziness and giddiness; T78.3XXA Angioneurotic edema, initial encounter; T44.5X5A Adverse effect of predominantly beta-adrenoreceptor agonists, initial encounter; Y92.9 Unspecified place or not applicable; Z79.899 Other long term (current) drug therapy; Z03.818 Encounter for observation for suspected exposure to other biological agents ruled out; Z51.81 Encounter for therapeutic drug level monitoring; Z87.891 Personal history of nicotine dependence
CPT/HCPCS: 0241U; 36415; 71045; 76705; 80048; 80076; 80307; 81001; 83735; 84484; 85025; 93005; 96361; 96374; 96375; 99284; 99285; J1200; J2919

== ENCOUNTER → 2024-09-11 12:48 | Outpatient (BNV) | payer MEDICARE, MEDICAID, SELFPAY | PROVIDERS: Emergency Provider Emergency Medicine Emergency Medical Services; PCP Internal Medicine; Visit Provider Internal Medicine Cardiovascular Disease | DX: R94.31 Abnormal electrocardiogram [ECG] [EKG] (principal); T78.40XA Allergy, unspecified, initial encounter | CPT/HCPCS: 93010 ==

== ENCOUNTER → 2024-09-11 12:48 | Outpatient (BNV) | payer MEDICARE, MEDICAID, SELFPAY | PROVIDERS: Emergency Provider Emergency Medicine Emergency Medical Services; PCP Internal Medicine; Visit Provider Radiology Diagnostic Radiology | DX: R74.01 Elevation of levels of liver transaminase levels (principal); R53.1 Weakness | CPT/HCPCS: 71045; 76705 ==

== ENCOUNTER 2024-11-17 10:17 | Outpatient (REF) | payer MEDICARE, MEDICAID, SELFPAY ==
--- OUTSIDE RECORDS SUMMARY | 2024-11-17 10:56 | XMS_ITS | Clinical Summary ---
Author Organization [employer] [facility] Address [address] [place] [address] Care Team Providers Care Prover Name Role Phone Unavailable Primary Care Provider Unavailabl e Immunizations Immunization Administration Dates Next Due Moderna Covid-19 Vaccine [...] Panel 1966 SDOH Screening 1966 Sigmoidoscopy 1966 Disability Screening 1966 Alcohol/Substance Use Screening 1978 Tobacco Screening [...] older (1 - 1-dose 75+ series) 2041 HIB Vaccines Aged Out No longer eligi ble based on patient's age to complete this topic HPV Vaccines Aged Out No longer eligi ble based on patient's age to complete this topic IPV Vaccines Aged Out No longer eligi ble based on patient's age to complete this topic Meningococcal B Vaccine Aged Out No l onger eligible based on patient's age to complete this topic Meningococcal Vaccine Aged Out No barbara andie eligible based on patient's age to complete this topic RSV under 20 months Aged Out No longe r eligible based on patient's age to complete this topic Rotavirus Vaccines Aged Out No longer eligible based on patient's age to complete this topic Insurance MEDICARE [facility] STANDARD
== END 2024-11-17 10:18 | disposition home or self-care (01) ==
LOC: HO.LAB 10:17
PROVIDERS: PCP Internal Medicine; Visit Provider Internal Medicine
DX: K21.9 Gastro-esophageal reflux disease without esophagitis (principal); E78.00 Pure hypercholesterolemia, unspecified; F41.1 Generalized anxiety disorder; M87.052 Idiopathic aseptic necrosis of left femur; I10 Essential (primary) hypertension; D64.9 Anemia, unspecified; N28.9 Disorder of kidney and ureter, unspecified
CPT/HCPCS: 99212

== ENCOUNTER 2024-11-17 14:15 | Outpatient (AMB) | payer MEDICARE, MEDICAID, SELFPAY ==
[2024-11-17 14:20] VITALS: BP 122/68; PULSE 77; O2SAT 98; BMI 23.4
--- NOTE | 2024-11-17 14:20 | A.OFFPC_ITS ---
Vital Signs 11/17/24 14:20 Height 5 ft Weight 120 lb BMI 23.4 BP 122/68 Blood Pressure Location Lt brachial Position Sitting Pulse 77 Pulse Source Pulse Oximeter Pulse Oximetry (%) 98 Oxygen Delivery Method Room Air Intake Visit Reasons: PRADIP Allergies povidone-iodine Allergy (Verified 11/17/24 14:21) Rash Medication List - Last Reconciled 11/17/24 by Gillian Dupree MD acetaminophen (Tylenol Extra Strength) 500 mg PO Q6H PRN blood pressure monitor (Blood Pressure Kit) As directed cefuroxime axetil 500 mg PO BID clonazepam 1 mg PO DAILY fluticasone propionate 50 mcg/actuation 1 spray intranasal DAILY gabapentin 300 mg PO BID hydroxyzine HCl 50 mg PO BID lisinopril 5 mg PO DAILY magnesium oxide (MagOx) 400 mg PO DAILY metronidazole 500 mg PO Q8H omeprazole 20 mg PO BID@0630,1630 oseltamivir (Tamiflu) 75 mg PO Q12H 5 days potassium chloride ER (Klor-Con M) 20 mEq PO DAILY sildenafil 50 mg PO DAILY PRN thiamine HCl (vitamin B1) 100 mg PO DAILY tramadol 50 mg PO BID PRN triamcinolone acetonide 0.5% 1 appl topical BID Tobacco use date assessed: 08/02/24 Dental Screening Dental Screen Date: 07/21/24 HPI PRADIP HPI Details PAtient states not allergic to CHRISTIANO I but was given the wrong med by mom and so taking lisinopril with no problem PFSH Medical History Hypomagnesemia Blood pressure elevated without history of HTN Colon cancer screening declined Hypertriglyceridemia Hypercholesterolemia Avascular necrosis of bone of left hip Insomnia Polysubstance abuse Anxiety and depression Alcohol abuse History of pancreatitis GERD (gastroesophageal reflux disease) Surgical History History of drainage of abscess H/O total hip arthroplasty Family History Father CAD (coronary artery disease) S/P CABG x 2 Mother Hypertension Osteoarthritis Brother Alive and well Sister Deaf Maternal Grandmother Cancer Maternal Grandfather Dementia Family/Other Alzheimers disease Social History Household Members: Significant Other Housing: Apartment Do you presently have visiting nurse or other home services: No Unable to assess alcohol history related to: Unknown Alcohol intake: current Alcohol intake frequency: 3 or more drinks per day Alcohol type: hard liquor Patient Tobacco Use Status: Former Tobacco user Tobacco use type: Cigarette Years Smoked: 2011 quit e-Cigarette/Vaping Use: Never Used Second Hand Smoke Exposure: Yes Advance Directives Date on File: 08/01/24 service: No Current occupational status: disabled and other Current occupation: right handed. Cognitive needs: No Hearing needs: No Vision needs: No Questionnaire PHQ-9 Over the last 2 weeks, how often have you been bothered by any of the following problems? 1. Little interest or pleasure in doing things: not at all 2. Feeling down, depressed, or hopeless: not at all 3. Trouble falling or staying asleep, or sleeping too much: not at all 4. Feeling tired or having little energy: not at all 5. Poor appetite or overeating: not at all 6. Feeling bad about yourself - or that you are a failure or have let yourself or your family down: not at all 7. Trouble concentrating on things, such as reading the newspaper or watching television: not at all 8. Moving or speaking so slowly that other people could have noticed. Or the opposite - being so fidgety or restless that you have been moving around a lot more than usual: not at all 9. Thoughts that you would be better off or of hurting yourself in some way: not at all Total score: 0 Source: Developed by Drs. Andrae Del Rio, Jennifer Ahmadi, Zeferino Villarreal and colleagues, with an educational medardo from [employer]. Thrive Questionnaire Date Thrive assessed: 07/30/24 I am a: Patient What is your living situation today?: I have a steady place to live Within the past 12 months, did the food you bought not last and you didn't have the money to get more?: Never true Within the past 12 months, did you worry whether your food would run out before you got money to buy more?: Never true Do you have trouble paying for medicines?: No Do you have trouble getting transportation to medical appointments?: No Do you have trouble paying your heating and electricity bill?: No Do you have trouble taking care of your child, family member or friend?: No Do you have trouble with day-to-day activities such as bathing, preparing meals, shopping, managing finances, etc.?: No Are you currently unemployed and looking for a job?: No Are you interested in more education?: No Please select the resources that you would like help with: None Currently or been in a relationship where the following occur: No concerns reported THRIVE Score: 0 AUDIT C Alcohol Use Questionnaire (AUDIT-C) 1. How often do you have a drink containing alcohol?: Never Total Score: 0 PRADIP-7 AMB Questionnaire PRADIP-7 Date PRADIP - 7 assessed: 07/21/24 Feeling nervous, anxious, or on edge: 0 = Not at all Not being able to stop or control worryin = Not at all Worrying too much about different things: 0 = Not at all Trouble relaxin = Not at all Being so restless that it is hard to sit still: 0 = Not at all Becoming easily annoyed or irritable: 0 = Not at all Feeling afraid as if something awful might happen: 0 = Not at all Total PRADIP-7 score (0-4 normal; 5-9 mild; 10-14 moderate; 15-21 severe): 0 Source: Developed by Drs. Andrae Del Rio, Jennifer Ahmadi, Zeferino Villarreal and colleagues, with an educational medardo from [employer]. Physical exam (Primary Care) Vital Signs: Last Vital Signs Pulse 77 11/17/24 14:20 BP 122/68 11/17/24 14:20 Pulse Ox 98 11/17/24 14:20 Oxygen Delivery Method Room Air 11/17/24 14:20 BMI result Body Mass Index 23.4 Tobacco/Smoking Status: Tobacco use Status Tobacco use date assessed 08/02/24 11/17/24 14:21 Patient Tobacco Use Status Former Tobacco user 11/17/24 14:21 Tobacco use type Cigarette 11/17/24 14:21 e-Cigarette/Vaping Use Never Used 11/17/24 14:21 PHQ-9: PHQ-9 Score PHQ-9: Total score 0 11/17/24 14:29 Thrive Assessment: Date of Thrive Assessment Date Thrive assessed 07/30/24 11/17/24 14:21 Currently or been in a relationship where the following occur: No concerns reported Const General: alert; No acute distress Eyes Conjunctivae: conjunctivae normal Resp Auscultation: clear to auscultation bilaterally Cardio Rate: regular rate Rhythm: regular rhythm GI Inspection: Yes normal to inspection Extrem General: Yes normal to inspection and No edema Coding Level of Care Code Complex EM visit Add On G2211 Diagnoses Gastroesophageal reflux disease, unspecified whether esophagitis present K21.9 Esophagitis presence: esophagitis presence not specified Hypercholesterolemia E78.00 Generalized anxiety disorder F41.1 Avascular necrosis of bone of left hip M87.052 Hypertension I10 Anemia D64.9 Renal insufficiency N28.9 Assessment & Plan Assessment & Plan (1) GERD (gastroesophageal reflux disease): Code(s): K21.9 - Gastro-esophageal reflux disease without esophagitis Category: Medical Qualifiers: Esophagitis presence: esophagitis presence not specified Qualified Code(s): K21.9 - Gastro-esophageal reflux disease without esophagitis Plan: Avoid the foods that causes that usually spicy foods, tomato products, juices, coffee, soda and foods that your sensitive to. After eating do not lie down, allow 3-4 hours before in lie down. And keep the head of bed above 30 degrees to avoid the acid from going up. on omeprazole (2) Hypercholesterolemia: Code(s): E78.00 - Pure hypercholesterolemia, unspecified Category: Medical Plan: Avoid fried foods, chicken skin, eggs, butter margarine, pastries and meat. Be it pork or beef they have a lot of cholesterol LDL goal of less than 130 and triglyceride of less than 150 (3) Generalized anxiety disorder: Comment: decline counselling referral Code(s): F41.1 - Generalized anxiety disorder Category: Medical Plan: continue with present therapy as needed (4) Avascular necrosis of bone of left hip: Comment: March 2018 left hip arthroplasty August 2018 Dr. Beyer Code(s): M87.052 - Idiopathic aseptic necrosis of left femur Category: Medical Plan: patient has followed up with orthopedics x-ray shows arthritis (5) Hypertension: Code(s): I10 - Essential (primary) hypertension Category: Medical Plan: Continue with blood pressure medication. Decrease salt intake and exercise on lisinopril 5 mg once a day (6) Anemia: Code(s): D64.9 - Anemia, unspecified Category: Medical Plan: advised to continue to monitor (7) Renal insufficiency: Code(s): N28.9 - Disorder of kidney and ureter, unspecified Category: Medical Plan: keep well hydrated Plan History of Present Illness The patient is a 59-year-old male presenting with a follow-up visit to manage chronic conditions and evaluate recent symptoms. He underwent a left hip arthroplasty in 2018 due to avascular necrosis; recent X-rays show moderate osteoarthritis in the right hip. There are no signs of hardware loosening in the left hip. The patient experienced angioedema after using lisinopril for hypertension and stopped its use following medical advice. He has a recent history of colitis with associated anemia and leukopenia. Elevated liver function tests and low magnesium levels were noted, although electrolytes remained stable. The patient is actively managing GERD and generalized anxiety disorder and has challenges in managing his hypercholesterolemia due to high triglycerides. Additionally, he has concerns regarding erectile dysfunction, possibly aggravated by stress or medication, with no reported alcohol use. Health Maintenance - Regular monitoring of cholesterol, with the goal of reducing LDL under 130 mg/dL and triglycerides below 150 mg/dL. - Blood pressure management with prior lisinopril discontinued due to angioedema. - Engagement in lifestyle modifications as discussed, including hydration and sodium intake. Social History - No reported alcohol use. - Recent discussions about erectile dysfunction possibly influenced by stress and medication. Review of Systems - Musculoskeletal: Reports increased pain in left hip area. - Gastrointestinal: Reports diarrhea, previously diagnosed as colitis. - Cardiovascular: Denies current chest pain; previously curtailed lisinopril due to angioedema. - Hematologic: Diagnosis of anemia with recent leukopenia; no recent infections noted. - Neurologic: Denies any recent headaches or seizures. - Psychiatric: Reports anxiety symptoms. Physical Exam Results - Labs: Anemia with hemoglobin at 10.5 g/dL; leukopenia with WBC at 4.5 x 10^ 3/mcL; elevated liver function tests; low magnesium level. - Imaging: Moderate osteoarthritis of the right hip; no hardware loosening in the left hip prosthesis. Plan The patient's management includes ongoing hypertension control using alternatives to lisinopril, GERD management with omeprazole, and lipid monitoring to adjust lifestyle interventions. Regular testing and modifications may address hepatic and electrolyte imbalances, notably elevated liver enzymes and low magnesium. Anemia and leukopenia require close observation, potentially linked to dietary deficiencies or treatment side effects. Anxiety management remains essential, factoring in stress-related erectile dysfunction concerns. Hip osteoarthritis is under watchful orthopedic care, with proactive monitoring for symptom progression. Patient was informed and verbally consented to the use of an ambient scribe for clinic note documentation during this visit. Discussion Notes I discussed with the patient his current health status, emphasizing adherence to prescribed management strategies specifically controlling hypertension after stopping lisinopril. The focus remained on addressing GERD and hypercholesterolemia, noting the importance of regular follow-up blood tests to gauge therapeutic effectiveness and potential adjustments. I highlighted lifestyle considerations, including diet and exercise, integral to managing lipid levels. Concerns with anemia and leukopenia included monitoring parameters within upcoming tests. We reviewed his anxiety management, considering its contribution to stress impacting sexual function, ensuring medication review for contributory effects. I advised return precautions and future visits to maintain thorough oversight of evolving health needs. Patient Instructions - Continue prescribed medications, including omeprazole for GERD. - Commit to dietary changes and regular exercise to aid cholesterol management. - Schedule and attend follow-up blood work to monitor anemia and leukopenia. - Hydrate and monitor blood pressure regularly. - Report any worsening hip pain or new symptoms immediately. - Follow recommendations for anxiety control and stress reduction strategies. - Discuss any new medication effects or health concerns during future appointments. Orders: Orders Complete Blood Count Auto Diff Today I10 - Essential (primary) hypertension Free T4 (Free Thyroxine) Today I10 - Essential (primary) hypertension Vitamin B12 and Folate Today I10 - Essential (primary) hypertension Lipid Panel Today E78.00 - Pure hypercholesterolemia, unspecified, I10 - Essential (primary) hypertension Comprehensive Met. Panel Today N28.9 - Disorder of kidney and ureter, unspecified UA CC w/rflx Micro + Cult Today N28.9 - Disorder of kidney and ureter, unspecified, R30.0 - Dysuria Thyroid Stimulating Hormone Today I10 - Essential (primary) hypertension Magnesium Today I10 - Essential (primary) hypertension US abdomen complete Today I10 - Essential (primary) hypertension, R79.89 - Other specified abnormal findings of blood chemistry Medications: Changed From sildenafil administer 30 minutes to 4 hours before activity 50 mg PO DAILY PRN 5 tabs 0RF sexual activity N52.9 - Male erectile dysfunction, unspecified To sildenafil administer 30 minutes to 4 hours before activity 100 mg PO DAILY PRN 14 tabs 3RF sexual activity N52.9 - Male erectile dysfunction, unspecified Refilled sildenafil administer 30 minutes to 4 hours before activity 100 mg PO DAILY PRN 14 tabs 3RF sexual activity N52.9 - Male erectile dysfunction, unspecified Discontinued oseltamivir (Tamiflu) Discontinued Reason: Patient Completed Course 75 mg PO Q12H 5 days 10 caps 0RF
== END 2024-11-17 14:42 | disposition home or self-care (01) ==
LOC: HO.HMCH 14:16
PROVIDERS: PCP Internal Medicine; Visit Provider Internal Medicine
DX: K21.9 Gastro-esophageal reflux disease without esophagitis (principal); M87.052 Idiopathic aseptic necrosis of left femur; E78.00 Pure hypercholesterolemia, unspecified; F41.1 Generalized anxiety disorder; I10 Essential (primary) hypertension; D64.9 Anemia, unspecified; N28.9 Disorder of kidney and ureter, unspecified

== ENCOUNTER 2024-12-15 09:44 | Outpatient (REF) | payer MEDICARE, MEDICAID, SELFPAY ==
--- NOTE | ~2024-12-15 | US_ITS ---
CLINICAL HISTORY: R79.89 - Other specified abnormal findings of blood chemistry US abdomen limited Comparison: None provided Findings: The visualized pancreas is normal. The aorta and inferior vena cava are normal caliber. Echogenic liver measuring 15.9 cm in length. There is no intrahepatic bile duct dilatation. The common duct is 4 mm in diameter. The gallbladder is normal. There is no sonographic Moon sign. The main portal vein is antegrade. The right kidney is 9.0 cm in length. No ascites. IMPRESSION: 1. Mild hepatic steatosis. This document has been electronically signed by: Cristina Curtis MD on 12/16/2024 08:13:29
== END 2024-12-15 09:45 | disposition home or self-care (01) ==
LOC: HO.HMGCX 09:44
PROVIDERS: PCP Internal Medicine; Visit Provider Internal Medicine
DX: R79.89 Other specified abnormal findings of blood chemistry (principal); I10 Essential (primary) hypertension
CPT/HCPCS: 76705

== ENCOUNTER → 2024-12-15 09:47 | Outpatient (BNV) | payer MEDICARE, MEDICAID, SELFPAY | PROVIDERS: PCP Internal Medicine; Visit Provider Radiology Diagnostic Radiology | DX: K76.0 Fatty (change of) liver, not elsewhere classified (principal) | CPT/HCPCS: 76705 ==

== ENCOUNTER 2025-01-04 12:57 | Outpatient (REF) | payer MEDICARE, MEDICAID, SELFPAY ==
--- NOTE | ~2025-01-04 | XR_ITS ---
EXAMINATION: XR PELVIS CLINICAL INFORMATION: M25.559 - Pain in unspecified hip COMPARISON: 09/04/2024. TECHNIQUE: AP view of the pelvis. FINDINGS: There has been a total left hip arthroplasty. Femoral, and acetabular components are well seated, in anatomic alignment. No periprosthetic lucency, subsidence, or complication. The pelvis appears intact. No bone lesions. The right hip joint demonstrates only minimal osteoarthrosis. The sacrum appears intact. The SI joints appear normal. There are spondylitic changes in the lower lumbar spine. No soft tissue abnormalities. XR/XR pelvis 1-2V IMPRESSION: 1. Intact pelvis and right hip. 2. Left hip arthroplasty without complication. Electronically signed by: Chris Rodrigues MD 01/04/2025 02:38 PM EDT
--- OUTSIDE RECORDS SUMMARY | 2025-01-04 13:24 | XMS_ITS | Clinical Summary ---
Author Organization [employer] [facility] Address [address] [place] [address] Care Team Providers Care Equipment Maintenance Tech Name Role Phone Unavailable Primary Care Provider [...] 2024 03/18/2023, 07/13/2022, 11/16/2020, Additional history exists DTaP/Tdap/Td Vaccines (2 - Td or Tdap) 10/25/2024 10/25/2014 Influenza Vaccine (#1) 2025 3, 02/25/2021, 06/05/2020, Additional history exists RSV Patients and Patients Aged 60 years [...] age to complete this topic Insurance MEDICARE [facility] STANDARD
== END 2025-01-04 12:58 | disposition home or self-care (01) ==
LOC: HO.HOSX 12:57
PROVIDERS: Visit Provider Orthopaedic Surgery
DX: M54.50 Low back pain, unspecified (principal); R29.898 Other symptoms and signs involving the musculoskeletal system
CPT/HCPCS: 72170; 99212

== ENCOUNTER 2025-01-04 14:05 | Outpatient (AMB) | payer MEDICARE, MEDICAID, SELFPAY ==
[2025-01-04 14:26] VITALS: BMI 23.4
--- NOTE | 2025-01-04 14:26 | A.OFFVIS_ITS ---
Vital Signs 01/04/25 14:26 Height 5 ft Weight 120 lb BMI 23.4 Intake Visit Reasons: OV-Left Hip-increase pain limited weight bearing Intake Note: Jose is a 59 year old male who presents today as a new patient with complaints of left hip pain. He has been seen previously in the office in 2020 as he has history of Left ANTHONY 08/30/2018 w/ NE. Patient reports that he has had an onset of right hip pain that is described as a pinching or cramping feeling. His pain radiates down the leg to the foot and causes his foot to feel numb. Pain is worse at night. He denies injury. Takes Tylenol with minimal relief. Allergies povidone-iodine Allergy (Verified 11/17/24 14:21) Rash HPI HPI OV-Left Hip-increase pain limited weight bearing: Details: Jose is a 59 year old male who presents today as a new patient with complaints of left hip pain. He has been seen previously in the office in 2020 as he has history of Left ANTHONY 08/30/2018 w/ NE. Patient reports that he has had an onset of right hip pain that is described as a pinching or cramping feeling. His pain radiates down the leg to the foot and causes his foot to feel numb. Pain is worse at night. He denies injury. Takes Tylenol with minimal relief. He states that he feels fine when he has his hips flexed but when he stands up straight he has difficulty walking and he is not sleeping at night because of the radiating numbness and tingling. This is a sensation he describes as extending from his buttock down his lateral thigh and into his foot. [facility] Medical History Hypomagnesemia Blood pressure elevated without history of HTN Colon cancer screening declined Hypertriglyceridemia Hypercholesterolemia Avascular necrosis of bone of left hip Insomnia Polysubstance abuse Anxiety and depression Alcohol abuse History of pancreatitis GERD (gastroesophageal reflux disease) Surgical History History of drainage of abscess H/O total hip arthroplasty Family History Father CAD (coronary artery disease) S/P CABG x 2 Mother Hypertension Osteoarthritis Brother Alive and well Sister Deaf Maternal Grandmother Cancer Maternal Grandfather Dementia Family/Other Alzheimers disease Social History Household Members: Significant Other Housing: Apartment Do you presently have visiting nurse or other home services: No Unable to assess alcohol history related to: Unknown Alcohol intake: current Alcohol intake frequency: 3 or more drinks per day Alcohol type: hard liquor Patient Tobacco Use Status: Former Tobacco user Tobacco use type: Cigarette Years Smoked: 2010 quit e-Cigarette/Vaping Use: Never Used Second Hand Smoke Exposure: Yes Advance Directives Date on File: 08/01/24 service: No Current occupational status: disabled and other Current occupation: right handed. Cognitive needs: No Hearing needs: No Vision needs: No Physical Exam Vital Signs: BMI result Body Mass Index 23.4 Extrem Other: On exam his left hip is moving comfortably and without any pain. Walks without antalgia and with a negative Trendelenburg gait. He has no excessive clonus. Results Reviewed Results Reviewed: I personally reviewed relevant radiographs. Left ANTHONY in expected post operative position with no hardware complications or evidence of loosening Assessment & Plan Assessment & Plan (1) Low back pain potentially associated with radiculopathy: Code(s): M54.50 - Low back pain, unspecified Category: Medical Plan: This is a 59-year-old gentleman with numbness and tingling radiating down his leg that prevents him sleeping at night and he feels weak with ambulation. He denies bowel and bladder dysfunction. An MRI of his lumbar spine was ordered. (2) Transient left leg weakness: Code(s): R29.898 - Other symptoms and signs involving the musculoskeletal system Category: Medical Plan: I can not reproduce any weakness but he feels like his leg will not hold him and he complains of numbness tingling burning and electricity emanating down his entire leg. Orders: Orders MR lumbar spine wo con Today M54.50 - Low back pain, unspecified, R29.898 - Other symptoms and signs involving the musculoskeletal system XR pelvis 1-2V Today M25.559 - Pain in unspecified hip Coding Level of Care Code Est Pt Level 4 (39225) Diagnoses Low back pain potentially associated with radiculopathy M54.50 Transient left leg weakness R29.898
== END 2025-01-04 15:47 | disposition home or self-care (01) ==
LOC: HO.HOS 14:06
PROVIDERS: PCP Internal Medicine; Visit Provider Orthopaedic Surgery
DX: M54.50 Low back pain, unspecified (principal); R29.898 Other symptoms and signs involving the musculoskeletal system
CPT/HCPCS: 99214

== ENCOUNTER → 2025-01-04 14:18 | Outpatient (BNV) | payer MEDICARE, MEDICAID, SELFPAY | PROVIDERS: Visit Provider Radiology Diagnostic Radiology | DX: M25.552 Pain in left hip (principal); Z96.642 Presence of left artificial hip joint | CPT/HCPCS: 72170 ==

== ENCOUNTER 2025-01-21 09:42 | Outpatient (REF) | payer MEDICARE, MEDICAID, SELFPAY ==
--- NOTE | ~2025-01-21 | MR_ITS ---
CLINICAL HISTORY: R29.898 - Other symptoms and signs involving the musculoskeletal system Exam: MRI lumbar spine without IV contrast Comparison: None Findings: 4 [id number] lumbar-type vertebral bodies, L5 sacralization with rudimentary L5-S1 disc. Lumbar spine alignment is normal. No acute fracture, osseous lesion or suspicious bone marrow signal. Small Schmorl's nodes of the included lower thoracic spine. Multilevel prevertebral osteophytes. Conus medullaris terminates at T12, normal morphology. Paraspinal musculature, included abdominopelvic contents are unremarkable. T11-12: Disc height loss and mild diffuse annular disc bulge. No central canal stenosis, mild right foraminal narrowing. No left foraminal narrowing. T12-L1: Normal disc. No central canal stenosis or foraminal narrowing. Normal facets. L1-2: Minimal diffuse annular disc bulge. Small facet joint effusion bilaterally. No central canal stenosis. Mild left foraminal narrowing. No right foraminal narrowing. L2-3: Mild disc height loss, posterior annular fissure and diffuse annular disc bulge, 2-3 mm posteriorly, mild central canal stenosis with AP diameter of the thecal sac 6-7 mm. Mild right worse than left foraminal narrowing. Bilateral facet arthrosis and facet joint effusion. L3-4: Mild disc height loss and diffuse annular disc bulge. Mild central canal stenosis. Mild left and moderate right foraminal narrowing, the disc is mildly compressing on the right exiting nerve root. Facet arthrosis and joint effusion bilaterally. L4-5: Mild disc height loss and diffuse annular disc bulge, more conspicuous focal bulge at the left foraminal region, no central canal stenosis. Mild right and moderate left foraminal narrowing, the disc appears compressing on the left exiting nerve root. Bilateral facet arthrosis, facet joint effusion bilaterally. L5-S1: Rudimentary disc is normal. No central canal stenosis or foraminal narrowing. Mild facet arthrosis. Impression: 1. L5 sacralization. 2. Multilevel degenerative spondylosis of lumbar spine, as detailed above. This document has been electronically signed by: Yudelka Barbosa MD on 01/22/2025 16:57:25
--- OUTSIDE RECORDS SUMMARY | 2025-01-21 09:46 | XMS_ITS | Clinical Summary ---
Author Organization [employer] [facility] Address [address] [place] [address] Care Team Providers Care Bench Assembler Electrical Name Role Phone Unavailable Primary Care Provider [...] age to complete this topic Insurance MEDICARE [facility] STANDARD
== END 2025-01-21 09:43 | disposition home or self-care (01) ==
LOC: HO.MRI 09:42
PROVIDERS: PCP Internal Medicine; Visit Provider Orthopaedic Surgery
DX: R29.898 Other symptoms and signs involving the musculoskeletal system (principal); M54.50 Low back pain, unspecified
CPT/HCPCS: 72148

== ENCOUNTER → 2025-01-21 09:51 | Outpatient (BNV) | payer MEDICARE, MEDICAID, SELFPAY | PROVIDERS: PCP Internal Medicine; Visit Provider Radiology Diagnostic Radiology | DX: M47.896 Other spondylosis, lumbar region (principal) | CPT/HCPCS: 72148 ==

== ENCOUNTER 2025-01-23 08:27 | Outpatient (REF) | payer MEDICARE, MEDICAID, SELFPAY ==
--- OUTSIDE RECORDS SUMMARY | 2025-01-23 08:38 | XMS_ITS | Clinical Summary ---
Author Organization [employer] [facility] Address [address] [place] [address] Care Team Providers Care Mechanical Design Technician Name Role Phone Unavailable Primary Care Provider [...] age to complete this topic Insurance MEDICARE [facility] STANDARD
[2025-01-23 08:46] LABS: MANUAL DIFF FLAG NO
[2025-01-23 09:14] LABS: Hematocrit 37.7 % (42.0-52.0); Hemoglobin 13.0 g/dl (14.0-18.0); Imm Gran Abs Auto 0.01 X10*3/uL (0.00-0.03); Imm Gran Pct Auto 0.2 % (0.0-0.4); Lymphocytes Absolute Auto 2.4 X10*3/uL (1.2-4.9); Mean Corpuscular HGB Conc 34.5 g/dl (31.0-36.0); Mean Corpuscular Hemoglobin 31.8 pg (27.0-33.0); Mean Corpuscular Volume 92.2 fL (80.0-98.0); NRBC Abs Auto 0.000 X10*3/uL (0.0-0.012); NRBC Pct Auto 0.0 /100WBC (0.0-0.2); Platelet Count 351 X10*3/uL (160-400); Red Blood Count 4.09 X10*6/uL (4.60-5.80); White Blood Count 4.6 X10*3/uL (4.8-10.8)
[2025-01-23 09:31] LABS: INTERNATIONAL NORM RATIO 1.0 (0.9-1.1); Partial Thromboplastin Time 30.5 SEC (26.7-34.1); Prothrombin Time 10.9 SEC (10.9-12.4)
[2025-01-23 10:08] LABS: Free T4 (Free Thyroxine) 1.04 ng/dL (0.71-1.85); Thyroid Stimulating Hormone 1.43 uIU/mL (0.32-4.0)
[2025-01-23 10:11] LABS: Folate 12.8 ng/mL (> or = 4.0); Vitamin B12 512 pg/mL (200-900)
[2025-01-23 10:28] LABS: Alanine Aminotransferase 46 U/L (0-40); Albumin Level 4.2 g/dL (3.5-5.0); Alkaline Phosphatase 523 U/L (39-117); Aspartate Amino Transferase 126 U/L (5-37); Blood Urea Nitrogen 9 mg/dL (9-16); Calcium 9.2 mg/dL (8.4-10.2); Cholesterol 152 mg/dL (<200); Estimated Glomerular Filt Rate > 60; HDL Cholesterol 43 mg/dL (>40); Total Protein 7.5 g/dL (6.5-8.0); Triglycerides 318 mg/dL (<150)
[2025-01-23 10:29] LABS: Anion Gap 11 (12-20); Carbon Dioxide 30 mmol/L (22-29); Chloride 102 mmol/L (96-108); Potassium 3.2 mmol/L (3.3-5.1); Sodium 140 mmol/L (135-145)
[2025-01-23 10:30] LABS: Magnesium 1.2 mg/dL (1.6-2.6)
== END 2025-01-23 08:28 | disposition home or self-care (01) ==
LOC: HO.LAB 08:27
PROVIDERS: PCP Internal Medicine; Visit Provider Internal Medicine
DX: I10 Essential (primary) hypertension (principal); R23.3 Spontaneous ecchymoses; E78.00 Pure hypercholesterolemia, unspecified; N28.9 Disorder of kidney and ureter, unspecified
CPT/HCPCS: 36415; 80053; 80061; 82607; 82746; 83735; 84439; 84443; 85025; 85610; 85611; 85730; 85732

== ENCOUNTER 2025-01-24 11:09 | Outpatient (REF) | payer MEDICARE, MEDICAID, SELFPAY ==
[2025-01-24 11:41] LABS: Appearance Urine Clear; Glucose Urine UA Negative (Negative); PH 6.5 (5.0-9.0); Specific Gravity - Urine 1.015 (1.005-1.025)
--- OUTSIDE RECORDS SUMMARY | 2025-01-24 11:57 | XMS_ITS | Clinical Summary ---
Author Organization [employer] [facility] Address [address] [place] [address] Care Team Providers Care Unattended Ground Sensor Specialist Name Role Phone Unavailable Primary Care Provider [...] age to complete this topic Insurance MEDICARE [facility] STANDARD
== END 2025-01-24 11:10 | disposition home or self-care (01) ==
LOC: HO.LNP 11:09
PROVIDERS: Visit Provider Internal Medicine
DX: R30.0 Dysuria (principal); N28.9 Disorder of kidney and ureter, unspecified
CPT/HCPCS: 81003

== ENCOUNTER 2025-02-07 10:02 | Outpatient (AMB) | payer MEDICARE, MEDICAID, SELFPAY ==
[2025-02-07 11:36] VITALS: BP 140/90; PULSE 88; RESP 18; TEMP 36.1; O2SAT 96; BMI 22.9
--- NOTE | 2025-02-07 11:36 | MHC.PC.OV ---
Vital Signs 02/07/25 11:36 Height 5 ft Weight 117 lb 8 oz BMI 22.9 BP 140/90 H Blood Pressure Location Lt brachial Position Sitting Respiration 18 Pulse 88 Pulse Source Pulse Oximeter Temp 96.9 F Temp Source Temporal Artery Scan Pulse Oximetry (%) 96 Oxygen Delivery Method Room Air Intake Visit Reasons: Multiple Concerns Customer Service Advocate Required: No Accompanied by: Self / Same As Patient Allergies povidone-iodine Allergy (Verified 02/07/25 11:51) Rash Tobacco use date assessed: 02/07/25 Dental Screening Dental Screen Date: 02/07/25 Did you have a dental visit in the last 12 months?: No Did you have a dental problem in the last 6 months where you did not have access to dental care?: No Was dental information given to patient?: No PFSH Medical History Hypomagnesemia Blood pressure elevated without history of HTN Colon cancer screening declined Hypertriglyceridemia Hypercholesterolemia Avascular necrosis of bone of left hip Insomnia Polysubstance abuse Anxiety and depression Alcohol abuse History of pancreatitis GERD (gastroesophageal reflux disease) Surgical History History of drainage of abscess H/O total hip arthroplasty Family History Father CAD (coronary artery disease) S/P CABG x 2 Mother Hypertension Osteoarthritis Brother Alive and well Sister Deaf Maternal Grandmother Cancer Maternal Grandfather Dementia Family/Other Alzheimers disease Social History Household Members: Significant Other Housing: Apartment Do you presently have visiting nurse or other home services: No Unable to assess alcohol history related to: Unknown Alcohol intake: current Alcohol intake frequency: 3 or more drinks per day Alcohol type: hard liquor Patient Tobacco Use Status: Former Tobacco user Tobacco use type: Cigarette Years Smoked: 2010 quit e-Cigarette/Vaping Use: Never Used Second Hand Smoke Exposure: Yes Advance Directives Date on File: 08/01/24 service: No Current occupational status: disabled and other Current occupation: right handed. Cognitive needs: No Hearing needs: No Vision needs: No Questionnaire PHQ-9 Over the last 2 weeks, how often have you been bothered by any of the following problems? 1. Little interest or pleasure in doing things: not at all 2. Feeling down, depressed, or hopeless: not at all 3. Trouble falling or staying asleep, or sleeping too much: not at all 4. Feeling tired or having little energy: not at all 5. Poor appetite or overeating: not at all 6. Feeling bad about yourself - or that you are a failure or have let yourself or your family down: not at all 7. Trouble concentrating on things, such as reading the newspaper or watching television: not at all 8. Moving or speaking so slowly that other people could have noticed. Or the opposite - being so fidgety or restless that you have been moving around a lot more than usual: not at all 9. Thoughts that you would be better off or of hurting yourself in some way: not at all Total score: 0 Source: Developed by Drs. Andrae Del Rio, Jennifer Ahmadi, Zeferino Villarreal and colleagues, with an educational medardo from [employer]. Thrive Questionnaire Date Thrive assessed: 02/07/25 I am a: Patient What is your living situation today?: I have a steady place to live Within the past 12 months, did the food you bought not last and you didn't have the money to get more?: Never true Within the past 12 months, did you worry whether your food would run out before you got money to buy more?: Never true Do you have trouble paying for medicines?: No Do you have trouble getting transportation to medical appointments?: No Do you have trouble paying your heating and electricity bill?: No Do you have trouble taking care of your child, family member or friend?: No Do you have trouble with day-to-day activities such as bathing, preparing meals, shopping, managing finances, etc.?: No Are you currently unemployed and looking for a job?: No Are you interested in more education?: No Please select the resources that you would like help with: None Currently or been in a relationship where the following occur: No concerns reported THRIVE Score: 0 AUDIT C Alcohol Use Questionnaire (AUDIT-C) 1. How often do you have a drink containing alcohol?: Monthly or less 2. How many drinks containing alcohol do you have on a typical day when you are drinking?: 10 or more 3. How often do you have six or more drinks on one occasion?: Daily or almost daily Total Score: 9 PRADIP-7 AMB Questionnaire PRADIP-7 Date PRADIP - 7 assessed: 02/07/25 Feeling nervous, anxious, or on edge: 0 = Not at all Not being able to stop or control worryin = Not at all Worrying too much about different things: 0 = Not at all Trouble relaxin = Not at all Being so restless that it is hard to sit still: 0 = Not at all Becoming easily annoyed or irritable: 0 = Not at all Feeling afraid as if something awful might happen: 0 = Not at all Total PRADIP-7 score (0-4 normal; 5-9 mild; 10-14 moderate; 15-21 severe): 0 Source: Developed by Drs. Andrae Del Rio, Jennifer Ahmadi, Zeferino Villarreal and colleagues, with an educational medardo from [employer]. Physical exam (Primary Care) Vital Signs: Last Vital Signs Temp 96.9 F 02/07/25 11:36 Pulse 88 02/07/25 11:36 Resp 18 02/07/25 11:36 BP 140/90 H 02/07/25 11:36 Pulse Ox 96 02/07/25 11:36 Oxygen Delivery Method Room Air 02/07/25 11:36 BMI result Body Mass Index 22.9 Tobacco/Smoking Status: Tobacco use Status Tobacco use date assessed 02/07/25 02/07/25 11:56 Patient Tobacco Use Status Former Tobacco user 02/07/25 11:37 Tobacco use type Cigarette 02/07/25 11:37 e-Cigarette/Vaping Use Never Used 02/07/25 11:37 PHQ-9: PHQ-9 Score PHQ-9: Total score 0 02/07/25 12:09 Thrive Assessment: Date of Thrive Assessment Date Thrive assessed 02/07/25 02/07/25 11:56 Currently or been in a relationship where the following occur: No concerns reported Const General: alert; No acute distress Eyes Conjunctivae: conjunctivae normal Resp Auscultation: clear to auscultation bilaterally Cardio Rate: regular rate Rhythm: regular rhythm GI Inspection: Yes normal to inspection Extrem General: Yes normal to inspection and No edema Coding Level of Care Code Est Pt Level 4 ([id number]) Complex EM visit Add On G2211 Diagnoses Lumbar spondylosis M47.816 Hepatic steatosis K76.0 Generalized anxiety disorder F41.1 Alcohol abuse F10.10 Hypertension I10 Hypercholesterolemia E78.00 Gastroesophageal reflux disease, unspecified whether esophagitis present K21.9 Esophagitis presence: esophagitis presence not specified Hypomagnesemia E83.42 Hypokalemia E87.6 Anemia D64.9 Assessment & Plan Assessment & Plan (1) Lumbar spondylosis: Comment: January 2025 MRI Code(s): M47.816 - Spondylosis without myelopathy or radiculopathy, lumbar region Category: Medical Plan: Patient has seen Orthopedics. (2) Hepatic steatosis: Code(s): K76.0 - Fatty (change of) liver, not elsewhere classified Category: Medical Plan: Low-fat diet, abstain from alcohol (3) Generalized anxiety disorder: Comment: decline counselling referral Code(s): F41.1 - Generalized anxiety disorder Category: Medical Plan: Discussed about counseling and therapy (4) Alcohol abuse: Code(s): F10.10 - Alcohol abuse, uncomplicated Category: Social Hx Plan: Patient should abstain from alcohol!! (5) Hypertension: Code(s): I10 - Essential (primary) hypertension Category: Medical Plan: Continue with blood pressure medication. Decrease salt intake and exercise presently on lisinopril 5 mg once a day (6) Hypercholesterolemia: Code(s): E78.00 - Pure hypercholesterolemia, unspecified Category: Medical Plan: Avoid fried foods, chicken skin, eggs, butter margarine, pastries and meat. Be it pork or beef they have a lot of cholesterol LDL goal of less than 130 and triglyceride of less than 150 (7) GERD (gastroesophageal reflux disease): Code(s): K21.9 - Gastro-esophageal reflux disease without esophagitis Category: Medical Qualifiers: Esophagitis presence: esophagitis presence not specified Qualified Code(s): K21.9 - Gastro-esophageal reflux disease without esophagitis Plan: Avoid the foods that causes that usually spicy foods, tomato products, juices, coffee, soda and foods that your sensitive to. After eating do not lie down, allow 3-4 hours before in lie down. And keep the head of bed above 30 degrees to avoid the acid from going up. (8) Hypomagnesemia: Code(s): E83.42 - Hypomagnesemia Category: Medical Plan: Patient was prescribed magnesium for replacement need to repeat testing (9) Hypokalemia: Code(s): E87.6 - Hypokalemia Category: Medical Plan: Patient was prescribed potassium and need blood work retesting (10) Anemia: Code(s): D64.9 - Anemia, unspecified Category: Medical Plan: Improving, continue to monitor Plan History of Present Illness The patient is a 59-year-old male presenting for a follow-up visit. The patient has a history of Gastroesophageal Reflux Disease (GERD) and avascular necrosis of the left hip, for which he underwent a left hip arthroplasty in 2018. He also has a history of hypercholesterolemia and alcohol use disorder, which have been ongoing concerns. The patient has been diagnosed with generalized anxiety disorder and hypertension, which are being managed with medication. In January, a lumbar MRI revealed multilevel degenerative spondylosis of the lumbar spine with sacralization of L5. The patient has been following up with orthopedics for these findings. An ultrasound of the liver conducted in November showed mild hepatic steatosis. Blood work in January indicated mild anemia, leukopenia, hypokalemia, and hypomagnesemia, with elevated liver enzymes and hypertriglyceridemia. The patient also exhibited hyperglycemia during this period. Health Maintenance - Low-fat diet recommended - Abstinence from alcohol advised - Counseling and therapy for alcohol use disorder discussed Social History - History of alcohol use disorder with ongoing concerns about abstinence and counseling Review of Systems Physical Exam Results - Labs: Mild anemia, leukopenia, hypokalemia, hypomagnesemia, elevated liver enzymes, hypertriglyceridemia, hyperglycemia - Imaging: Lumbar MRI showing multilevel degenerative spondylosis with L5 sacralization - Imaging: Ultrasound of the liver showing mild hepatic steatosis Plan The patient is advised to continue with a low-fat diet and abstain from alcohol to manage hypercholesterolemia and hepatic steatosis. Counseling and therapy options for alcohol use disorder were discussed, emphasizing the importance of abstinence. The patient is currently on lisinopril 5 mg daily for hypertension, and blood pressure management will continue to be monitored. Magnesium and potassium supplements have been prescribed, and follow-up blood work is necessary to assess electrolyte levels. The patient is encouraged to follow up with orthopedics regarding lumbar spondylosis and sacralization of L5. Further evaluation by gastroenterology is recommended for GERD management. Patient was informed and verbally consented to the use of an ambient scribe for clinic note documentation during this visit. Discussion Notes During the visit, I discussed the importance of dietary modifications, including a low-fat diet, and the need for abstinence from alcohol to manage the patient's hypercholesterolemia and hepatic steatosis. We explored counseling and therapy options for alcohol use disorder, emphasizing the significance of abstinence. I advised the patient to continue lisinopril for hypertension and to monitor blood pressure regularly. Magnesium and potassium supplements were prescribed, and I recommended follow-up blood work to evaluate electrolyte levels. I encouraged the patient to follow up with orthopedics for lumbar spondylosis and sacralization of L5 and suggested further evaluation by gastroenterology for GERD management. Patient Instructions - Follow a low-fat diet and abstain from alcohol. - Attend counseling and therapy sessions for alcohol use disorder. - Continue taking lisinopril 5 mg daily and monitor blood pressure regularly. - Take prescribed magnesium and potassium supplements and follow up with blood work. - Schedule follow-up appointments with orthopedics and gastroenterology.
== END 2025-02-07 12:36 | disposition home or self-care (01) ==
LOC: HO.HMCH 10:03
PROVIDERS: PCP Internal Medicine; Visit Provider Internal Medicine
DX: M47.816 Spondylosis without myelopathy or radiculopathy, lumbar region (principal); K76.0 Fatty (change of) liver, not elsewhere classified; F41.1 Generalized anxiety disorder; F10.10 Alcohol abuse, uncomplicated; I10 Essential (primary) hypertension; E78.00 Pure hypercholesterolemia, unspecified; K21.9 Gastro-esophageal reflux disease without esophagitis; E83.42 Hypomagnesemia; E87.6 Hypokalemia; D64.9 Anemia, unspecified

== ENCOUNTER → 2025-02-07 10:02 | Outpatient (BNVA) | payer MEDICARE, MEDICAID, SELFPAY | PROVIDERS: PCP Internal Medicine; Visit Provider Internal Medicine | DX: M47.816 Spondylosis without myelopathy or radiculopathy, lumbar region (principal); K76.0 Fatty (change of) liver, not elsewhere classified; F41.1 Generalized anxiety disorder; F10.10 Alcohol abuse, uncomplicated; I10 Essential (primary) hypertension; E78.00 Pure hypercholesterolemia, unspecified; K21.9 Gastro-esophageal reflux disease without esophagitis; E83.42 Hypomagnesemia; E87.6 Hypokalemia; D64.9 Anemia, unspecified | CPT/HCPCS: 99212 ==

== ENCOUNTER 2025-02-26 11:31 | Outpatient (AMB) | payer MEDICARE, MEDICAID, SELFPAY ==
--- NOTE | 2025-02-26 11:41 | MHC.OFFVIS ---
Vital Signs 02/26/25 11:42 Height 5 ft Weight 113 lb BMI 22.1 BP 113/80 Blood Pressure Location Lt brachial Position Sitting Respiration 16 Pulse 83 Pulse Source Pulse Oximeter Pulse Oximetry (%) 98 Oxygen Delivery Method Room Air Intake Visit Reasons: Low back pain, unspecified Photonics Engineering Technician Required: No Allergies povidone-iodine Allergy (Verified 02/26/25 11:42) Rash HPI Comments Details: The patient is a 59-year-old male presenting with low back pain with left-sided radiculopathy. The pain began this year and radiates to the left buttock, leg, and foot, causing numbness in the toes. He denies any recent injury, falls, or trauma. The patient has a history of left total hip arthroplasty performed on August 30, 2018, and reports persistent left hip and posterior thigh pain. He denies any symptoms on the right. The patient's MRI of the lumbar spine, completed last month, reveals L5 sacralization and multilevel degenerative spondylosis with mild right and moderate left foraminal narrowing at L4-L5. The disc appears to be compressing the left exiting nerve root at L4-L5 and mild to moderate foraminal narrowing at L2-L3 and L3-L4 levels. Denies any previous spine injury or injections. He is hesitant towards interventional treatments, including therapeutic injecitons under light sedation due to needle phobia and associated discomfort with injections. The patient reports that the pain affects his daily activities, mobility, and sleep, and left leg weakness with ambulation. He has been taking Tylenol and gabapentin BID with minimal relief. Denies any bowel or bladder dysfunction or saddle anesthesia. The patient admits to consuming alcohol, specifically vodka, at a rate of one pint per day, which may contribute to his weight loss and neuropathic pain in his feet. He has attempted Alcoholics Anonymous in the past but continues to drink socially outside of his home. Patient reports he does not drink alcohol when he takes gabapentin. Patient is intersted in [facility] referral for alcohol addiction. - Onset: Pain began this year, worsening for past 3 months - Quality: Stabbing, radiating, throbbing, pinching, burning, aching, heavy, numbness, tingling - Location: Low back, radiating to left buttock, leg, and foot - Radiation: Toes and foot numbness on the left - Exacerbating factors: Sitting, ambulation, bending, twisting - Relieving factors: None noted - Interference: Affects daily activities, mobility, and sleep - Affect: Pain impacts sleep and daily activities - Analgesia: Currently taking Tylenol with minimal relief; gabapentin prescribed - Adverse Effects: None reported - Activities of Daily Living: Pain affects mobility and sleep - Aberrant Drug Related Behaviors: Alcohol use disorder noted Oswestry Low Back Pain Disability Score=42 [facility] Medical History Hypomagnesemia Blood pressure elevated without history of HTN Colon cancer screening declined Hypertriglyceridemia Hypercholesterolemia Avascular necrosis of bone of left hip Insomnia Polysubstance abuse Anxiety and depression Alcohol abuse History of pancreatitis GERD (gastroesophageal reflux disease) Surgical History History of drainage of abscess H/O total hip arthroplasty Family History Father CAD (coronary artery disease) S/P CABG x 2 Mother Hypertension Osteoarthritis Brother Alive and well Sister Deaf Maternal Grandmother Cancer Maternal Grandfather Dementia Family/Other Alzheimers disease Social History Household Members: Significant Other Housing: Apartment Do you presently have visiting nurse or other home services: No Unable to assess alcohol history related to: Unknown Alcohol intake: current Alcohol intake frequency: 3 or more drinks per day Alcohol type: hard liquor and other Comment: Vodka Patient Tobacco Use Status: Former Tobacco user Tobacco use type: Cigarette Years Smoked: 2010 quit e-Cigarette/Vaping Use: Never Used Second Hand Smoke Exposure: Yes Advance Directives Date on File: 08/01/24 service: No Current occupational status: disabled and other Current occupation: right handed. Cognitive needs: No Hearing needs: No Vision needs: No Review of Systems Const Details: - Musculoskeletal: Reports low back pain radiating to left leg and foot, numbness in toes - Neurological: Denies bowel or bladder dysfunction or saddle anesthesia - General: Reports weight loss, denies recent injury or trauma - Psychiatric: Reports difficulty sleeping due to pain All systems reviewed & are unremarkable except as noted in HPI and below Physical Exam Vital Signs: Last Vital Signs Pulse 83 02/26/25 11:42 BP 113/80 02/26/25 11:42 Pulse Ox 98 02/26/25 11:42 Oxygen Delivery Method Room Air 02/26/25 11:42 General: Appears afebrile. Alert and oriented. Mood and affect appropriate. Follows and participates in conversation appropriately. Respiratory effort is unlabored. No cough. Able to transition from sit to stand unassisted. Ambulates with bilaterally normal heel strike and toe off. General: Yes no CVA tenderness Back/Spine/Pelvis Other: Limited lumbar ROM due to pain. Lumbar extension and flexion reproduces [id number] pain. Demonstrates 5/5 right and 4/5 left strength of quadriceps bilaterally as well as flexion/dorsiflexion of bilateral feet against resistance. 2+ pedal pulses bilaterally. Straight leg rise with dorsiflexion positive on the left. +2 patellar and achilles reflexes bilaterally. Facet loading test positive bilaterally. Marilee sign positive on the left, Ten?s, Pelvic compression and Stinchfield reproduce posterior thigh and lateral hip on the left, not back pain. No groin pain with I/E hip rotations. Valsalva maneuver negative. Back: no CVA tenderness Cervical Spine: cervical ROM normal, cervical muscular tenderness, No Cervical spine tenderness and No step off deformity Thoracic/Lumbar Spine: thoracic and lumbar spine normal to inspection, No Thoracic/lumbar spine scar(s), Lasegue's sign positive on the left and diffuse, pain with thoraco-lumbar ROM, paraspinal muscle tenderness on the left greater than right, thoraco-lumbar ROM limited, No thoracic spinal tenderness and lumbar spinal tenderness (L4-S1) Pelvis: buttock tenderness on the left Sacroiliac joints: on the right nontender and on the left tender to palpation Extrem General: Yes capillary refill normal, Yes no clubbing, cyanosis or edema and Yes no calf tenderness Results Reviewed Results Reviewed: MR lumbar spine wo con 01/21/25 Comparison: None Findings: 4 [id number] lumbar-type vertebral bodies, L5 sacralization with rudimentary L5-S1 disc. Lumbar spine alignment is normal. No acute fracture, osseous lesion or suspicious bone marrow signal. Small Schmorl's nodes of the included lower thoracic spine. Multilevel prevertebral osteophytes. Conus medullaris terminates at T12, normal morphology. Paraspinal musculature, included abdominopelvic contents are unremarkable. T11-12: Disc height loss and mild diffuse annular disc bulge. No central canal stenosis, mild right foraminal narrowing. No left foraminal narrowing. T12-L1: Normal disc. No central canal stenosis or foraminal narrowing. Normal facets. L1-2: Minimal diffuse annular disc bulge. Small facet joint effusion bilaterally. No central canal stenosis. Mild left foraminal narrowing. No right foraminal narrowing. L2-3: Mild disc height loss, posterior annular fissure and diffuse annular disc bulge, 2-3 mm posteriorly, mild central canal stenosis with AP diameter of the thecal sac 6-7 mm. Mild right worse than left foraminal narrowing. Bilateral facet arthrosis and facet joint effusion. L3-4: Mild disc height loss and diffuse annular disc bulge. Mild central canal stenosis. Mild left and moderate right foraminal narrowing, the disc is mildly compressing on the right exiting nerve root. Facet arthrosis and joint effusion bilaterally. L4-5: Mild disc height loss and diffuse annular disc bulge, more conspicuous focal bulge at the left foraminal region, no central canal stenosis. Mild right and moderate left foraminal narrowing, the disc appears compressing on the left exiting nerve root. Bilateral facet arthrosis, facet joint effusion bilaterally. L5-S1: Rudimentary disc is normal. No central canal stenosis or foraminal narrowing. Mild facet arthrosis. Impression: 1. L5 sacralization. 2. Multilevel degenerative spondylosis of lumbar spine, as detailed above. XR PELVIS 01/04/25 CLINICAL INFORMATION: M25.559 - Pain in unspecified hip COMPARISON: 09/04/2024. TECHNIQUE: AP view of the pelvis. FINDINGS: There has been a total left hip arthroplasty. Femoral, and acetabular components are well seated, in anatomic alignment. No periprosthetic lucency, subsidence, or complication. The pelvis appears intact. No bone lesions. The right hip joint demonstrates only minimal osteoarthrosis. The sacrum appears intact. The SI joints appear normal. There are spondylitic changes in the lower lumbar spine. No soft tissue abnormalities. IMPRESSION: 1. Intact pelvis and right hip. 2. Left hip arthroplasty without complication. Assessment & Plan Assessment & Plan (1) Low back pain potentially associated with radiculopathy: Code(s): M54.50 - Low back pain, unspecified Category: Medical (2) Lumbar spondylosis: Comment: January 2025 MRI Code(s): M47.816 - Spondylosis without myelopathy or radiculopathy, lumbar region Category: Medical (3) Alcohol abuse: Code(s): F10.10 - Alcohol abuse, uncomplicated Category: Social Hx (4) Peripheral neuropathy: Code(s): G62.9 - Polyneuropathy, unspecified Category: Medical (5) Lumbar degenerative disc disease: Code(s): M51.369 - Other intervertebral disc degeneration, lumbar region without mention of lumbar back pain or lower extremity pain Category: Medical Plan The management plan for the patient's low back pain with left-sided radiculopathy includes initiating physical therapy. Gabapentin has been prescribed to manage neuropathic pain, with instructions to take it three times a day. The patient is advised to avoid alcohol consumption while taking gabapentin due to potential interactions and increased drowsiness. In addition to physical therapy, a Medrol dose pack has been prescribed to reduce left sided radicular symptoms and manage pain. Patient declined at interventional treatments, including under light sedation due to significant needle phobia. He is interested to trial physical therapy and reconsider interventional treatments if no improvement with PT. Neurodiagnostic studies for both lower extremities to further evaluate peripheral neuropathy and left sided radiculopathy. Referral to an [facility] addiction clinic has been suggested to address his alcohol use disorder and patient agreed. All questions and concerns have been answered and patient agreed with the treatment plan. Follow up after PT and sooner as needed. Patient was informed and verbally consented to the use of an ambient scribe for clinic note documentation during this visit. Orders: Orders NE nerve conduction velocity Today F10.10 - Alcohol abuse, uncomplicated, G62.9 - Polyneuropathy, unspecified, M47.816 - Spondylosis without myelopathy or radiculopathy, lumbar region, M54.50 - Low back pain, unspecified NE electromyogram (EMG) Today F10.10 - Alcohol abuse, uncomplicated, G62.9 - Polyneuropathy, unspecified, M54.50 - Low back pain, unspecified Referrals Addiction Medicine Referral F10.10 - Alcohol abuse, uncomplicated Medications: New methylprednisolone (Medrol (Junior)) PO PER PKG DIR 21 ea 0RF pain M54.50 - Low back pain, unspecified Changed From gabapentin 300 mg PO BID 180 caps 2RF M47.816 - Spondylosis without myelopathy or radiculopathy, lumbar region, M54.50 - Low back pain, unspecified To gabapentin 300 mg PO TID 90 caps 0RF pain 30 days M47.816 - Spondylosis without myelopathy or radiculopathy, lumbar region, M54.50 - Low back pain, unspecified Coding Level of Care Code New Pt Level 4 (50130) Diagnoses Low back pain potentially associated with radiculopathy M54.50 Lumbar spondylosis M47.816 Alcohol abuse F10.10 Peripheral neuropathy G62.9 Lumbar degenerative disc disease M51.369
[2025-02-26 11:42] VITALS: BP 113/80; PULSE 83; RESP 16; O2SAT 98; BMI 22.1
--- OUTSIDE RECORDS SUMMARY | 2025-02-26 14:13 | XMS_ITS | Clinical Summary ---
Author Organization [employer] [facility] Address [address] [place] [address] Care Team Providers Care Structural Steel Engineer Name Role Phone Unavailable Primary Care Provider [...] - PCV20 or PCV21) 01/13/2023 01/13/2018, 03/21/2017 DTaP/Tdap/Td Vaccines (2 - Td or Tdap) 10/25/2024 10/25/2014 COVID-19 Vaccine ( - season) 2025 03/18/2023, 07/13/2022, 11/16/2020, Additional history exists Influenza Vaccine (#1) 2025 3, 02/25/2021, 06/05/2020, [...] age to complete this topic Insurance MEDICARE [facility] STANDARD
== END 2025-02-26 12:07 | disposition home or self-care (01) ==
LOC: HO.PMC 11:31
PROVIDERS: PCP Internal Medicine; Visit Provider Nurse Practitioner Family
DX: M54.50 Low back pain, unspecified (principal); M47.816 Spondylosis without myelopathy or radiculopathy, lumbar region; F10.10 Alcohol abuse, uncomplicated; G62.9 Polyneuropathy, unspecified; M51.369 Other intervertebral disc degeneration, lumbar region without mention of lumbar back pain or lower extremity pain
CPT/HCPCS: 99204

== ENCOUNTER → 2025-02-26 11:31 | Outpatient (BNVA) | payer MEDICARE, MEDICAID, SELFPAY | PROVIDERS: PCP Internal Medicine; Visit Provider Nurse Practitioner Family | DX: M54.50 Low back pain, unspecified (principal); M47.816 Spondylosis without myelopathy or radiculopathy, lumbar region; F10.10 Alcohol abuse, uncomplicated; G62.9 Polyneuropathy, unspecified; M51.369 Other intervertebral disc degeneration, lumbar region without mention of lumbar back pain or lower extremity pain; Z96.642 Presence of left artificial hip joint | CPT/HCPCS: 99202 ==

== ENCOUNTER 2025-03-05 13:52 | Outpatient (AMB) | payer MEDICARE, MEDICAID, SELFPAY ==
--- NOTE | 2025-03-05 13:53 | MHC.OFFVIS ---
Vital Signs 03/05/25 14:04 Height 5 ft Weight 124 lb BMI 24.2 BP 148/90 H Blood Pressure Location Rt brachial Position Sitting Pulse 92 Pulse Source Pulse Oximeter Pulse Oximetry (%) 97 Oxygen Delivery Method Room Air Intake Visit Reasons: MAT Intake Allergies povidone-iodine Allergy (Verified 03/05/25 14:04) Rash HPI Comments Details: 59-year-old male presents for a MAT intake with girlfriend for AUD. Reports drinking 12 nips of vodka per day since 2009 began after the of . Denies opiates, and other substances. The patient reports not interested in a detox program, AA meetings, or peer support continuous improvement coach, or oral medications. [facility] Medical History Hypomagnesemia Blood pressure elevated without history of HTN Colon cancer screening declined Hypertriglyceridemia Hypercholesterolemia Avascular necrosis of bone of left hip Insomnia Polysubstance abuse Anxiety and depression Alcohol abuse History of pancreatitis GERD (gastroesophageal reflux disease) Surgical History History of drainage of abscess H/O total hip arthroplasty Family History Father CAD (coronary artery disease) S/P CABG x 2 Mother Hypertension Osteoarthritis Brother Alive and well Sister Deaf Maternal Grandmother Cancer Maternal Grandfather Dementia Family/Other Alzheimers disease Social History (Updated 02/26/25 @ 12:26 by NAVIN Cruz) Household Members: Significant Other Housing: Apartment Do you presently have visiting nurse or other home services: No Unable to assess alcohol history related to: Unknown Alcohol intake: current Alcohol intake frequency: 3 or more drinks per day Alcohol type: hard liquor and other Comment: Vodka Patient Tobacco Use Status: Former Tobacco user Tobacco use type: Cigarette Years Smoked: 2010 quit e-Cigarette/Vaping Use: Never Used Second Hand Smoke Exposure: Yes Advance Directives Date on File: 08/01/24 service: No Current occupational status: disabled and other Current occupation: right handed. Cognitive needs: No Hearing needs: No Vision needs: No Physical Exam Vital Signs: Last Vital Signs Pulse 92 03/05/25 14:04 BP 148/90 H 03/05/25 14:04 Pulse Ox 97 03/05/25 14:04 Oxygen Delivery Method Room Air 03/05/25 14:04 BMI result Body Mass Index 24.2 Assessment & Plan Assessment & Plan (1) Alcohol use disorder, severe, dependence: Code(s): F10.20 - Alcohol dependence, uncomplicated Category: Medical Plan The patient is interested in Vivitrol long acting injectable which is contraindicated with concurrent use of tramadol. Reports he will follow up with PCP to discuss possible tapering of tramadol. Education provided to consider other treatment modalities such as acamprosate and/or taper off of tramadol. The patient refuses to take oral medications for alcohol use disorder. Education provided regarding risk reduction activities to minimize alcohol consumption and detox programs. Patient to start on thiamine 100 mg and folic acid 1 mg daily. Follow up in 1 month or sooner as needed. Medications: New folic acid Take one tablet by mouth daily. 1 mg PO DAILY 90 tabs 0RF 90 days thiamine mononitrate (vit B1) Take one tablet daily. 100 mg PO DAILY 90 tabs 0RF 90 days Patient Instructions: - Start on thiamine 100 mg and folic acid 1 mg daily. - Engage in risk reduction activities to minimize alcohol consumption. - Follow up with PCP to discuss possible tapering of tramadol. - Follow-up in 1 month or sooner if needed. - Call with questions, concerns, or to report side effects/new onset of symptoms to [facility]. - The patient verbalized understanding and agreed with plan of care. Coding Level of Care Code New Pt Level 3 (51945) Diagnoses Alcohol use disorder, severe, dependence F10.20
[2025-03-05 14:04] VITALS: BP 148/90; PULSE 92; O2SAT 97; BMI 24.2
--- OUTSIDE RECORDS SUMMARY | 2025-03-05 19:11 | XMS_ITS | Clinical Summary ---
Author Organization [employer] [facility] Address [address] [place] [address] Care Team Providers Care Breaker Up Machine Operator Name Role Phone Unavailable Primary Care [...] age to complete this topic Insurance MEDICARE [facility] STANDARD
== END 2025-03-05 14:24 | disposition home or self-care (01) ==
LOC: HO.HCC 13:52
PROVIDERS: PCP Internal Medicine; Visit Provider Clinical Nurse Specialist Psychiatric/Mental Health
DX: F10.20 Alcohol dependence, uncomplicated (principal)
CPT/HCPCS: 99203

== ENCOUNTER → 2025-03-05 13:52 | Outpatient (BNVA) | payer MEDICARE, MEDICAID, SELFPAY | PROVIDERS: PCP Internal Medicine; Visit Provider Clinical Nurse Specialist Psychiatric/Mental Health | DX: F10.20 Alcohol dependence, uncomplicated (principal) | CPT/HCPCS: 99202 ==

== ENCOUNTER 2025-03-13 08:59 | Outpatient (REF) | payer MEDICARE, MEDICAID, SELFPAY ==
--- OUTSIDE RECORDS SUMMARY | 2025-03-13 10:22 | XMS_ITS | Clinical Summary ---
Author Organization [employer] [facility] Address [address] [place] [address] Care Team Providers Care Commercial Collections Driver Name Role Phone Unavailable Primary Care Provider [...] age to complete this topic Insurance MEDICARE [facility] STANDARD
[2025-03-13 12:10] LABS: Alanine Aminotransferase 82 U/L (0-40); Albumin Level 4.7 g/dL (3.5-5.0); Alkaline Phosphatase 497 U/L (39-117); Anion Gap 17 (12-20); Aspartate Amino Transferase 223 U/L (5-37); Blood Urea Nitrogen 15 mg/dL (9-16); Calcium 9.3 mg/dL (8.4-10.2); Carbon Dioxide 26 mmol/L (22-29); Chloride 101 mmol/L (96-108); Estimated Glomerular Filt Rate > 60; Magnesium 1.7 mg/dL (1.6-2.6); Potassium 4.0 mmol/L (3.3-5.1); Sodium 140 mmol/L (135-145); Total Protein 8.0 g/dL (6.5-8.0)
== END 2025-03-13 09:00 | disposition home or self-care (01) ==
LOC: HO.LAB 08:59
PROVIDERS: PCP Internal Medicine; Visit Provider Internal Medicine
DX: E83.42 Hypomagnesemia (principal); I10 Essential (primary) hypertension; E87.6 Hypokalemia; F10.20 Alcohol dependence, uncomplicated; F41.1 Generalized anxiety disorder; E78.00 Pure hypercholesterolemia, unspecified; K21.9 Gastro-esophageal reflux disease without esophagitis; K76.0 Fatty (change of) liver, not elsewhere classified; D64.9 Anemia, unspecified; M47.816 Spondylosis without myelopathy or radiculopathy, lumbar region; Z79.899 Other long term (current) drug therapy
CPT/HCPCS: 36415; 80053; 83735; 99212

== ENCOUNTER 2025-03-13 14:11 | Outpatient (AMB) | payer MEDICARE, MEDICAID, SELFPAY ==
--- NOTE | 2025-03-13 14:23 | A.OFFPC_ITS ---
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 Required: No Accompanied by: Self / Same As Patient Allergies povidone-iodine Allergy (Verified 03/13/25 14:24) Rash Medication List - Last Reconciled 03/13/25 by Gillian Dupree MD acetaminophen (Tylenol Extra Strength) 500 mg PO Q6H PRN blood pressure monitor (Blood Pressure Kit) As directed clonazepam 1 mg PO DAILY fluticasone propionate 50 mcg/actuation 1 spray intranasal DAILY folic acid 1 mg PO DAILY 90 days gabapentin 300 mg PO TID 30 days hydroxyzine HCl 50 mg PO BID lisinopril 5 mg PO DAILY magnesium oxide (MagOx) 400 mg PO BID methylprednisolone (Medrol (Junior)) PO PER PKG DIR omeprazole 20 mg PO BID@0630,1630 sildenafil 100 mg PO DAILY PRN thiamine mononitrate (vit B1) 100 mg PO DAILY 90 days tramadol 50 mg PO .QD PRN triamcinolone acetonide 0.5% 1 appl topical BID Tobacco use date assessed: 03/13/25 Dental Screening Dental Screen Date: 03/13/25 Did you have a dental visit in the last 12 months?: No Did you have a dental problem in the last 6 months where you did not have access to dental care?: No PFSH Medical History Hypomagnesemia Blood pressure elevated without history of HTN Colon cancer screening declined Hypertriglyceridemia Hypercholesterolemia Avascular necrosis of bone of left hip Insomnia Polysubstance abuse Anxiety and depression Alcohol abuse History of pancreatitis GERD (gastroesophageal reflux disease) Surgical History History of drainage of abscess H/O total hip arthroplasty Family History Father CAD (coronary artery disease) S/P CABG x 2 Mother Hypertension Osteoarthritis Brother Alive and well Sister Deaf Maternal Grandmother Cancer Maternal Grandfather Dementia Family/Other Alzheimers disease Social History Household Members: Significant Other Housing: Apartment Do you presently have visiting nurse or other home services: No Alcohol intake: current Alcohol intake frequency: 3 or more drinks per day Alcohol type: hard liquor and other Comment: Vodka Patient Tobacco Use Status: Former Tobacco user Tobacco use type: Cigarette Years Smoked: 2010 quit e-Cigarette/Vaping Use: Never Used Second Hand Smoke Exposure: Yes Advance Directives Date on File: 08/01/24 service: No Current occupational status: disabled and other Current occupation: right handed. Cognitive needs: No Hearing needs: No Vision needs: Yes (yes but he's not wearing them) Questionnaire PHQ-9 Over the last 2 weeks, how often have you been bothered by any of the following problems? 1. Little interest or pleasure in doing things: not at all 2. Feeling down, depressed, or hopeless: not at all 3. Trouble falling or staying asleep, or sleeping too much: not at all 4. Feeling tired or having little energy: not at all 5. Poor appetite or overeating: not at all 6. Feeling bad about yourself - or that you are a failure or have let yourself or your family down: not at all 7. Trouble concentrating on things, such as reading the newspaper or watching television: not at all 8. Moving or speaking so slowly that other people could have noticed. Or the opposite - being so fidgety or restless that you have been moving around a lot more than usual: not at all 9. Thoughts that you would be better off or of hurting yourself in some wa y: not at all Total score: 0 Source: Developed by Drs. Andrae Del Rio, Jennifer Ahmadi, Zeferino Villarreal and colleagues, with an educational medardo from [employer]. Thrive Questionnaire Date Thrive assessed: 03/13/25 I am a: Patient What is your living situation today?: I have a steady place to live Within the past 12 months, did the food you bought not last and you didn't have the money to get more?: Never true Within the past 12 months, did you worry whether your food would run out before you got money to buy more?: Never true Do you have trouble paying for medicines?: No Do you have trouble getting transportation to medical appointments?: No Do you have trouble paying your heating and electricity bill?: No Do you have trouble taking care of your child, family member or friend?: No Do you have trouble with day-to-day activities such as bathing, preparing meals, shopping, managing finances, etc.?: No Are you currently unemployed and looking for a job?: No Are you interested in more education?: No Please select the resources that you would like help with: None Currently or been in a relationship where the following occur: No concerns reported THRIVE Score: 0 AUDIT C Alcohol Use Questionnaire (AUDIT-C) 1. How often do you have a drink containing alcohol?: Monthly or less 2. How many drinks containing alcohol do you have on a typical day when you are drinking?: 1 or 2 3. How often do you have six or more drinks on one occasion?: Less than monthly Total Score: 2 PRADIP-7 AMB Questionnaire PRADIP-7 Date PRADIP - 7 assessed: 03/13/25 Feeling nervous, anxious, or on edge: 0 = Not at all Not being able to stop or control worryin = Not at all Worrying too much about different things: 0 = Not at all Trouble relaxin = Not at all Being so restless that it is hard to sit still: 0 = Not at all Becoming easily annoyed or irritable: 0 = Not at all Feeling afraid as if something awful might happen: 0 = Not at all Total PRADIP-7 score (0-4 normal; 5-9 mild; 10-14 moderate; 15-21 severe): 0 Source: Developed by Drs. Andrae Del Rio, Jennifer Ahmadi, Zeferino Villarreal and colleagues, with an educational medardo from [employer]. Physical exam (Primary Care) Vital Signs: Last Vital Signs Temp 97.3 F 03/13/25 14:24 Pulse 101 H 03/13/25 14:24 BP 140/82 H 03/13/25 14:24 Pulse Ox 96 03/13/25 14:24 Oxygen Delivery Method Room Air 03/13/25 14:24 BMI result Body Mass Index 23.5 Tobacco/Smoking Status: Tobacco use Status Tobacco use date assessed 03/13/25 03/13/25 14:25 Patient Tobacco Use Status Former Tobacco user 03/13/25 14:25 Tobacco use type Cigarette 03/13/25 14:25 e-Cigarette/Vaping Use Never Used 03/13/25 14:25 PHQ-9: PHQ-9 Score PHQ-9: Total score 0 03/13/25 14:45 Thrive Assessment: Date of Thrive Assessment Date Thrive assessed 03/13/25 03/13/25 14:25 Currently or been in a relationship where the following occur: No concerns repor manfred Const General: alert; No acute distress Eyes Conjunctivae: conjunctivae normal Resp Auscultation: clear to auscultation bilaterally Cardio Rate: regular rate Rhythm: regular rhythm GI Inspection: Yes normal to inspection Extrem General: Yes normal to inspection and No edema Coding Level of Care Code Est Pt Level 4 (72685) Complex EM visit Add On G2211 Diagnoses Alcohol use disorder, severe, dependence F10.20 Generalized anxiety disorder F41.1 Hypertension I10 Hypercholesterolemia E78.00 Gastroesophageal reflux disease, unspecified whether esophagitis present K21.9 Esophagitis presence: esophagitis presence not specified Hepatic steatosis K76.0 Anemia D64.9 Lumbar spondylosis M47.816 Assessment & Plan Assessment & Plan (1) Alcohol use disorder, severe, dependence: Code(s): F10.20 - Alcohol dependence, uncomplicated Category: Medical Plan: Patient has seen comprehensive care and was asking for Vivitrol but tramadol needs to be tapered before that. (2) Generalized anxiety disorder: Comment: decline counselling referral Code(s): F41.1 - Generalized anxiety disorder Category: Medical Plan: Continue with present medication as needed (3) Hypertension: Code(s): I10 - Essential (primary) hypertension Category: Medical Plan: Continue with blood pressure medication. Decrease salt intake and exercise on lisinopril 5 mg once a day (4) Hypercholesterolemia: Code(s): E78.00 - Pure hypercholesterolemia, unspecified Category: Medical Plan: Avoid fried foods, chicken skin, eggs, butter margarine, pastries and meat. Be it pork or beef they have a lot of cholesterol LDL goal of less than 130 and triglyceride of less than 150 (5) GERD (gastroesophageal reflux disease): Code(s): K21.9 - Gastro-esophageal reflux disease without esophagitis Category: Medical Qualifiers: Esophagitis presence: esophagitis presence not specified Qualified Code(s): K21.9 - Gastro-esophageal reflux disease without esophagitis Plan: Avoid the foods that causes that usually spicy foods, tomato products, juices, coffee, soda and foods that your sensitive to. After eating do not lie down, allow 3-4 hours before in lie down. And keep the head of bed above 30 degrees to avoid the acid from going up. (6) Hepatic steatosis: Code(s): K76.0 - Fatty (change of) liver, not elsewhere classified Category: Medical Plan: Low-fat diet and exercise (7) Anemia: Code(s): D64.9 - Anemia, unspecified Category: Medical Plan: Continue to monitor (8) Lumbar spondylosis: Comment: January 2025 MRI Code(s): M47.816 - Spondylosis without myelopathy or radiculopathy, lumbar region Category: Medical Plan: Patient has seen pain management and hasRecommended physical therapy Plan History of Present Illness The patient is a 59-year-old male presenting for a follow-up visit to manage multiple chronic conditions. The patient has a history of generalized anxiety disorder and gastroesophageal reflux disease (GERD). He has been managing these conditions with lifestyle modifications and medications as needed. The patient underwent left hip arthroplasty in August 2018 due to avascular necrosis of the left hip. He continues to experience some discomfort and is under pain management for multilevel degenerative spondylosis. The patient has a history of hypercholesterolemia and elevated triglycerides, with the most recent triglyceride level at 318 mg/dL, which is an improvement from previous levels. He is on a cholesterol management plan with a goal of LDL less than 130 mg/dL and triglycerides less than 150 mg/dL. The patient has a history of alcohol use disorder and hepatic steatosis, with recent liver function tests showing elevated liver enzymes. He is interested in Vivitrol for alcohol use disorder but is currently on tramadol, which needs to be tapered before starting Vivitrol. The patient has hypertension, currently managed with lisinopril, which was rec ently increased to 10 mg due to elevated blood pressure readings. The patient was noted to have mild anemia with hemoglobin at 13 g/dL and hematocrit at 37% in January. His blood sugar was elevated at 107 mg/dL, and he is advised to monitor his diet and exercise. Health Maintenance - Cholesterol management plan with LDL goal of less than 130 mg/dL and triglycerides less than 150 mg/dL - Blood pressure management with lisinopril, increased to 10 mg - Monitoring of liver function due to hepatic steatosis and alcohol use disorder - Tapering of tramadol to initiate Vivitrol for alcohol use disorder Social History - Substance Use: History of alcohol use disorder, currently interested in Vivitrol treatment - Exercise: Advised to engage in physical therapy for degenerative spondylosis Review of Systems - Cardiovascular: Reports palpitations when anxious. Denies chest pain or syncope. - Musculoskeletal: Reports discomfort in the left hip and back due to degenerative spondylosis. - Gastrointestinal: Reports symptoms of GERD. Denies abdominal pain or changes in bowel habits. Physical Exam - Cardiovascular: Regular rate and rhythm, no murmurs or gallops - Blood Pressure: Elevated Results - Labs: Mild anemia with hemoglobin at 13 g/dL and hematocrit at 37% - Labs: Elevated blood sugar at 107 mg/dL - Labs: Elevated liver enzymes with AST and ALT levels noted - Labs: Elevated triglycerides at 318 mg/dL Plan Patient was informed and verbally consented to the use of an ambient scribe for clinic note documentation during this visit. 1. Generalized Anxiety Disorder The patient continues to manage generalized anxiety disorder with lifestyle modifications and medications as needed. No changes to the current management plan were discussed during this visit. 2. Gastroesophageal Reflux Disease (Gerd) The patient is advised to continue with a low-fat diet and new exercise regimen to manage GERD symptoms. Monitoring of symptoms will continue. 3. Avascular Necrosis Of The Left Hip The patient underwent left hip arthroplasty in August 2018 and continues to experience some discomfort. He is under pain management for multilevel degenerative spondylosis and advised to engage in physical therapy. 4. Hypercholesterolemia The patient is on a cholesterol management plan with a goal of LDL less than 130 mg/dL and triglycerides less than 150 mg/dL. Recent triglyceride levels have improved but remain elevated at 318 mg/dL. 5. Alcohol Use Disorder The patient is interested in Vivitrol for alcohol use disorder but is currently on tramadol, which needs to be tapered before starting Vivitrol. Monitoring of liver function is advised due to hepatic steatosis. 6. Hypertension The patient's hypertension is managed with lisinopril, which was recently increased to 10 mg due to elevated blood pressure readings. Continued monitoring of blood pressure is advised. 7. Anemia The patient was noted to have mild anemia with hemoglobin at 13 g/dL and hematocrit at 37% in January. No specific interventions were discussed during this visit. 8. Elevated Blood Sugar The patient's blood sugar was elevated at 107 mg/dL. He is advised to monitor his diet and exercise to manage blood sugar levels. 9. Elevated Liver Enzymes The patient has elevated liver enzymes, likely related to alcohol use. Monitoring of liver function is advised, and the patient is encouraged to reduce alcohol intake. Discussion Notes During the visit, we discussed the management of the patient's multiple chronic conditions, including the need to taper tramadol before starting Vivitrol for alcohol use disorder. We also reviewed the patient's blood pressure management, increasing lisinopril to 10 mg due to elevated readings. The importance of monitoring liver function and managing cholesterol levels was emphasized. The patient was advised to continue with lifestyle modifications for GERD and to engage in physical therapy for degenerative spondylosis. Patient Instructions - Taper tramadol as discussed to prepare for Vivitrol treatment. - Continue lisinopril at 10 mg daily for blood pressure management. - Follow a low-fat diet and engage in regular exercise to manage GERD and cholesterol levels. - Monitor liver function and reduce alcohol intake. - Attend physical therapy sessions as recommended for back and hip discomfort. Medications: Changed From magnesium oxide (MagOx) 400 mg PO BID 20 tabs 0RF To magnesium oxide (MagOx) 400 mg PO .QD 30 tabs 3RF From tramadol 50 mg PO BID PRN 60 tabs 3RF pain M25.552 - Pain in left hip To tramadol 50 mg PO .QD PRN 30 tabs 0RF pain M25.552 - Pain in left hip From lisinopril 5 mg PO DAILY 30 tabs 1RF I10 - Essential (primary) hypertension To lisinopril 10 mg PO DAILY 30 tabs 3RF I10 - Essential (primary) hypertension Refilled gabapentin 300 mg PO TID 90 caps 0RF pain 30 days M47.816 - Spondylosis without myelopathy or radiculopathy, lumbar region, M54.50 - Low back pain, unspecified triamcinolone acetonide 0.5% 1 appl topical BID 30 grams 0RF L30.9 - Dermatitis, unspecified hydroxyzine HCl 50 mg PO BID 180 tabs 2RF F41.9 - Anxiety disorder, unspecified fluticasone propionate 50 mcg/actuation 1 spray intranasal DAILY 16 mL 5RF
[2025-03-13 14:24] VITALS: BP 140/82; PULSE 101; TEMP 36.3; O2SAT 96; BMI 23.5
== END 2025-03-13 15:01 | disposition home or self-care (01) ==
LOC: HO.HMCH 14:11
PROVIDERS: PCP Internal Medicine; Visit Provider Internal Medicine
DX: F10.20 Alcohol dependence, uncomplicated (principal); F41.1 Generalized anxiety disorder; I10 Essential (primary) hypertension; E78.00 Pure hypercholesterolemia, unspecified; K21.9 Gastro-esophageal reflux disease without esophagitis; K76.0 Fatty (change of) liver, not elsewhere classified; D64.9 Anemia, unspecified; M47.816 Spondylosis without myelopathy or radiculopathy, lumbar region

== ENCOUNTER 2025-03-23 13:43 | Outpatient (REF) | payer MEDICARE, MEDICAID, SELFPAY ==
--- NOTE | 2025-03-23 13:48 | EMG_ITS ---
Chief complaint: Left-sided back pain with numbness in left foot. Reason for referral: Evaluate for radiculopathy versus neuropathy Referred by: Meryl Merritt SALES PLANNER Procedure done: Left lower extremity NCS/EMG Patient refuses testing for right side, denying any symptoms on right side. Precautions and/or limitations: None The limb temperature was monitored continuously and remained between 32-36 degrees C during the performance of the NCS. Nerve Conduction Studies Anti Sensory Summary Table ?Stim Site NR Onset (ms) Norm Onset (ms) Peak (ms) Norm Peak (ms) O-P Amp (?V) Norm O-P Amp Site1 Site2 Delta-0 (ms) Dist (cm) Augustine (m/s) Norm Augustine (m/s) Left Sural Anti Sensory (Lat Mall) Calf ? 2.8 3.3 <4.0 5.0 >5.0 Calf Lat Mall 2.8 14.0 50 Motor Summary Table ?Stim Site NR Onset (ms) Norm Onset (ms) O-P Amp (mV) Norm O-P Amp iAmp (mV) Amp (1st) (%) Site1 Site2 Delta-0 (ms) Dist (cm) Augustine (m/s) Norm Augustine (m/s) Left Peroneal Motor (Ext Dig Brev) Ankle ? 3.8 <4.0 4.7 >2.5 6.3 100.0 Ankle Ext Dig Brev 3.8 0.0 B Fib ? 9.9 4.0 5.2 85.1 B Fib Ankle 6.1 28.5 47 >40 Poplt ? 10.9 3.7 4.8 78.7 Poplt B Fib 1.0 5.0 50 >40 Left Tibial Motor (Abd Elizalde Brev) Ankle ? 4.1 <5 7.9 >2.5 9.4 100.0 Ankle Abd Elizalde Brev 4.1 0.0 Knee ? 11.8 6.4 7.7 81.0 Knee Ankle 7.7 34.0 44 >40 EMG ?Side Muscle Nerve Root Ins Act Fibs Psw Amp Dur Poly Recrt Int Pat Comment Left AbdHallucis MedPlantar S1-2 Nml Nml Nml Nml Nml 0 Nml Complete Left AntTibialis Dp Br Peron L4-5 Incr 1+ 1+ Nml Nml 0 Nml Complete Left PostTibialis Tibial L5, S1 Nml 1+ 1+ Nml Nml 0 Nml Complete Left MedGastroc Tibial S1-2 Nml Nml Nml Nml Nml 0 Nml Complete Left VastusMed Femoral L2-4 Nml Nml Nml Nml Nml 0 Nml Complete Paraspinal EMG ?Side Muscle Nerve Root Ins Act Fibs Psw Comment Left Lumbar Upper Rami Nml Nml Nml Left Lumbar Mid Rami Nml Nml Nml Left Lumbar Lower Rami Incr 1+ 1+ FINDINGS: All motor and sensory nerves tested showed normal latencies, amplitudes and conduction velocities. Concentric needle EMG was performed in selected muscles of the left lower extremity and lumbar paraspinals. Study revealed signs of electric abnormalities as shown in the table above. Left anterior tibialis and posterior tibialis showed increased insertional activity, PSWs and fibrillations. Left lower lumbar paraspinals showed increased insertional activity, PSWs and fibrillations. IMPRESSION: 1. This is an abnormal study. 2. There is electrodiagnostic evidence for left L5-S1 radiculopathy. 3. There is no electrodiagnostic evidence for peroneal neuropathy, tibial neuropathy, lumbosacral plexopathy, or peripheral neuropathy. Thank you for your kind referral. Aranza Miller MD, JOCY Board Certified, [place] Board of [employer] Medicine and Rehabilitation (ABPMR) Board Certified, [place] Board of Electrodiagnostic Medicine (ABEM) [place] [id number] [facility]
--- OUTSIDE RECORDS SUMMARY | 2025-03-23 13:58 | XMS_ITS | Clinical Summary ---
Author Organization [employer] [facility] Address [address] [place] [address] Care Team Providers Care Animal Care Specialist Name Role Phone Unavailable Primary Care [...] age to complete this topic Insurance MEDICARE [facility] STANDARD
== END 2025-03-23 13:44 | disposition home or self-care (01) ==
LOC: HO.NEURO 13:43
PROVIDERS: PCP Internal Medicine; Visit Provider Nurse Practitioner Family
DX: M47.816 Spondylosis without myelopathy or radiculopathy, lumbar region (principal); F10.10 Alcohol abuse, uncomplicated; M54.50 Low back pain, unspecified; G62.9 Polyneuropathy, unspecified
CPT/HCPCS: 95886; 95908

== ENCOUNTER → 2025-03-23 13:48 | Outpatient (BNV) | payer MEDICARE, MEDICAID, SELFPAY | PROVIDERS: PCP Internal Medicine; Visit Provider Physical Medicine & Rehabilitation | DX: M54.16 Radiculopathy, lumbar region (principal) | CPT/HCPCS: 95886; 95908 ==

== ENCOUNTER 2025-04-04 14:06 | Outpatient (AMB) | payer MEDICARE, MEDICAID, SELFPAY ==
--- NOTE | 2025-04-04 14:13 | A.OFFVIS_ITS ---
Vital Signs 04/04/25 14:19 Height 5 ft Weight 132 lb BMI 25.8 BP 160/98 H Blood Pressure Location Rt brachial Position Sitting Pulse 94 Pulse Source Pulse Oximeter Pulse Oximetry (%) 97 Oxygen Delivery Method Room Air Intake Visit Reasons: MAT Allergies povidone-iodine Allergy (Verified 04/04/25 14:20) Rash HPI Comments Details: A 59-year-old male presents for a follow-up visit r/t AUD to assess completion of tapering process from tramadol. Reports on last month of tramadol use and looking forward to starting Vivitrol in 1 month. Acknowledges minimizing alcohol consumption and will work on continuing to reduce further and work towards sobriety. [facility] Medical History Hypomagnesemia Blood pressure elevated without history of HTN Colon cancer screening declined Hypertriglyceridemia Hypercholesterolemia Avascular necrosis of bone of left hip Insomnia Polysubstance abuse Anxiety and depression Alcohol abuse History of pancreatitis GERD (gastroesophageal reflux disease) Surgical History History of drainage of abscess H/O total hip arthroplasty Family History Father CAD (coronary artery disease) S/P CABG x 2 Mother Hypertension Osteoarthritis Brother Alive and well Sister Deaf Maternal Grandmother Cancer Maternal Grandfather Dementia Family/Other Alzheimers disease Social History Household Members: Significant Other Housing: Apartment Do you presently have visiting nurse or other home services: No Alcohol intake: current Alcohol intake frequency: 3 or more drinks per day Alcohol type: hard liquor and other Comment: [place] Patient Tobacco Use Status: Former Tobacco user Tobacco use type: Cigarette Years Smoked: 2010 quit e-Cigarette/Vaping Use: Never Used Second Hand Smoke Exposure: Yes Advance Directives Date on File: 08/01/24 service: No Current occupational status: disabled and other Current occupation: right handed. Cognitive needs: No Hearing needs: No Vision needs: Yes (yes but he's not wearing them) Review of Systems Const All systems reviewed & are unremarkable except as noted in HPI and below Physical Exam Vital Signs: Last Vital Signs Pulse 94 04/04/25 14:19 BP 160/98 H 04/04/25 14:19 Pulse Ox 97 04/04/25 14:19 Oxygen Delivery Method Room Air 04/04/25 14:19 BMI result Body Mass Index 25.8 Const General: cooperative Assessment & Plan Assessment & Plan (1) Alcohol use disorder, severe, dependence: Code(s): F10.20 - Alcohol dependence, uncomplicated Category: Medical Plan The plan is to order Vivitrol to administer in 1 month pending completion of tramadol use and insurance approval. Risk reduction activities discussed to minimize alcohol consumption and encouraged to consider attending an inpatient detox program. A referral offered for mental health services and he declined. Follow-up in 1 month or sooner if needed. Patient Instructions: - Vivitrol ordered to be administered in 1 month pending completion of tramadol use and insurance approval. - Engage in risk reduction activities to minimize alcohol consumption and consider an inpatient detox program. - Follow-up in 1 month or sooner if needed. - Call with questions, concerns, or to report side effects/new onset of symptoms to [facility]. - The patient verbalized understanding and agreed with plan of care. Coding Level of Care Code Est Pt Level 3 (27421) Diagnoses Alcohol use disorder, severe, dependence F10.20
[2025-04-04 14:19] VITALS: BP 160/98; PULSE 94; O2SAT 97; BMI 25.8
--- OUTSIDE RECORDS SUMMARY | 2025-04-04 17:52 | XMS_ITS | Clinical Summary ---
Author Organization [employer] [facility] Address [address] [place] [address] Care Team Providers Care Sales And Marketing Professional Name Role Phone Unavailable Primary Care Provider [...] age to complete this topic Insurance MEDICARE [facility] STANDARD
== END 2025-04-04 14:36 | disposition home or self-care (01) ==
LOC: HO.HCC 14:06
PROVIDERS: PCP Internal Medicine; Visit Provider Clinical Nurse Specialist Psychiatric/Mental Health
DX: F10.20 Alcohol dependence, uncomplicated (principal)
CPT/HCPCS: 99213

== ENCOUNTER → 2025-04-04 14:06 | Outpatient (BNVA) | payer MEDICARE, MEDICAID, SELFPAY | PROVIDERS: PCP Internal Medicine; Visit Provider Clinical Nurse Specialist Psychiatric/Mental Health | DX: F10.20 Alcohol dependence, uncomplicated (principal) | CPT/HCPCS: 99212 ==

== ENCOUNTER 2025-05-03 14:23 | Outpatient (AMB) | payer MEDICARE, MEDICAID, SELFPAY ==
--- NOTE | 2025-05-03 14:27 | AM.OFFVISNUR ---
Vital Signs 05/03/25 14:31 BP 140/78 H Pulse 92 Pulse Oximetry (%) 94 Intake Visit Reasons: Injection Allergies povidone-iodine Allergy (Verified 05/03/25 14:38) Rash Nursing Note Jose is present for his first Vivitrol injection in this series, he has received them in the past. Jose has tapered off of Tramadol prior to injection, UDS verified. Thorough education provided with signs and symptoms of adverse and injection site reactions, all questions answered. Contract signed and wallet ID card filled out. Jose will call with any questions or concerns. Follow up in 4 weeks for the next injection. Office Meds Vivitrol 380 mg intramuscular suspension,extended release Performing Provider: RUDY Portillo Performing Location: [facility] Administered by: Scarlet Gilmore RN on 05/03/25 15:25 Dose Route Admin Location Dispensed Lot Number Expiration Date [facility] Station Tender 380 mg IM RG 380 mg [id number] 11/18/26 76414-143-00 [employer] Total Dispensed Waste 380 mg 0 % Comments: Pt is present for Vivitrol injection. This is the first in this series as he has had in the past, tolerated injection well. Pt educated on signs and symptoms of infection at the injection site, urged to call [facility] with any questions or concerns. Follow up appointment made in 4 weeks for next injection. Assessment & Plan Assessment & Plan Orders: Orders AMB 14 Panel Urine Drug Screen Today F10.20 - Alcohol dependence, uncomplicated AMB Naltrexone Injection Patient Supplied (NC) Today F10.20 - Alcohol dependence, uncomplicated Coding
[2025-05-03 14:31] VITALS: BP 140/78; PULSE 92; O2SAT 94
--- OUTSIDE RECORDS SUMMARY | 2025-05-03 17:50 | XMS_ITS | Clinical Summary ---
Author Organization [employer] [facility] Address [address] [place] [address] Care Team Providers Care Asset Protection Professional Name Role Phone Unavailable Primary Care [...] of 3 - 19+ 3-dose series) 1985 RSV Patients and Patients Aged 60 years or older (1 - Risk 50-74 years 1-dose series) 2016 Zoster Vaccines (1 of 2) 2016 Pneumococcal Vaccine: 50+ Years (3 of 3 - PCV20 or PCV21) 01/13/2023 01/13/2018, 03/21/2017 DTaP/Tdap/Td Vaccines (2 - Td or Tdap) 10/25/2024 10/25/2014 COVID-19 Vaccine ( season) 2025 03/18/2023, 07/13/2022, 11/16/2020, Additional history exists Influenza Vaccine (#1) 2025 3, 02/25/2021, 06/05/2020, Additional history exists HIB Vaccines Aged Out No longer eligi [...] to complete this topic Insurance MEDICARE [facility] STANDARD
== END 2025-05-03 15:49 | disposition home or self-care (01) ==
LOC: HO.HCC 14:23
PROVIDERS: PCP Internal Medicine
DX: F10.20 Alcohol dependence, uncomplicated (principal)

== ENCOUNTER → 2025-05-03 14:23 | Outpatient (BNVA) | payer MEDICARE, MEDICAID, SELFPAY | PROVIDERS: PCP Internal Medicine | DX: F10.20 Alcohol dependence, uncomplicated (principal) | CPT/HCPCS: 80307; 96372; J2315 ==

== ENCOUNTER 2025-06-06 14:09 | Outpatient (AMB) | payer MEDICARE, MEDICAID, SELFPAY ==
[2025-06-06 14:28] VITALS: BP 134/90; PULSE 80; TEMP 36.3; O2SAT 97; BMI 23.2
--- NOTE | 2025-06-06 14:28 | A.OFFPC_ITS ---
Vital Signs 06/06/25 14:28 Height 5 ft Weight 119 lb BMI 23.2 BP 134/90 H Blood Pressure Location Lt brachial Position Sitting Pulse 80 Pulse Source Pulse Oximeter Temp 97.3 F Temp Source Temporal Artery Scan Pulse Oximetry (%) 97 Oxygen Delivery Method Room Air Intake Visit Reasons: pradip,alcohol abuse Die Lay Out Worker Required: No Bandoleer Straightener Stamper: Present Accompanied by: Spouse Allergies povidone-iodine Allergy (Verified 06/06/25 14:29) Rash Medication List - Last Reconciled 06/06/25 by Gillian Dupree MD acetaminophen (Tylenol Extra Strength) 500 mg PO Q6H PRN blood pressure monitor (Blood Pressure Kit) As directed cane As directed clonazepam 1 mg PO DAILY fluticasone propionate 50 mcg/actuation 1 spray intranasal DAILY folic acid 1 mg PO DAILY 90 days gabapentin 300 mg PO TID 30 days hydroxyzine HCl 50 mg PO BID lisinopril 10 mg PO DAILY magnesium oxide (MagOx) 400 mg PO .QD methylprednisolone (Medrol (Junior)) PO PER PKG DIR naltrexone microspheres ER (Vivitrol) 380 mg IM Q4W 30 days omeprazole 20 mg PO BID@0630,1630 sildenafil 100 mg PO DAILY PRN thiamine mononitrate (vit B1) 100 mg PO DAILY 90 days trazodone 50 mg PO BEDTIME PRN triamcinolone acetonide 0.5% 1 appl topical BID Tobacco use date assessed: 06/06/25 Dental Screening Dental Screen Date: 06/06/25 Did you have a dental visit in the last 12 months?: No Did you have a dental problem in the last 6 months where you did not have access to dental care?: No Was dental information given to patient?: Patient has dentist HPI HPI Comments History of Present Illness Details History of Present Illness The patient is a 60-year-old male presenting for a follow-up visit, last seen in February 2025. His medical history is significant for generalized anxiety disorder, avascular necrosis of the left hip diagnosed in 2017 managed with an arthroplasty in 2018, alcohol abuse, hepatic steatosis, and lumbar degenerative disc disease. Regarding his alcohol use, the patient attends a comprehensive care program. His liver function tests have shown an alcoholic pattern, and an abdominal ultrasound from November revealed hepatic steatosis. A test performed in April 2025 detected multiple drugs in his system. The patient has experienced lower extremity numbness and has a history of a pinched nerve. A nerve conduction test confirmed a left L5-S1 radiculopathy. He also has a history of mild anemia. Health Maintenance - The patient is strongly advised to abs tain from alcohol. - [facility]. - A low-fat diet and exercise were recom mended. - The patient has an upcoming appointmen t with a neurosurgery/organizational development specialist. Social History - Substance Use: The patient has a histo ry of alcohol abuse and is engaged in a comprehensive care program. - He was strongly advised to abstain fro m alcohol. - A drug test in April 2025 was posit alicia for multiple substances, though the patient denied knowingly using them. - Diet and Exercise: He was advised to f ollow a low-fat diet and exercise. Results - Labs: Liver function tests showed an a lcoholic pattern. - Mild anemia was noted. - A drug test from April 2025 was pos itive for multiple substances. - Imaging: An abdominal ultrasound in [facility] showed hepatic steatosis. - Tests: A nerve conduction study showed left L5-S1 lumbar radiculopathy. [facility] Medical History (Updated 06/06/25 @ 14:46 by Gillian Dupree MD) Hypomagnesemia Blood pressure elevated without history of HTN Colon cancer screening declined Hypertriglyceridemia Hypercholesterolemia Avascular necrosis of bone of left hip Insomnia Polysubstance abuse Anxiety and depression Alcohol abuse History of pancreatitis GERD (gastroesophageal reflux disease) Surgical History History of drainage of abscess H/O total hip arthroplasty Family History Father CAD (coronary artery disease) S/P CABG x 2 Mother Hypertension Osteoarthritis Brother Alive and well Sister Deaf Maternal Grandmother Cancer Maternal Grandfather Dementia Family/Other Alzheimers disease Social History Household Members: Significant Other Housing: Apartment Do you presently have visiting nurse or other home services: No Alcohol intake: current Alcohol intake frequency: 3 or more drinks per day Alcohol type: hard liquor and other Comment: Vodka Patient Tobacco Use Status: Former Tobacco user Tobacco use type: Cigarette Years Smoked: 2010 quit e-Cigarette/Vaping Use: Never Used Second Hand Smoke Exposure: Yes Advance Directives Date on File: 08/01/24 service: No Current occupational status: disabled and other Current occupation: right handed. Cognitive needs: No Hearing needs: No Vision needs: Yes (yes but he's not wearing them) Questionnaire PHQ-9 Over the last 2 weeks, how often have you been bothered by any of the following problems? 1. Little interest or pleasure in doing things: not at all 2. Feeling down, depressed, or hopeless: not at all 3. Trouble falling or staying asleep, or sleeping too much: not at all 4. Feeling tired or having little energy: not at all 5. Poor appetite or overeating: not at all 6. Feeling bad about yourself - or that you are a failure or have let yourself or your family down: not at all 7. Trouble concentrating on things, such as reading the newspaper or watching television: not at all 8. Moving or speaking so slowly that other people could have noticed. Or the opposite - being so fidgety or restless that you have been moving around a lot more than usual: not at all 9. Thoughts that you would be better off or of hurting yourself in some way: not at all Total score: 0 Depression Screening Interpretation: Negative Depression Screening Done: Yes Source: Developed by Drs. Andrae Del Rio, Jennifer Ahmadi, Zeferino Villarreal and colleagues, with an educational medardo from [employer]. Thrive Questionnaire Date Thrive assessed: 06/06/25 I am a: Patient What is your living situation today?: I have a steady place to live Within the past 12 months, did the food you bought not last and you didn't have the money to get more?: Never true Within the past 12 months, did you worry whether your food would run out before you got money to buy more?: Never true Do you have trouble paying for medicines?: No Do you have trouble getting transportation to medical appointments?: No Do you have trouble paying your heating and electricity bill?: No Do you have trouble taking care of your child, family member or friend?: No Do you have trouble with day-to-day activities such as bathing, preparing meals, shopping, managing finances, etc.?: No Are you currently unemployed and looking for a job?: No Are you interested in more education?: No Please select the resources that you would like help with: None Currently or been in a relationship where the following occur: No concerns reported THRIVE Score: 0 AUDIT C Alcohol Use Questionnaire (AUDIT-C) 1. How often do you have a drink containing alcohol?: Monthly or less 2. How many drinks containing alcohol do you have on a typical day when you are drinking?: 1 or 2 3. How often do you have six or more drinks on one occasion?: Less than monthly Total Score: 2 PRADIP-7 AMB Questionnaire PRADIP-7 Date PRADIP - 7 assessed: 06/06/25 Feeling nervous, anxious, or on edge: 0 = Not at all Not being able to stop or control worryin = Not at all Worrying too much about different things: 0 = Not at all Trouble relaxin = Not at all Being so restless that it is hard to sit still: 0 = Not at all Becoming easily annoyed or irritable: 0 = Not at all Feeling afraid as if something awful might happen: 0 = Not at all Total PRADIP-7 score (0-4 normal; 5-9 mild; 10-14 moderate; 15-21 severe): 0 Source: Developed by Drs. Andrae Del Rio, Jennifer Ahmadi, Zeferino Villarreal and colleagues, with an educational medardo from [employer]. Review of Systems Narrative Review of Systems - Neurological: Reports lower extremity numbness and pain from a pinched nerve. - Musculoskeletal: Reports back pain and leg pain. - Psychiatric: Reports anxiousness. - Sleep: Reports trazodone helps him sleep. - Gastrointestinal: He is on omeprazole. Physical exam (Primary Care) Vital Signs: Last Vital Signs Temp 97.3 F 06/06/25 14:28 Pulse 80 06/06/25 14:28 BP 134/90 H 06/06/25 14:28 Pulse Ox 97 06/06/25 14:28 Oxygen Delivery Method Room Air 06/06/25 14:28 BMI result Body Mass Index 23.2 Tobacco/Smoking Status: Tobacco use Status Tobacco use date assessed 06/06/25 06/06/25 14:30 Patient Tobacco Use Status Former Tobacco user 06/06/25 14:30 Tobacco use type Cigarette 06/06/25 14:30 e-Cigarette/Vaping Use Never Used 06/06/25 14:30 PHQ-9: PHQ-9 Score PHQ-9: Total score 0 06/06/25 14:46 Depression Screening Interpretation: Negative Thrive Assessment: Date of Thrive Assessment Date Thrive assessed 06/06/25 06/06/25 14:30 Currently or been in a relationship where the following occur: No concerns reported Narrative Physical Exam Const General: alert; No acute distress Eyes Conjunctivae: conjunctivae normal Resp Auscultation: clear to auscultation bilaterally Cardio Rate: regular rate Rhythm: regular rhythm GI Inspection: Yes normal to inspection Extrem General: Yes normal to inspection and No edema Coding Level of Care Code Est Pt Level 4 (53121) Add On Problem Visit Only Diagnoses Alcohol abuse F10.10 Gastroesophageal reflux disease, unspecified whether esophagitis present K21.9 Esophagitis presence: esophagitis presence not specified Hepatic steatosis K76.0 Anemia D64.9 Lumbar radiculopathy M54.16 Polysubstance abuse F19.10 Assessment & Plan Assessment & Plan (1) Alcohol abuse: Code(s): F10.10 - Alcohol abuse, uncomplicated Category: Social Hx Plan: Patient is strongly advised to abstain from alcohol. Patient goes to comprehensive care. Patient declines any further treatment (2) GERD (gastroesophageal reflux disease): Code(s): K21.9 - Gastro-esophageal reflux disease without esophagitis Category: Medical Qualifiers: Esophagitis presence: esophagitis presence not specified Qualified Code(s): K21.9 - Gastro-esophageal reflux disease without esophagitis Plan: Avoid the foods that causes that usually spicy foods, tomato products, juices, coffee, soda and foods that your sensitive to. After eating do not lie down, allow 3-4 hours before in lie down. And keep the head of bed above 30 degrees to avoid the acid from going up. (3) Hepatic steatosis: Code(s): K76.0 - Fatty (change of) liver, not elsewhere classified Category: Medical Plan: Low-fat diet and exercise (4) Anemia: Code(s): D64.9 - Anemia, unspecified Category: Medical Plan: Will continue to monitor (5) Lumbar radiculopathy: Code(s): M54.16 - Radiculopathy, lumbar region Category: Medical Plan: Noted nerve conduction test showing lumbar radiculopathy. Patient declines any further workup for lumbar radiculopathy and would like to see Orthopedics. (6) Polysubstance abuse: Code(s): F19.10 - Other psychoactive substance abuse, uncomplicated Category: Medical Plan: Patient goes to comprehensive care. Patient states has not been using and that was in 05/03/2025. Will give patient another chance but discussed that if we find that there are other drugs in the system will have to discontinue the medications. Plan Plan Patient was informed and verbally consented to the use of an ambient scribe for clinic note documentation during this visit. 1. Polysubstance Abuse And Alcohol Use Disorder The patient has a history of alcohol abuse with related hepatic steatosis and polysubstance abuse, indicated by a positive drug screen in April 2025. He was strongly advised to abstain from alcohol. The patient will continue with his comprehensive care program. The clonazepam prescription will not be refilled due to its narcotic nature and the recent positive drug screen. Condition will continue to be monitored. 2. Lumbar Radiculopathy And Chronic Pain The patient complains of ongoing lower extremity numbness and pain, which nerve conduction studies confirmed as left L5-S1 radiculopathy. He has an appointment scheduled with a neurosurgery/organizational development specialist tomorrow. An MRI of the lower ba ck was offered, but the patient declined at this time. A small amount of pain medication will be prescribed, with strict instructions not to mix it with other substances. 3. Medication Management Refills for hydroxyzine, omeprazole, and trazodone will be sent to the pharmacy. Discussion Notes I discussed with the patient the results of his recent drug test, which was positive for multiple substances. I explained that because of this result and the narcotic nature of clonazepam, I could not refill his prescription for it, as it would be a disservice to his health. We reviewed that his nerve conduction test points to his lower back as the cause of his leg numbness, and I offered an MRI of his lumbar spine, which he declined, citing an upcoming appointment with a organizational development specialist. I reiterated the importance of abstaining from alcohol. I agreed to prescribe a small amount of pain medication with a strong warning against mixing it with other drugs. I am sending in refills for his hydroxyzine, omeprazole, and trazodone as requested. Patient Instructions - You must stop drinking alcohol. - Continue going to your comprehensive care program for alcohol use. - Follow a low-fat diet and try to exercise regularly. - Your prescription for clonazepam will not be refilled. - I am sending refills for hydroxyzine, omeprazole, and trazodone to your pharmacy. - I am prescribing a small amount of pain medication. - Do not mix this medication with any other drugs that are not prescribed to you. - Make sure to attend your appointment with the organizational development specialist tomorrow to discuss your back and leg pain. Medications: Refilled hydroxyzine HCl 50 mg PO BID 180 tabs 2RF F41.9 - Anxiety disorder, unspecified omeprazole 20 mg PO BID@0630,1630 60 caps 3RF clonazepam 1 mg PO DAILY 14 tabs 0RF anxiety trazodone 50 mg PO BEDTIME PRN 30 tabs 0RF sleep tramadol 50 mg PO .QD PRN 30 tabs 0RF pain M25.552 - Pain in left hip
--- OUTSIDE RECORDS SUMMARY | 2025-06-06 18:56 | XMS_ITS | Clinical Summary ---
Author Organization [employer] [facility] Address [address] [place] [address] Care Team Providers Care Mailing Machine Helper Name Role Phone Unavailable Primary Care Provider [...] topic Meningococcal Vaccine Aged Out No barbara adnie eligible based on patient's age to complete this topic RSV under 20 months Aged Out No longe r eligible based on patient's age to complete this topic Rotavirus Vaccines Aged Out No longer eligible based on patient's age to complete this topic Insurance MEDICARE [facility] STANDARD
== END 2025-06-06 15:01 | disposition home or self-care (01) ==
LOC: HO.HMCH 14:10
PROVIDERS: PCP Internal Medicine; Visit Provider Internal Medicine
DX: F10.10 Alcohol abuse, uncomplicated (principal); F19.10 Other psychoactive substance abuse, uncomplicated; K21.9 Gastro-esophageal reflux disease without esophagitis; K76.0 Fatty (change of) liver, not elsewhere classified; D64.9 Anemia, unspecified; M54.16 Radiculopathy, lumbar region

== ENCOUNTER → 2025-06-06 14:09 | Outpatient (BNVA) | payer MEDICARE, MEDICAID, SELFPAY | PROVIDERS: PCP Internal Medicine; Visit Provider Internal Medicine | DX: F41.1 Generalized anxiety disorder (principal); F10.10 Alcohol abuse, uncomplicated; K21.9 Gastro-esophageal reflux disease without esophagitis; K76.0 Fatty (change of) liver, not elsewhere classified; M54.16 Radiculopathy, lumbar region; D64.9 Anemia, unspecified; Z13.31 Encounter for screening for depression; Z13.39 Encounter for screening examination for other mental health and behavioral disorders | CPT/HCPCS: 96127; 99212 ==